=== PATIENT | female | born 1965 | race Caucasian/White ===

== ENCOUNTER 2017-06-28 13:55 | Inpatient (IN) | payer MEDICAID ==
[~2017-06-28] VITALS: Ht 162.6 cm; Wt 108.0 kg
[2017-06-28] MEDS ORDERED: PRAZ1 PO (16:15)
[2017-06-28] MEDS ORDERED: LEVO125 PO (16:15)
[2017-06-28] MEDS ORDERED: VENL-193 PO (16:15)
[2017-06-28] MEDS ORDERED: MODA100 PO (16:15)
[2017-06-28] MEDS ORDERED: HYDR-3110 PO (16:15)
[2017-06-28] MEDS ORDERED: TRAZ-144 PO (16:15)
[2017-06-28] MEDS ORDERED: RANI150T7 PO (16:15)
[2017-06-28] MEDS ORDERED: HALOPERIDOL 5 MG TABLET PO PRN (16:15)
[2017-06-28] MEDS ORDERED: LITH300C3 PO (16:15)
[2017-06-28] MEDS ORDERED: CALC-1038 PO (16:15)
[2017-06-28] MEDS ORDERED: ZOLPIDEM TARTRATE 10 MG TABLET PO PRN (16:15)
[2017-06-28 16:18] VITALS: BP 142/82
[2017-06-28] MEDS ORDERED: VENL-67 PO (16:33)
[2017-06-28] MEDS ORDERED: PNEUMOCOCCAL VACCINE POLYVALENT 0.5 ML VIAL [PPSV23] IM ONE (17:15)
[2017-06-28] MEDS ORDERED: ACETAMINOPHEN 325 MG TABLET PO PRN (19:15)
[2017-06-28] MEDS ORDERED: NAPROXEN 500 MG TABLET PO PRN (19:15)
[2017-06-28] MEDS: HydrOXYzine PAMOATE 25 MG CAPSULE PO SCH (20:33)
[2017-06-28] MEDS: PRAZOSIN HCL 1 MG CAPSULE PO SCH (20:33)
[2017-06-28] MEDS: LITHIUM CARBONATE 600 MG CAPSULE PO SCH (20:33)
[2017-06-29 01:56] VITALS: BP 114/63
[2017-06-29] MEDS ORDERED: LEVOTHYROXINE SODIUM 125 MCG TABLET PO SCH (06:30)
[2017-06-29 08:30] LABS: BASOPHILS % (AUTO) 0.3 % (0.0-2.0); EOSINOPHILS % (AUTO) 2.3 % (1.0-6.0); HEMATOCRIT 38.4 % (36-46); HEMOGLOBIN 13.2 g/dL (12.0-16.0); LYMPHOCYTES # (AUTO) 2.6 K/uL (1.0-4.8); LYMPHOCYTES % (AUTO) 27.2 % (22.0-44.0); MEAN CORPUSCULAR HEMOGLOBIN 30.4 pg (26.0-34.0); MEAN CORPUSCULAR HGB CONC 34.4 G/dL (31.0-37.0); MEAN CORPUSCULAR VOLUME 88 fL (80-100); MONOCYTES # (AUTO) 0.4 K/uL (0.1-1.0); MONOCYTES % (AUTO) 4.1 % (2.0-9.0); NEUTROPHILS # (AUTO) 6.2 K/uL (1.8-7.7); NEUTROPHILS % (AUTO) 66.1 % (40.0-70.0); PLATELET COUNT (AUTO) 227 K/uL (150-450); RED BLOOD CELL COUNT(AUTO) 4.35 MIL/uL (4.00-5.20); RED CELL DISTRIBUTION WIDTH 12.9 % (11.5-14.5); WHITE BLOOD COUNT (AUTO) 9.4 K/uL (4.5-11.0)
[2017-06-29 08:32] LABS: ALANINE AMINOTRANSFERASE 25 U/L (12-78); ALBUMIN 3.3 g/dL (3.4-5.0); ANION GAP 6 mmol/L (8-16); ASPARTATE AMINOTRANSFERASE 16 U/L (15-37); BILIRUBIN,TOTAL 0.3 mg/dL (0.1-1.0); CALCIUM, TOTAL 8.9 mg/dL (8.8-10.5); CARBON DIOXIDE 27 mmol/L (22-29); CHLORIDE 106 mmol/L (98-107); CREATININE 0.73 mg/dL (0.60-1.30); GLOMERULAR FILTR. RATE CALC > 60 mL/min (>60); POTASSIUM 3.7 mmol/L (3.5-5.1); SODIUM SERUM 139 mmol/L (136-145); THYROID STIMULATING HORMONE 1.38 uIU/mL (0.36-3.74); TOTAL PROTEIN, SERUM 6.5 g/dL (6.4-8.2); UREA NITROGEN, BLOOD 11 mg/dL (7-18)
[2017-06-29 08:51] LABS: GLUCOSE, URINE (UA) NEGATIVE (NEGATIVE); KETONES,URINE NEGATIVE (NEGATIVE); LEUKOCYTE ESTERASE ,URINE NEGATIVE (NEGATIVE); OCCULT BLOOD,URINE SMALL (NEGATIVE); PROTEIN,URINE NEGATIVE (NEGATIVE)
[2017-06-29 08:53] LABS: APPEARANCE,URINE HAZY (CLEAR)
[2017-06-29 08:54] LABS: ADD UA MICROSCOPIC YES
[2017-06-29] MEDS: MODAFINIL 100 MG TABLET PO SCH (09:01)
[2017-06-29] MEDS: LITHIUM CARBONATE 300 MG CAPSULE PO SCH (09:01)
[2017-06-29] MEDS: NICOTINE 14 MG/24 HOUR PATCH TD SCH (09:02)
[2017-06-29] MEDS: VENLAFAXINE HCL 75 MG ER CAPSULE PO SCH (09:02)
[2017-06-29 09:03] VITALS: BP 142/77
[2017-06-29] MEDS: RANITIDINE HCL 150 MG TABLET PO SCH ×2 (09:04→16:18)
[2017-06-29 09:06] LABS: RBC,URINE 0-2 /HPF (0-2); SQUAMOUS EPITHELIAL CELL,UR Few /LPF (None Seen); WBC,URINE 0-2 /HPF (0-5)
[2017-06-29] MEDS: LORazepam 2 MG TABLET PO PRN ×2 (09:41→16:49)
[2017-06-29 16:20] VITALS: BP 113/68
[2017-06-29 20:20] VITALS: BP 124/73
[2017-06-29] MEDS: LITHIUM CARBONATE 600 MG CAPSULE PO SCH (20:21)
[2017-06-29] MEDS: HydrOXYzine PAMOATE 25 MG CAPSULE PO SCH (20:21)
[2017-06-29] MEDS: PRAZOSIN HCL 1 MG CAPSULE PO SCH (20:21)
[2017-06-30] MEDS: LEVOTHYROXINE SODIUM 50 MCG TABLET PO SCH (06:04)
[2017-06-30 06:35] VITALS: BP 123/65
[2017-06-30] MEDS: RANITIDINE HCL 150 MG TABLET PO SCH ×2 (08:26→17:34)
[2017-06-30] MEDS: NICOTINE 14 MG/24 HOUR PATCH TD SCH (08:26)
[2017-06-30] MEDS: VENLAFAXINE HCL 75 MG ER CAPSULE PO SCH (08:26)
[2017-06-30] MEDS: MODAFINIL 100 MG TABLET PO SCH (08:26)
[2017-06-30] MEDS: LITHIUM CARBONATE 300 MG CAPSULE PO SCH (08:26)
[2017-06-30 08:57] VITALS: BP 135/83
[2017-06-30] MEDS: LORazepam 2 MG TABLET PO PRN (12:18)
[2017-06-30 17:33] VITALS: BP 126/78
[2017-06-30] MEDS: HydrOXYzine PAMOATE 25 MG CAPSULE PO SCH (21:23)
[2017-06-30] MEDS: LITHIUM CARBONATE 600 MG CAPSULE PO SCH (21:23)
[2017-06-30] MEDS: PRAZOSIN HCL 1 MG CAPSULE PO SCH (21:23)
[2017-07-01] MEDS: LEVOTHYROXINE SODIUM 50 MCG TABLET PO SCH (06:40)
[2017-07-01 06:50] VITALS: BP 110/59
[2017-07-01 08:53] VITALS: BP 117/69
[2017-07-01] MEDS ORDERED: LITHIUM CARBONATE 300 MG CAPSULE PO ONE (09:00)
[2017-07-01] MEDS: VENLAFAXINE HCL 75 MG ER CAPSULE PO SCH (09:12)
[2017-07-01] MEDS: NICOTINE 14 MG/24 HOUR PATCH TD SCH (09:12)
[2017-07-01] MEDS: MODAFINIL 100 MG TABLET PO SCH (09:12)
[2017-07-01] MEDS: RANITIDINE HCL 150 MG TABLET PO SCH ×2 (09:12→16:09)
[2017-07-01] MEDS: ESCITALOPRAM OXALATE 10 MG TABLET PO SCH (09:13)
[2017-07-01] MEDS: LITHIUM CARBONATE 600 MG CAPSULE PO SCH ×2 (09:13→16:09)
[2017-07-01 16:21] VITALS: BP 139/71
[2017-07-01] MEDS: LORazepam 2 MG TABLET PO PRN (16:37)
[2017-07-01] MEDS ORDERED: LITHIUM CARBONATE 600 MG CAPSULE PO SCH (17:00)
[2017-07-01 20:20] VITALS: BP 135/80
[2017-07-01] MEDS: PRAZOSIN HCL 1 MG CAPSULE PO SCH (20:24)
[2017-07-01] MEDS: HydrOXYzine PAMOATE 25 MG CAPSULE PO SCH (20:24)
[2017-07-02 06:27] VITALS: BP 111/65
[2017-07-02] MEDS: LEVOTHYROXINE SODIUM 50 MCG TABLET PO SCH (06:46)
[2017-07-02 08:36] VITALS: BP 115/66
[2017-07-02] MEDS: ESCITALOPRAM OXALATE 10 MG TABLET PO SCH (09:43)
[2017-07-02] MEDS: VENLAFAXINE HCL 75 MG ER CAPSULE PO SCH (09:43)
[2017-07-02] MEDS: RANITIDINE HCL 150 MG TABLET PO SCH ×2 (09:43→16:52)
[2017-07-02] MEDS: MODAFINIL 100 MG TABLET PO SCH (09:43)
[2017-07-02] MEDS: NICOTINE 14 MG/24 HOUR PATCH TD SCH (09:43)
[2017-07-02] MEDS: LITHIUM CARBONATE 600 MG CAPSULE PO SCH ×2 (09:47→16:52)
[2017-07-02 16:13] VITALS: BP 112/73
[2017-07-02] MEDS: LORazepam 2 MG TABLET PO PRN (16:52)
[2017-07-02] MEDS: HydrOXYzine PAMOATE 25 MG CAPSULE PO SCH (21:26)
[2017-07-02] MEDS: PRAZOSIN HCL 1 MG CAPSULE PO SCH (21:26)
[2017-07-03 00:31] VITALS: BP 121/72
[2017-07-03] MEDS: LEVOTHYROXINE SODIUM 50 MCG TABLET PO SCH (05:59)
[2017-07-03 08:36] VITALS: BP 132/71
[2017-07-03] MEDS: RANITIDINE HCL 150 MG TABLET PO SCH ×2 (09:19→16:33)
[2017-07-03] MEDS: NICOTINE 14 MG/24 HOUR PATCH TD SCH (09:19)
[2017-07-03] MEDS: MODAFINIL 100 MG TABLET PO SCH (09:19)
[2017-07-03] MEDS: VENLAFAXINE HCL 75 MG ER CAPSULE PO SCH (09:19)
[2017-07-03] MEDS: ESCITALOPRAM OXALATE 10 MG TABLET PO SCH (09:19)
[2017-07-03] MEDS: LITHIUM CARBONATE 600 MG CAPSULE PO SCH ×2 (09:19→16:33)
[2017-07-03 16:18] VITALS: BP 129/84
[2017-07-03] MEDS: PRAZOSIN HCL 1 MG CAPSULE PO SCH (20:52)
[2017-07-03] MEDS: HydrOXYzine PAMOATE 25 MG CAPSULE PO SCH (20:52)
[2017-07-04 00:15] VITALS: BP 122/78
[2017-07-04] MEDS: LEVOTHYROXINE SODIUM 50 MCG TABLET PO SCH (06:10)
[2017-07-04 08:12] VITALS: BP 120/61
[2017-07-04] MEDS: LITHIUM CARBONATE 600 MG CAPSULE PO SCH ×2 (09:13→16:04)
[2017-07-04] MEDS: ESCITALOPRAM OXALATE 10 MG TABLET PO SCH (09:13)
[2017-07-04] MEDS: MODAFINIL 100 MG TABLET PO SCH (09:13)
[2017-07-04] MEDS: RANITIDINE HCL 150 MG TABLET PO SCH ×2 (09:13→16:04)
[2017-07-04] MEDS: VENLAFAXINE HCL 75 MG ER CAPSULE PO SCH (09:13)
[2017-07-04] MEDS: NICOTINE 14 MG/24 HOUR PATCH TD SCH (09:14)
[2017-07-04 16:13] VITALS: BP 119/83
[2017-07-04 20:31] VITALS: BP 121/76
[2017-07-04] MEDS: HydrOXYzine PAMOATE 25 MG CAPSULE PO SCH (20:31)
[2017-07-04] MEDS: PRAZOSIN HCL 1 MG CAPSULE PO SCH (20:31)
[2017-07-05] MEDS: LEVOTHYROXINE SODIUM 50 MCG TABLET PO SCH (06:02)
[2017-07-05 06:45] VITALS: BP 121/66
[2017-07-05 07:33] LABS: GLUCOSE,POINT OF CARE 142 MG/DL (70-110)
[2017-07-05 08:36] VITALS: BP 115/60
[2017-07-05] MEDS: NICOTINE 14 MG/24 HOUR PATCH TD SCH (08:37)
[2017-07-05] MEDS: MODAFINIL 100 MG TABLET PO SCH (08:37)
[2017-07-05] MEDS: VENLAFAXINE HCL 75 MG ER CAPSULE PO SCH (08:37)
[2017-07-05] MEDS: RANITIDINE HCL 150 MG TABLET PO SCH ×2 (08:38→16:22)
[2017-07-05] MEDS: ESCITALOPRAM OXALATE 10 MG TABLET PO SCH (08:38)
[2017-07-05] MEDS: LITHIUM CARBONATE 600 MG CAPSULE PO SCH ×2 (08:38→16:22)
[2017-07-05 16:34] VITALS: BP 124/62
[2017-07-05] MEDS: HydrOXYzine PAMOATE 25 MG CAPSULE PO SCH (20:57)
[2017-07-05] MEDS: PRAZOSIN HCL 1 MG CAPSULE PO SCH (20:57)
[2017-07-06 00:30] VITALS: BP 109/65
[2017-07-06] MEDS: LEVOTHYROXINE SODIUM 50 MCG TABLET PO SCH (06:10)
[2017-07-06 08:27] VITALS: BP 136/76
[2017-07-06] MEDS: RANITIDINE HCL 150 MG TABLET PO SCH ×2 (08:49→16:05)
[2017-07-06] MEDS: ESCITALOPRAM OXALATE 10 MG TABLET PO SCH (08:49)
[2017-07-06] MEDS: LITHIUM CARBONATE 600 MG CAPSULE PO SCH ×2 (08:49→16:04)
[2017-07-06] MEDS: VENLAFAXINE HCL 75 MG ER CAPSULE PO SCH (08:49)
[2017-07-06] MEDS: MODAFINIL 100 MG TABLET PO SCH (08:49)
[2017-07-06] MEDS: NICOTINE 14 MG/24 HOUR PATCH TD SCH (08:50)
[2017-07-06 16:23] VITALS: BP 132/74
[2017-07-06] MEDS: HydrOXYzine PAMOATE 25 MG CAPSULE PO SCH (20:22)
[2017-07-06] MEDS: PRAZOSIN HCL 1 MG CAPSULE PO SCH (20:22)
[2017-07-07 00:59] VITALS: BP 103/61
[2017-07-07] MEDS: LEVOTHYROXINE SODIUM 50 MCG TABLET PO SCH (06:12)
[2017-07-07 08:23] VITALS: BP 124/64
[2017-07-07] MEDS: ESCITALOPRAM OXALATE 10 MG TABLET PO SCH (08:48)
[2017-07-07] MEDS: VENLAFAXINE HCL 75 MG ER CAPSULE PO SCH (08:48)
[2017-07-07] MEDS: LITHIUM CARBONATE 600 MG CAPSULE PO SCH (08:49)
[2017-07-07] MEDS: MODAFINIL 100 MG TABLET PO SCH (08:49)
[2017-07-07] MEDS: RANITIDINE HCL 150 MG TABLET PO SCH (08:49)
[2017-07-07] MEDS: NICOTINE 14 MG/24 HOUR PATCH TD SCH (08:50)
[2017-07-07] MEDS ORDERED: ESCI5TAB PO (12:30)
[2017-07-07] MEDS ORDERED: NICO-703 TD (12:30)
[2017-07-07] MEDS ORDERED: HYDR-4031 PO ×2 (12:30)
[2017-07-07] MEDS ORDERED: LEVO50TA11 PO (12:30)
[2017-07-07] MEDS ORDERED: MODA200T16 PO (13:09)
== END 2017-07-07 15:00 | disposition home or self-care (01) | DRG 753 ==
LOC: B2S 16:10
PROC: 3E0234Z Introduction of Serum, Toxoid and Vaccine into Muscle, Percutaneous Approach (ICD-10-PCS; principal; 2017-06-29)
DX: F31.5 Bipolar disorder, current episode depressed, severe, with psychotic features (principal); R45.851 Suicidal ideations; Z68.41 Body mass index [BMI] 40.0-44.9, adult; E03.9 Hypothyroidism, unspecified; E66.9 Obesity, unspecified; F17.200 Nicotine dependence, unspecified, uncomplicated; F41.9 Anxiety disorder, unspecified; G47.00 Insomnia, unspecified; J45.909 Unspecified asthma, uncomplicated; K21.9 Gastro-esophageal reflux disease without esophagitis; K59.00 Constipation, unspecified; W45.8XXA Other foreign body or object entering through skin, initial encounter; Y93.89 Activity, other specified; Y92.89 Other specified places as the place of occurrence of the external cause; Y99.8 Other external cause status; S61.519A Laceration without foreign body of unspecified wrist, initial encounter; Z88.8 Allergy status to other drugs, medicaments and biological substances; M19.90 Unspecified osteoarthritis, unspecified site; R03.0 Elevated blood-pressure reading, without diagnosis of hypertension; Z71.51 Drug abuse counseling and surveillance of drug abuser; Z23 Encounter for immunization; Z91.5 Personal history of self-harm
CPT/HCPCS: 80307; 82962; 84436; 84439; 84443; 87081; 90471

== ENCOUNTER 2017-07-15 12:21 | Inpatient (IN) | payer MEDICAID, OTHER ==
[~2017-07-15] VITALS: Ht 162.6 cm; Wt 106.5 kg
[~2017-07-15 12:21] MED LIST: ESCI5TAB PO; HYDR-4031 PO; LEVO50TA11 PO; LITH300C3 PO; MODA200T16 PO; NICO-703 TD; PRAZ1 PO; RANI150T7 PO; VENL-67 PO
[2017-07-15] MEDS ORDERED: PROP10TA73 PO (12:29)
[2017-07-15] MEDS ORDERED: FERR-89 PO (12:29)
[2017-07-15] MEDS ORDERED: TRAZ-144 PO (12:29)
[2017-07-15] MEDS ORDERED: ASPI-556 PO (12:29)
[2017-07-15 13:05] LABS: BASOPHILS # (AUTO) 0.03 K/uL (0.00-0.20); BASOPHILS % (AUTO) 0.2 % (0.0-2.0); EOSINOPHILS # (AUTO) 0.09 K/uL (0.00-0.70); EOSINOPHILS % (AUTO) 0.73 % (1.0-6.0); HEMATOCRIT 43.2 % (36-46); HEMOGLOBIN 14.4 g/dL (12.0-16.0); LYMPHOCYTES # (AUTO) 2.7 K/uL (1.0-4.8); LYMPHOCYTES % (AUTO) 23.1 % (22.0-44.0); MEAN CORPUSCULAR HEMOGLOBIN 29.7 pg (26.0-34.0); MEAN CORPUSCULAR HGB CONC 33.2 G/dL (31.0-37.0); MEAN CORPUSCULAR VOLUME 89 fL (80-100); MONOCYTES # (AUTO) 0.3 K/uL (0.1-1.0); MONOCYTES % (AUTO) 2.8 % (2.0-9.0); NEUTROPHILS # (AUTO) 8.6 K/uL (1.8-7.7); NEUTROPHILS % (AUTO) 73.1 % (40.0-70.0); PLATELET COUNT (AUTO) 257 K/uL (150-450); RED BLOOD CELL COUNT(AUTO) 4.84 MIL/uL (4.00-5.20); RED CELL DISTRIBUTION WIDTH 12.8 % (11.5-14.5)
[2017-07-15 13:07] LABS: APPEARANCE,URINE CLEAR (CLEAR); GLUCOSE, URINE (UA) NEGATIVE (NEGATIVE); KETONES,URINE NEGATIVE (NEGATIVE); LEUKOCYTE ESTERASE ,URINE NEGATIVE (NEGATIVE); OCCULT BLOOD,URINE SMALL (NEGATIVE); PH,URINE 7.5 (5.0-8.0); PROTEIN,URINE NEGATIVE (NEGATIVE)
[2017-07-15 13:24] LABS: WHITE BLOOD COUNT (AUTO) 12.7 K/uL (4.5-11.0)
[2017-07-15 13:25] LABS: ADD UA MICROSCOPIC YES; SQUAMOUS EPITHELIAL CELL,UR Few /LPF (None Seen); WBC,URINE None Seen /HPF (0-5)
[2017-07-15 13:27] LABS: RBC MORPHOLOGY COMMENT NORMAL RBC MORPH
[2017-07-15 13:49] LABS: ANION GAP 12 mmol/L (8-16); CARBON DIOXIDE 25 mmol/L (22-29); CHLORIDE 105 mmol/L (98-107); SODIUM SERUM 142 mmol/L (136-145)
[2017-07-15 13:50] LABS: ASPARTATE AMINOTRANSFERASE 21 U/L (15-37); BILIRUBIN,TOTAL 0.3 mg/dL (0.1-1.0); CALCIUM, TOTAL 9.8 mg/dL (8.8-10.5); GLOMERULAR FILTR. RATE CALC > 60 mL/min (>60)
[2017-07-15 13:54] LABS: UREA NITROGEN, BLOOD 8 mg/dL (7-18)
[2017-07-15] MEDS ORDERED: LORazepam 2 MG TABLET PO ONE (14:00)
[2017-07-15 14:02] LABS: ALANINE AMINOTRANSFERASE 30 U/L (12-78); ALBUMIN 4.2 g/dL (3.4-5.0); TOTAL PROTEIN, SERUM 8.2 g/dL (6.4-8.2)
[2017-07-15 14:03] LABS: LITHIUM 0.53 mmol/L (0.60-1.20)
[2017-07-15] MEDS ORDERED: ZOLPIDEM TARTRATE 10 MG TABLET PO PRN (14:15)
[2017-07-15 14:24] LABS: THYROID STIMULATING HORMONE 2.49 uIU/mL (0.36-3.74)
[2017-07-15] MEDS: LITHIUM CARBONATE 600 MG CAPSULE PO SCH (17:49)
[2017-07-15] MEDS ORDERED: NAPROXEN 500 MG TABLET PO PRN (18:00)
[2017-07-15] MEDS ORDERED: ACETAMINOPHEN 325 MG TABLET PO PRN (18:00)
[2017-07-15 19:02] VITALS: BP 128/76
[2017-07-15] MEDS: PRAZOSIN HCL 1 MG CAPSULE PO SCH (20:30)
[2017-07-15] MEDS: HydrOXYzine PAMOATE 25 MG CAPSULE PO SCH (20:31)
[2017-07-16] MEDS: LEVOTHYROXINE SODIUM 125 MCG TABLET PO SCH (06:39)
[2017-07-16] MEDS: FERROUS SULFATE 325 MG EC TABLET PO SCH (06:39)
[2017-07-16 08:12] VITALS: BP 141/75
[2017-07-16] MEDS: ASPIRIN 81 MG EC TABLET PO SCH (09:38)
[2017-07-16] MEDS: LITHIUM CARBONATE 600 MG CAPSULE PO SCH ×2 (09:38→17:37)
[2017-07-16] MEDS: ESCITALOPRAM OXALATE 10 MG TABLET PO SCH (09:39)
[2017-07-16] MEDS: RANITIDINE HCL 150 MG TABLET PO SCH ×2 (09:40→17:37)
[2017-07-16] MEDS: MODAFINIL 100 MG TABLET PO SCH (09:40)
[2017-07-16] MEDS: NICOTINE 14 MG/24 HOUR PATCH TD SCH (09:45)
[2017-07-16] MEDS: LORazepam 2 MG TABLET PO PRN (11:07)
[2017-07-16 17:26] VITALS: BP 134/65
[2017-07-16] MEDS: PRAZOSIN HCL 1 MG CAPSULE PO SCH (20:17)
[2017-07-16] MEDS: HydrOXYzine PAMOATE 25 MG CAPSULE PO SCH (20:17)
[2017-07-17] MEDS: LEVOTHYROXINE SODIUM 125 MCG TABLET PO SCH (06:39)
[2017-07-17] MEDS: FERROUS SULFATE 325 MG EC TABLET PO SCH (07:03)
[2017-07-17 08:12] VITALS: BP 152/86
[2017-07-17] MEDS: ASPIRIN 81 MG EC TABLET PO SCH (09:26)
[2017-07-17] MEDS: LITHIUM CARBONATE 600 MG CAPSULE PO SCH ×2 (09:26→17:25)
[2017-07-17] MEDS: ESCITALOPRAM OXALATE 10 MG TABLET PO SCH (09:26)
[2017-07-17] MEDS: RANITIDINE HCL 150 MG TABLET PO SCH ×2 (09:27→17:25)
[2017-07-17] MEDS: MODAFINIL 100 MG TABLET PO SCH (09:33)
[2017-07-17] MEDS: NICOTINE 14 MG/24 HOUR PATCH TD SCH (09:39)
[2017-07-17] MEDS: LORazepam 2 MG TABLET PO PRN ×2 (10:54→18:40)
[2017-07-17 18:14] VITALS: BP 130/79
[2017-07-17] MEDS: HydrOXYzine PAMOATE 25 MG CAPSULE PO SCH (21:27)
[2017-07-17] MEDS: PRAZOSIN HCL 1 MG CAPSULE PO SCH (21:27)
[2017-07-18] MEDS: FERROUS SULFATE 325 MG EC TABLET PO SCH (07:03)
[2017-07-18] MEDS: LEVOTHYROXINE SODIUM 125 MCG TABLET PO SCH (07:03)
[2017-07-18 08:00] VITALS: BP 116/77
[2017-07-18] MEDS: ASPIRIN 81 MG EC TABLET PO SCH (08:59)
[2017-07-18] MEDS: NICOTINE 14 MG/24 HOUR PATCH TD SCH (08:59)
[2017-07-18] MEDS: RANITIDINE HCL 150 MG TABLET PO SCH ×2 (08:59→16:54)
[2017-07-18] MEDS: ESCITALOPRAM OXALATE 10 MG TABLET PO SCH (08:59)
[2017-07-18] MEDS: LITHIUM CARBONATE 600 MG CAPSULE PO SCH ×2 (08:59→16:54)
[2017-07-18] MEDS: LORazepam 2 MG TABLET PO PRN ×2 (08:59→16:55)
[2017-07-18] MEDS: MODAFINIL 100 MG TABLET PO SCH (09:04)
[2017-07-18] MEDS: HALOPERIDOL 5 MG TABLET PO PRN ×2 (12:31→16:54)
[2017-07-18 17:10] VITALS: BP 132/87
[2017-07-18] MEDS: PRAZOSIN HCL 1 MG CAPSULE PO SCH (21:22)
[2017-07-18] MEDS: HydrOXYzine PAMOATE 25 MG CAPSULE PO SCH (21:22)
[2017-07-19] MEDS: LEVOTHYROXINE SODIUM 125 MCG TABLET PO SCH (06:55)
[2017-07-19] MEDS: FERROUS SULFATE 325 MG EC TABLET PO SCH (06:55)
[2017-07-19 08:34] VITALS: BP 143/84
[2017-07-19] MEDS: LITHIUM CARBONATE 600 MG CAPSULE PO SCH ×2 (08:42→17:08)
[2017-07-19] MEDS: ESCITALOPRAM OXALATE 10 MG TABLET PO SCH (08:42)
[2017-07-19] MEDS: VENLAFAXINE HCL 75 MG ER CAPSULE PO SCH (08:42)
[2017-07-19] MEDS: ASPIRIN 81 MG EC TABLET PO SCH (08:42)
[2017-07-19] MEDS: RANITIDINE HCL 150 MG TABLET PO SCH ×2 (08:42→17:08)
[2017-07-19] MEDS: NICOTINE 14 MG/24 HOUR PATCH TD SCH (08:43)
[2017-07-19] MEDS: MODAFINIL 100 MG TABLET PO SCH (09:00)
[2017-07-19 16:15] VITALS: BP 128/74
[2017-07-19] MEDS: PRAZOSIN HCL 1 MG CAPSULE PO SCH (21:23)
[2017-07-19] MEDS: HydrOXYzine PAMOATE 25 MG CAPSULE PO SCH (21:23)
[2017-07-20] MEDS: LEVOTHYROXINE SODIUM 125 MCG TABLET PO SCH (06:53)
[2017-07-20] MEDS: FERROUS SULFATE 325 MG EC TABLET PO SCH (06:53)
[2017-07-20] MEDS: PRAZOSIN HCL 1 MG CAPSULE PO SCH ×2 (09:23→21:00)
[2017-07-20] MEDS: LITHIUM CARBONATE 600 MG CAPSULE PO SCH ×2 (09:24→16:03)
[2017-07-20] MEDS: ESCITALOPRAM OXALATE 10 MG TABLET PO SCH (09:24)
[2017-07-20] MEDS: MODAFINIL 100 MG TABLET PO SCH (09:24)
[2017-07-20] MEDS: ASPIRIN 81 MG EC TABLET PO SCH (09:24)
[2017-07-20] MEDS: VENLAFAXINE HCL 75 MG ER CAPSULE PO SCH (09:24)
[2017-07-20] MEDS: NICOTINE 14 MG/24 HOUR PATCH TD SCH (09:26)
[2017-07-20] MEDS: LORazepam 2 MG TABLET PO PRN (09:27)
[2017-07-20] MEDS: RANITIDINE HCL 150 MG TABLET PO SCH ×2 (09:27→16:03)
[2017-07-20 09:29] VITALS: BP 106/65
[2017-07-20 16:33] VITALS: BP 142/81
[2017-07-20] MEDS: HydrOXYzine PAMOATE 25 MG CAPSULE PO SCH (21:01)
[2017-07-21] MEDS: LEVOTHYROXINE SODIUM 125 MCG TABLET PO SCH (06:32)
[2017-07-21] MEDS: FERROUS SULFATE 325 MG EC TABLET PO SCH (06:32)
[2017-07-21] MEDS: ESCITALOPRAM OXALATE 10 MG TABLET PO SCH (10:14)
[2017-07-21] MEDS: VENLAFAXINE HCL 75 MG ER CAPSULE PO SCH (10:14)
[2017-07-21] MEDS: RANITIDINE HCL 150 MG TABLET PO SCH ×2 (10:14→16:21)
[2017-07-21] MEDS: ASPIRIN 81 MG EC TABLET PO SCH (10:14)
[2017-07-21] MEDS: MODAFINIL 100 MG TABLET PO SCH (10:14)
[2017-07-21] MEDS: LITHIUM CARBONATE 600 MG CAPSULE PO SCH ×2 (10:14→16:21)
[2017-07-21 10:24] VITALS: BP 130/74
[2017-07-21] MEDS: NICOTINE 14 MG/24 HOUR PATCH TD SCH (11:58)
[2017-07-21 16:56] VITALS: BP 134/68
[2017-07-21] MEDS: PRAZOSIN HCL 1 MG CAPSULE PO SCH (20:37)
[2017-07-21] MEDS: HydrOXYzine PAMOATE 25 MG CAPSULE PO SCH (20:37)
[2017-07-22] MEDS: LEVOTHYROXINE SODIUM 125 MCG TABLET PO SCH (06:44)
[2017-07-22] MEDS: FERROUS SULFATE 325 MG EC TABLET PO SCH (06:54)
[2017-07-22 08:24] VITALS: BP 134/71
[2017-07-22] MEDS: VENLAFAXINE HCL 75 MG ER CAPSULE PO SCH (09:04)
[2017-07-22] MEDS: MODAFINIL 100 MG TABLET PO SCH (09:04)
[2017-07-22] MEDS: LITHIUM CARBONATE 600 MG CAPSULE PO SCH ×2 (09:04→16:39)
[2017-07-22] MEDS: RANITIDINE HCL 150 MG TABLET PO SCH ×2 (09:04→16:39)
[2017-07-22] MEDS: ESCITALOPRAM OXALATE 10 MG TABLET PO SCH (09:04)
[2017-07-22] MEDS: ASPIRIN 81 MG EC TABLET PO SCH (09:04)
[2017-07-22] MEDS: NICOTINE 14 MG/24 HOUR PATCH TD SCH (09:10)
[2017-07-22 16:45] VITALS: BP 125/65
[2017-07-22] MEDS: PRAZOSIN HCL 1 MG CAPSULE PO SCH (20:41)
[2017-07-22] MEDS: HydrOXYzine PAMOATE 25 MG CAPSULE PO SCH (20:41)
[2017-07-22 20:46] VITALS: BP 128/87
[2017-07-23] MEDS: LEVOTHYROXINE SODIUM 125 MCG TABLET PO SCH (06:39)
[2017-07-23 08:00] VITALS: BP 123/66
[2017-07-23] MEDS: FERROUS SULFATE 325 MG EC TABLET PO SCH (08:06)
[2017-07-23] MEDS: ASPIRIN 81 MG EC TABLET PO SCH (09:02)
[2017-07-23] MEDS: VENLAFAXINE HCL 75 MG ER CAPSULE PO SCH (09:02)
[2017-07-23] MEDS: RANITIDINE HCL 150 MG TABLET PO SCH ×2 (09:03→16:32)
[2017-07-23] MEDS: LITHIUM CARBONATE 600 MG CAPSULE PO SCH ×2 (09:03→16:33)
[2017-07-23] MEDS: ESCITALOPRAM OXALATE 10 MG TABLET PO SCH (09:03)
[2017-07-23] MEDS: NICOTINE 14 MG/24 HOUR PATCH TD SCH (09:03)
[2017-07-23] MEDS: MODAFINIL 100 MG TABLET PO SCH (09:03)
[2017-07-23 16:48] VITALS: BP 115/82
[2017-07-23] MEDS: HydrOXYzine PAMOATE 25 MG CAPSULE PO SCH (22:00)
[2017-07-23] MEDS: PRAZOSIN HCL 1 MG CAPSULE PO SCH (22:00)
[2017-07-24] MEDS: LEVOTHYROXINE SODIUM 125 MCG TABLET PO SCH (06:48)
[2017-07-24] MEDS: FERROUS SULFATE 325 MG EC TABLET PO SCH (07:02)
[2017-07-24 08:00] VITALS: BP 125/79
[2017-07-24] MEDS: ASPIRIN 81 MG EC TABLET PO SCH (09:25)
[2017-07-24] MEDS: LITHIUM CARBONATE 600 MG CAPSULE PO SCH ×2 (09:25→16:10)
[2017-07-24] MEDS: MODAFINIL 100 MG TABLET PO SCH (09:25)
[2017-07-24] MEDS: RANITIDINE HCL 150 MG TABLET PO SCH ×2 (09:26→16:10)
[2017-07-24] MEDS: VENLAFAXINE HCL 75 MG ER CAPSULE PO SCH (09:26)
[2017-07-24] MEDS: ESCITALOPRAM OXALATE 10 MG TABLET PO SCH (09:26)
[2017-07-24] MEDS: NICOTINE 14 MG/24 HOUR PATCH TD SCH (09:28)
[2017-07-24 16:51] VITALS: BP 136/71
[2017-07-24] MEDS: PRAZOSIN HCL 1 MG CAPSULE PO SCH (21:12)
[2017-07-24] MEDS: HydrOXYzine PAMOATE 25 MG CAPSULE PO SCH (21:12)
[2017-07-25] MEDS: LEVOTHYROXINE SODIUM 125 MCG TABLET PO SCH (06:30)
[2017-07-25] MEDS: FERROUS SULFATE 325 MG EC TABLET PO SCH (06:30)
[2017-07-25] MEDS: RANITIDINE HCL 150 MG TABLET PO SCH ×2 (09:45→16:44)
[2017-07-25] MEDS: NICOTINE 14 MG/24 HOUR PATCH TD SCH (09:48)
[2017-07-25] MEDS: VENLAFAXINE HCL 75 MG ER CAPSULE PO SCH (09:49)
[2017-07-25] MEDS: MODAFINIL 100 MG TABLET PO SCH (09:49)
[2017-07-25] MEDS: ASPIRIN 81 MG EC TABLET PO SCH (09:49)
[2017-07-25] MEDS: ESCITALOPRAM OXALATE 10 MG TABLET PO SCH (09:49)
[2017-07-25] MEDS: LITHIUM CARBONATE 600 MG CAPSULE PO SCH ×2 (09:51→16:44)
[2017-07-25 10:17] VITALS: BP 116/72
[2017-07-25 20:00] VITALS: BP 125/93
[2017-07-25] MEDS: PRAZOSIN HCL 1 MG CAPSULE PO SCH (20:12)
[2017-07-25] MEDS: HydrOXYzine PAMOATE 25 MG CAPSULE PO SCH (20:12)
[2017-07-26] MEDS: LEVOTHYROXINE SODIUM 125 MCG TABLET PO SCH (06:40)
[2017-07-26] MEDS: FERROUS SULFATE 325 MG EC TABLET PO SCH (06:56)
[2017-07-26] MEDS: RANITIDINE HCL 150 MG TABLET PO SCH ×2 (09:27→16:46)
[2017-07-26] MEDS: NICOTINE 14 MG/24 HOUR PATCH TD SCH (09:27)
[2017-07-26] MEDS: ESCITALOPRAM OXALATE 10 MG TABLET PO SCH (09:28)
[2017-07-26] MEDS: ASPIRIN 81 MG EC TABLET PO SCH (09:28)
[2017-07-26] MEDS: MODAFINIL 100 MG TABLET PO SCH (09:28)
[2017-07-26] MEDS: LITHIUM CARBONATE 600 MG CAPSULE PO SCH ×2 (09:29→16:46)
[2017-07-26] MEDS: VENLAFAXINE HCL 75 MG ER CAPSULE PO SCH (09:29)
[2017-07-26 09:57] VITALS: BP 126/61
[2017-07-26 16:15] VITALS: BP 125/68
[2017-07-26] MEDS: PRAZOSIN HCL 1 MG CAPSULE PO SCH (21:25)
[2017-07-26] MEDS: HydrOXYzine PAMOATE 25 MG CAPSULE PO SCH (21:25)
[2017-07-27] MEDS: FERROUS SULFATE 325 MG EC TABLET PO SCH (06:49)
[2017-07-27] MEDS: LEVOTHYROXINE SODIUM 125 MCG TABLET PO SCH (06:49)
[2017-07-27 08:37] VITALS: BP 145/79
[2017-07-27] MEDS: VENLAFAXINE HCL 75 MG ER CAPSULE PO SCH (09:27)
[2017-07-27] MEDS: LITHIUM CARBONATE 600 MG CAPSULE PO SCH (09:27)
[2017-07-27] MEDS: ASPIRIN 81 MG EC TABLET PO SCH (09:27)
[2017-07-27] MEDS: ESCITALOPRAM OXALATE 10 MG TABLET PO SCH (09:28)
[2017-07-27] MEDS: MODAFINIL 100 MG TABLET PO SCH (09:28)
[2017-07-27] MEDS: RANITIDINE HCL 150 MG TABLET PO SCH (09:28)
[2017-07-27] MEDS: NICOTINE 14 MG/24 HOUR PATCH TD SCH (09:29)
== END 2017-07-27 15:11 | disposition home or self-care (01) | DRG 753 ==
LOC: EMS 12:23 → 3EI 16:14
DX: F31.4 Bipolar disorder, current episode depressed, severe, without psychotic features (principal); R45.851 Suicidal ideations; Z68.41 Body mass index [BMI] 40.0-44.9, adult; I10 Essential (primary) hypertension; F17.210 Nicotine dependence, cigarettes, uncomplicated; F41.9 Anxiety disorder, unspecified; E03.9 Hypothyroidism, unspecified; E66.9 Obesity, unspecified; J44.9 Chronic obstructive pulmonary disease, unspecified; M54.5 Low back pain; G47.00 Insomnia, unspecified; F23 Brief psychotic disorder; Z88.6 Allergy status to analgesic agent; Z88.8 Allergy status to other drugs, medicaments and biological substances; Z79.899 Other long term (current) drug therapy; Z79.82 Long term (current) use of aspirin
CPT/HCPCS: 84443; 87081; 99285; 99406; G0480

== ENCOUNTER 2017-08-04 18:17 | Inpatient (IN) | payer MEDICAID, OTHER ==
[~2017-08-04] VITALS: Ht 162.6 cm; Wt 104.8 kg
[~2017-08-04 18:17] MED LIST changes: +ASPI-556 PO; +FERR-89 PO; -NICO-703 TD
[2017-08-04 19:21] LABS: BASOPHILS % (AUTO) 0.3 % (0.0-2.0); EOSINOPHILS % (AUTO) 1.4 % (1.0-6.0); HEMATOCRIT 38.1 % (36-46); LYMPHOCYTES # (AUTO) 3.3 K/uL (1.0-4.8); LYMPHOCYTES % (AUTO) 26.2 % (22.0-44.0); MEAN CORPUSCULAR HEMOGLOBIN 30.5 pg (26.0-34.0); MEAN CORPUSCULAR HGB CONC 34.1 G/dL (31.0-37.0); MEAN CORPUSCULAR VOLUME 89 fL (80-100); MONOCYTES # (AUTO) 0.7 K/uL (0.1-1.0); MONOCYTES % (AUTO) 5.6 % (2.0-9.0); NEUTROPHILS # (AUTO) 8.4 K/uL (1.8-7.7); NEUTROPHILS % (AUTO) 66.5 % (40.0-70.0); PLATELET COUNT (AUTO) 262 K/uL (150-450); RED BLOOD CELL COUNT(AUTO) 4.26 MIL/uL (4.00-5.20); RED CELL DISTRIBUTION WIDTH 13.6 % (11.5-14.5)
[2017-08-04 19:34] LABS: ANION GAP 12 mmol/L (8-16); CALCIUM, TOTAL 9.4 mg/dL (8.8-10.5); CARBON DIOXIDE 27 mmol/L (22-29); CHLORIDE 104 mmol/L (98-107); CREATININE 0.83 mg/dL (0.60-1.30); GLOMERULAR FILTR. RATE CALC > 60 mL/min (>60); GLUCOSE,RANDOM 93 mg/dL (70-110); POTASSIUM 3.5 mmol/L (3.5-5.1); SODIUM SERUM 143 mmol/L (136-145); UREA NITROGEN, BLOOD 8 mg/dL (7-18)
[2017-08-04 19:40] LABS: ALANINE AMINOTRANSFERASE 28 U/L (12-78); ALBUMIN 3.6 g/dL (3.4-5.0); ALKALINE PHOSPHATASE 88 U/L (46-116); ASPARTATE AMINOTRANSFERASE 18 U/L (15-37); BILIRUBIN,TOTAL 0.2 mg/dL (0.1-1.0); TOTAL PROTEIN, SERUM 7.2 g/dL (6.4-8.2)
[2017-08-04] MEDS ORDERED: ZOLPIDEM TARTRATE 10 MG TABLET PO PRN (20:15)
[2017-08-04] MEDS ORDERED: HALOPERIDOL 5 MG TABLET PO PRN (20:15)
[2017-08-04] MEDS: PRAZOSIN HCL 1 MG CAPSULE PO SCH (21:00)
[2017-08-05] MEDS ORDERED: INFLUENZA VIRUS VACCINE QVS 2017-18 (3YR+)/PF 60 MCG/0.5 ML SYRINGE IM ONE (00:45)
[2017-08-05 01:38] VITALS: BP 117/75
[2017-08-05 08:27] VITALS: BP 111/53
[2017-08-05] MEDS: LITHIUM CARBONATE 600 MG CAPSULE PO SCH ×2 (08:55→16:02)
[2017-08-05] MEDS: VENLAFAXINE HCL 75 MG ER CAPSULE PO SCH (08:55)
[2017-08-05] MEDS: ESCITALOPRAM OXALATE 10 MG TABLET PO SCH (08:56)
[2017-08-05] MEDS: LORazepam 2 MG TABLET PO PRN (09:01)
[2017-08-05 09:25] LABS: CHOL/HDL RATIO 4.8 (3.9-5.7)
[2017-08-05 16:31] VITALS: BP 124/63
[2017-08-05] MEDS ORDERED: LOPERAMIDE HCL 2 MG CAPSULE PO PRN (17:15)
[2017-08-05] MEDS ORDERED: ALBUTEROL SULFATE HFA 90 MCG/PUFF 8 GM INHALER IH PRN (17:15)
[2017-08-05] MEDS ORDERED: PETROLATUM,WHITE 71 GM JELLY TP PRN (17:15)
[2017-08-05] MEDS ORDERED: ONDANSETRON HCL 4 MG TABLET PO PRN (17:15)
[2017-08-05] MEDS ORDERED: BENZOCAINE/MENTHOL LOZENGE MM PRN (17:15)
[2017-08-05] MEDS ORDERED: ACETAMINOPHEN 325 MG TABLET PO PRN (17:15)
[2017-08-05] MEDS ORDERED: MAGNESIUM HYDROXIDE SUSPENSION 30 ML UDCUP PO PRN (17:15)
[2017-08-05] MEDS ORDERED: CloNIDine HCL 0.1 MG TABLET PO PRN (17:15)
[2017-08-05] MEDS ORDERED: MAG HYDROX/AL HYDROX/SIMETH ES 30 ML SUSPENSION UDCUP PO PRN (17:15)
[2017-08-05] MEDS ORDERED: BACITRACIN 28.4 GM OINTMENT TP PRN (17:15)
[2017-08-05] MEDS: HydrOXYzine PAMOATE 25 MG CAPSULE PO SCH (20:01)
[2017-08-05] MEDS: PRAZOSIN HCL 1 MG CAPSULE PO SCH (20:01)
[2017-08-06 00:23] VITALS: BP 105/62
[2017-08-06] MEDS: LEVOTHYROXINE SODIUM 125 MCG TABLET PO SCH (06:26)
[2017-08-06 08:42] VITALS: BP 120/88
[2017-08-06] MEDS: LITHIUM CARBONATE 600 MG CAPSULE PO SCH ×2 (09:10→16:09)
[2017-08-06] MEDS: OMEGA-3/DHA/EPA/FISH OIL 1,000 MG CAPSULE PO SCH (09:10)
[2017-08-06] MEDS: VENLAFAXINE HCL 75 MG ER CAPSULE PO SCH (09:10)
[2017-08-06] MEDS: ESCITALOPRAM OXALATE 10 MG TABLET PO SCH (09:10)
[2017-08-06] MEDS: OMEPRAZOLE 20 MG CAPSULE PO SCH (09:11)
[2017-08-06] MEDS: DOCUSATE SODIUM 100 MG CAPSULE PO SCH (09:11)
[2017-08-06] MEDS: IBUPROFEN 600 MG TABLET PO PRN (09:11)
[2017-08-06 09:35] LABS: CHOL/HDL RATIO 4.7 (3.9-5.7); THYROID STIMULATING HORMONE 0.73 uIU/mL (0.36-3.74)
[2017-08-06] MEDS: LORazepam 2 MG TABLET PO PRN (12:30)
[2017-08-06 16:25] VITALS: BP 110/75
[2017-08-06] MEDS: HydrOXYzine PAMOATE 25 MG CAPSULE PO SCH (20:10)
[2017-08-06] MEDS: PRAZOSIN HCL 1 MG CAPSULE PO SCH (20:10)
[2017-08-07 00:35] VITALS: BP 114/78
[2017-08-07] MEDS: LEVOTHYROXINE SODIUM 125 MCG TABLET PO SCH (06:26)
[2017-08-07 08:01] VITALS: BP 115/71
[2017-08-07] MEDS ORDERED: OMEGA-3/DHA/EPA/FISH OIL 1,000 MG CAPSULE PO SCH (09:00)
[2017-08-07] MEDS: ESCITALOPRAM OXALATE 10 MG TABLET PO SCH (09:18)
[2017-08-07] MEDS: DOCUSATE SODIUM 100 MG CAPSULE PO SCH (09:18)
[2017-08-07] MEDS: LITHIUM CARBONATE 600 MG CAPSULE PO SCH ×2 (09:18→16:13)
[2017-08-07] MEDS: CHOLECALCIFEROL (VIT D3) 1,000 UNITS TABLET PO SCH (09:18)
[2017-08-07] MEDS: OMEPRAZOLE 20 MG CAPSULE PO SCH (09:19)
[2017-08-07] MEDS: OMEGA-3/DHA/EPA/FISH OIL 1,000 MG CAPSULE PO SCH (09:19)
[2017-08-07] MEDS: VENLAFAXINE HCL 75 MG ER CAPSULE PO SCH (09:19)
[2017-08-07] MEDS ORDERED: NICOTINE 21 MG/24 HOUR PATCH TD ONE (12:45)
[2017-08-07 16:23] VITALS: BP 122/90
[2017-08-07] MEDS: HydrOXYzine PAMOATE 25 MG CAPSULE PO SCH (20:16)
[2017-08-07] MEDS: PRAZOSIN HCL 1 MG CAPSULE PO SCH (20:16)
[2017-08-07] MEDS: OLANZapine 10 MG RAPDIS TABLET PO SCH (20:16)
[2017-08-08 00:15] VITALS: BP 110/61
[2017-08-08] MEDS: LEVOTHYROXINE SODIUM 125 MCG TABLET PO SCH (06:34)
[2017-08-08 08:02] VITALS: BP 132/83
[2017-08-08 08:06] LABS: HEMATOCRIT 40.4 % (36-46); HEMOGLOBIN 13.4 g/dL (12.0-16.0); MEAN CORPUSCULAR HEMOGLOBIN 30.2 pg (26.0-34.0); MEAN CORPUSCULAR HGB CONC 33.3 G/dL (31.0-37.0); MEAN CORPUSCULAR VOLUME 91 fL (80-100); PLATELET COUNT (AUTO) 232 K/uL (150-450); RED BLOOD CELL COUNT(AUTO) 4.46 MIL/uL (4.00-5.20); RED CELL DISTRIBUTION WIDTH 13.6 % (11.5-14.5)
[2017-08-08 08:17] LABS: ANION GAP 8 mmol/L (8-16); CARBON DIOXIDE 27 mmol/L (22-29); CHLORIDE 108 mmol/L (98-107); GLOMERULAR FILTR. RATE CALC > 60 mL/min (>60); GLUCOSE,RANDOM 114 mg/dL (70-110); PHOSPHORUS 4.3 mg/dL (2.5-4.9); POTASSIUM 3.8 mmol/L (3.5-5.1); SODIUM SERUM 143 mmol/L (136-145); UREA NITROGEN, BLOOD 12 mg/dL (7-18)
[2017-08-08 08:22] LABS: LITHIUM 0.71 mmol/L (0.60-1.20)
[2017-08-08] MEDS: OMEGA-3/DHA/EPA/FISH OIL 1,000 MG CAPSULE PO SCH (09:16)
[2017-08-08] MEDS: VENLAFAXINE HCL 75 MG ER CAPSULE PO SCH (09:16)
[2017-08-08] MEDS: DOCUSATE SODIUM 100 MG CAPSULE PO SCH (09:16)
[2017-08-08] MEDS: LITHIUM CARBONATE 600 MG CAPSULE PO SCH ×2 (09:17→16:32)
[2017-08-08] MEDS: OMEPRAZOLE 20 MG CAPSULE PO SCH (09:17)
[2017-08-08] MEDS: ESCITALOPRAM OXALATE 10 MG TABLET PO SCH (09:17)
[2017-08-08] MEDS: CHOLECALCIFEROL (VIT D3) 1,000 UNITS TABLET PO SCH (09:17)
[2017-08-08] MEDS: NICOTINE 21 MG/24 HOUR PATCH TD SCH (09:18)
[2017-08-08 09:48] LABS: BAND NEUTROPHILS % (MANUAL) 1 % (1-5); EOSINOPHILS % (MANUAL) 2 % (1-6); LYMPHOCYTES % (MANUAL) 18 % (22-44); MONOCYTES % (MANUAL) 6 % (2-9); SEGMENTED NEUTROPHILS % 73 % (40-70)
[2017-08-08 16:36] VITALS: BP 130/67
[2017-08-08] MEDS: PRAZOSIN HCL 1 MG CAPSULE PO SCH (20:34)
[2017-08-08] MEDS: OLANZapine 10 MG RAPDIS TABLET PO SCH (20:34)
[2017-08-08] MEDS: HydrOXYzine PAMOATE 25 MG CAPSULE PO SCH (20:34)
[2017-08-09 00:15] VITALS: BP 108/56
[2017-08-09] MEDS: LEVOTHYROXINE SODIUM 125 MCG TABLET PO SCH (06:38)
[2017-08-09 08:09] VITALS: BP 116/84
[2017-08-09] MEDS: ESCITALOPRAM OXALATE 10 MG TABLET PO SCH (09:00)
[2017-08-09] MEDS: NICOTINE 21 MG/24 HOUR PATCH TD SCH (09:00)
[2017-08-09] MEDS: LITHIUM CARBONATE 600 MG CAPSULE PO SCH ×2 (09:00→16:28)
[2017-08-09] MEDS: CHOLECALCIFEROL (VIT D3) 1,000 UNITS TABLET PO SCH (09:00)
[2017-08-09] MEDS: OMEPRAZOLE 20 MG CAPSULE PO SCH (09:00)
[2017-08-09] MEDS: OMEGA-3/DHA/EPA/FISH OIL 1,000 MG CAPSULE PO SCH (09:00)
[2017-08-09] MEDS: VENLAFAXINE HCL 75 MG ER CAPSULE PO SCH (09:00)
[2017-08-09] MEDS: DOCUSATE SODIUM 100 MG CAPSULE PO SCH (09:00)
[2017-08-09 16:09] VITALS: BP 108/62
[2017-08-09] MEDS: HydrOXYzine PAMOATE 25 MG CAPSULE PO SCH (20:00)
[2017-08-09] MEDS: PRAZOSIN HCL 1 MG CAPSULE PO SCH (20:00)
[2017-08-09] MEDS: OLANZapine 10 MG RAPDIS TABLET PO SCH (20:00)
[2017-08-10 00:32] VITALS: BP 114/66
[2017-08-10] MEDS: LEVOTHYROXINE SODIUM 125 MCG TABLET PO SCH (06:12)
[2017-08-10 08:22] VITALS: BP 119/65
[2017-08-10] MEDS: LITHIUM CARBONATE 600 MG CAPSULE PO SCH ×2 (08:29→16:36)
[2017-08-10] MEDS: OMEGA-3/DHA/EPA/FISH OIL 1,000 MG CAPSULE PO SCH (08:30)
[2017-08-10] MEDS: OMEPRAZOLE 20 MG CAPSULE PO SCH (08:30)
[2017-08-10] MEDS: ESCITALOPRAM OXALATE 10 MG TABLET PO SCH (08:30)
[2017-08-10] MEDS: DOCUSATE SODIUM 100 MG CAPSULE PO SCH (08:30)
[2017-08-10] MEDS: CHOLECALCIFEROL (VIT D3) 1,000 UNITS TABLET PO SCH (08:30)
[2017-08-10] MEDS: VENLAFAXINE HCL 75 MG ER CAPSULE PO SCH (08:34)
[2017-08-10] MEDS: NICOTINE 21 MG/24 HOUR PATCH TD SCH (08:35)
[2017-08-10 16:00] VITALS: BP 140/72
[2017-08-10] MEDS: PRAZOSIN HCL 1 MG CAPSULE PO SCH (20:24)
[2017-08-10] MEDS: OLANZapine 10 MG RAPDIS TABLET PO SCH (20:24)
[2017-08-10] MEDS: HydrOXYzine PAMOATE 25 MG CAPSULE PO SCH (20:24)
[2017-08-11 00:47] VITALS: BP 117/69
[2017-08-11] MEDS: LEVOTHYROXINE SODIUM 125 MCG TABLET PO SCH (06:41)
[2017-08-11 08:23] VITALS: BP 118/61
[2017-08-11] MEDS: ESCITALOPRAM OXALATE 10 MG TABLET PO SCH (08:23)
[2017-08-11] MEDS: CHOLECALCIFEROL (VIT D3) 1,000 UNITS TABLET PO SCH (08:23)
[2017-08-11] MEDS: OMEGA-3/DHA/EPA/FISH OIL 1,000 MG CAPSULE PO SCH (08:24)
[2017-08-11] MEDS: DOCUSATE SODIUM 100 MG CAPSULE PO SCH (08:24)
[2017-08-11] MEDS: VENLAFAXINE HCL 75 MG ER CAPSULE PO SCH (08:24)
[2017-08-11] MEDS: LITHIUM CARBONATE 600 MG CAPSULE PO SCH ×2 (08:24→16:04)
[2017-08-11] MEDS: NICOTINE 21 MG/24 HOUR PATCH TD SCH (08:24)
[2017-08-11] MEDS: OMEPRAZOLE 20 MG CAPSULE PO SCH (08:24)
[2017-08-11 16:00] VITALS: BP 126/79
[2017-08-11] MEDS: HydrOXYzine PAMOATE 25 MG CAPSULE PO SCH (20:06)
[2017-08-11] MEDS: PRAZOSIN HCL 1 MG CAPSULE PO SCH (20:07)
[2017-08-11] MEDS: OLANZapine 10 MG RAPDIS TABLET PO SCH (20:07)
[2017-08-11] MEDS: IBUPROFEN 600 MG TABLET PO PRN (21:38)
[2017-08-12] VITALS: BP 121/66
[2017-08-12] MEDS: LEVOTHYROXINE SODIUM 125 MCG TABLET PO SCH (06:40)
[2017-08-12] MEDS: LITHIUM CARBONATE 600 MG CAPSULE PO SCH (08:17)
[2017-08-12] MEDS: NICOTINE 21 MG/24 HOUR PATCH TD SCH (08:17)
[2017-08-12] MEDS: CHOLECALCIFEROL (VIT D3) 1,000 UNITS TABLET PO SCH (08:18)
[2017-08-12] MEDS: OMEPRAZOLE 20 MG CAPSULE PO SCH (08:18)
[2017-08-12] MEDS: VENLAFAXINE HCL 75 MG ER CAPSULE PO SCH (08:18)
[2017-08-12] MEDS: OMEGA-3/DHA/EPA/FISH OIL 1,000 MG CAPSULE PO SCH (08:18)
[2017-08-12] MEDS: DOCUSATE SODIUM 100 MG CAPSULE PO SCH (08:18)
[2017-08-12] MEDS: ESCITALOPRAM OXALATE 10 MG TABLET PO SCH (08:18)
[2017-08-12 08:29] VITALS: BP 104/72
[2017-08-12] MEDS ORDERED: OLAN10TA6 PO (11:36)
[2017-08-12] MEDS ORDERED: OMEG-135 PO (11:36)
[2017-08-12] MEDS ORDERED: OMEP20 PO (11:36)
== END 2017-08-12 14:50 | disposition home or self-care (01) | DRG 753 ==
LOC: EMS 18:18 → B2S 22:00
DX: F31.4 Bipolar disorder, current episode depressed, severe, without psychotic features (principal); R45.851 Suicidal ideations; Z91.14 Patient's other noncompliance with medication regimen; I10 Essential (primary) hypertension; E03.9 Hypothyroidism, unspecified; E66.9 Obesity, unspecified; G47.00 Insomnia, unspecified; G89.29 Other chronic pain; J44.9 Chronic obstructive pulmonary disease, unspecified; K21.9 Gastro-esophageal reflux disease without esophagitis; F17.200 Nicotine dependence, unspecified, uncomplicated; Z79.899 Other long term (current) drug therapy; F41.9 Anxiety disorder, unspecified; M54.9 Dorsalgia, unspecified; Z88.8 Allergy status to other drugs, medicaments and biological substances; D72.829 Elevated white blood cell count, unspecified; E55.9 Vitamin D deficiency, unspecified; E78.00 Pure hypercholesterolemia, unspecified; E78.1 Pure hyperglyceridemia; M54.5 Low back pain; Z71.6 Tobacco abuse counseling
CPT/HCPCS: 82306; 83735; 84100; 84443; 85007; 87081; 99285; G0480

== ENCOUNTER 2017-11-23 11:15 | Inpatient (IN) | payer MEDICAID, OTHER ==
[~2017-11-23] VITALS: Ht 162.6 cm; Wt 109.9 kg
[~2017-11-23 11:15] MED LIST changes: -ASPI-556 PO; +ASPI81 PO; +CALC1TAB93 PO; +ESCI10TA PO; -ESCI5TAB PO; -HYDR-4031 PO; +LEVO125T11 PO; -LEVO50TA11 PO; -LITH300C3 PO; +LITH600 PO; -MODA200T16 PO; +OLAN10TA6 PO; +OMEP20 PO; -RANI150T7 PO; -VENL-67 PO; +VENL25TA47 PO
[2017-11-23 11:28] LABS: GLUCOSE,POINT OF CARE 166 MG/DL (70-110)
[2017-11-23 12:06] LABS: BASOPHILS % (AUTO) 0.6 % (0.0-2.0); HEMATOCRIT 43.5 % (36-46); HEMOGLOBIN 14.8 g/dL (12.0-16.0); LYMPHOCYTES # (AUTO) 1.6 K/uL (1.0-4.8); LYMPHOCYTES % (AUTO) 16.7 % (22.0-44.0); MEAN CORPUSCULAR HEMOGLOBIN 29.9 pg (26.0-34.0); MEAN CORPUSCULAR VOLUME 88 fL (80-100); MONOCYTES # (AUTO) 0.4 K/uL (0.1-1.0); MONOCYTES % (AUTO) 3.8 % (2.0-9.0); NEUTROPHILS # (AUTO) 7.4 K/uL (1.8-7.7); NEUTROPHILS % (AUTO) 77.9 % (40.0-70.0); PLATELET COUNT (AUTO) 271 K/uL (150-450); RED BLOOD CELL COUNT(AUTO) 4.95 MIL/uL (4.00-5.20); RED CELL DISTRIBUTION WIDTH 13.2 % (11.5-14.5)
[2017-11-23 12:14] LABS: ANION GAP 7 mmol/L (8-16); CALCIUM, TOTAL 9.3 mg/dL (8.8-10.5); CARBON DIOXIDE 29 mmol/L (22-29); CHLORIDE 105 mmol/L (98-107); CREATININE 0.81 mg/dL (0.60-1.30); GLOMERULAR FILTR. RATE CALC > 60 mL/min (>60); GLUCOSE,RANDOM 183 mg/dL (70-110); POTASSIUM 3.5 mmol/L (3.5-5.1); SODIUM SERUM 141 mmol/L (136-145); UREA NITROGEN, BLOOD 10 mg/dL (7-18)
[2017-11-23 12:19] LABS: ALANINE AMINOTRANSFERASE 31 U/L (12-78); ALBUMIN 3.7 g/dL (3.4-5.0); ALKALINE PHOSPHATASE 99 U/L (46-116); ASPARTATE AMINOTRANSFERASE 20 U/L (15-37); BILIRUBIN,TOTAL 0.2 mg/dL (0.1-1.0); TOTAL PROTEIN, SERUM 7.7 g/dL (6.4-8.2)
[2017-11-23 12:21] LABS: ACETAMINOPHEN < 2 mcg/mL (10-30)
[2017-11-23 12:25] LABS: SALICYLATE 3.5 mg/dL (2.8-20.0)
[2017-11-23] MEDS ORDERED: ZOLPIDEM TARTRATE 10 MG TABLET PO PRN (17:15)
[2017-11-23] MEDS ORDERED: HALOPERIDOL 5 MG TABLET PO PRN (17:15)
[2017-11-23] MEDS ORDERED: LORazepam 2 MG TABLET PO PRN (17:15)
[2017-11-23 18:45] LABS: AMPHET/METH SCREEN,URINE NEGATIVE (NEGATIVE); BARBITURATE SCREEN, URINE NEGATIVE (NEGATIVE); BENZODIAZEPINES SCREEN,URINE NEGATIVE (NEGATIVE); CANNABINOID SCREEN,URINE NEGATIVE (NEGATIVE); COCAINE SCREEN,URINE NEGATIVE (NEGATIVE); METHADONE SCREEN, URINE NEGATIVE (NEGATIVE); OPIATE SCREEN,URINE NEGATIVE (NEGATIVE)
[2017-11-23 18:46] LABS: PHENCYCLIDINE SCREEN,URINE NEGATIVE (NEGATIVE)
[2017-11-23] MEDS: OLANZapine 10 MG RAPDIS TABLET PO SCH (20:10)
[2017-11-23] MEDS: LITHIUM CARBONATE 300 MG CAPSULE PO SCH (20:10)
[2017-11-23 20:15] VITALS: BP 112/71
[2017-11-23 20:38] LABS: GLUCOMETER DEV NAME(LOC) BV2N3; GLUCOSE,POINT OF CARE 160 MG/DL (70-110)
[2017-11-23] MEDS: PRAZOSIN HCL 1 MG CAPSULE PO SCH (21:19)
[2017-11-23] MEDS ORDERED: INFLUENZA VIRUS VACCINE QVS 2017-18 (3YR+)/PF 60 MCG/0.5 ML SYRINGE IM ONE (21:30)
[2017-11-24 02:04] VITALS: BP 100/63
[2017-11-24] MEDS ORDERED: PNEUMOCOCCAL VACCINE POLYVALENT 0.5 ML VIAL [PPSV23] IM ONE (02:30)
[2017-11-24] MEDS: FERROUS SULFATE 325 MG EC TABLET PO SCH (06:35)
[2017-11-24] MEDS: LEVOTHYROXINE SODIUM 125 MCG TABLET PO SCH (06:35)
[2017-11-24 08:04] VITALS: BP 113/78
[2017-11-24] MEDS: NICOTINE 21 MG/24 HOUR PATCH TD SCH (08:50)
[2017-11-24] MEDS: ASPIRIN 81 MG CHEWABLE TABLET PO SCH (08:50)
[2017-11-24] MEDS: ESCITALOPRAM OXALATE 10 MG TABLET PO SCH (08:50)
[2017-11-24] MEDS: VENLAFAXINE HCL 150 MG ER CAPSULE PO SCH (08:50)
[2017-11-24] MEDS: OMEPRAZOLE 20 MG CAPSULE PO SCH (08:50)
[2017-11-24] MEDS: LITHIUM CARBONATE 300 MG CAPSULE PO SCH ×2 (08:50→20:03)
[2017-11-24] MEDS: CALCIUM OYSTER SHELL 250 MG-VIT D3 125 UNITS TABLET PO SCH (08:50)
[2017-11-24 08:55] LABS: BASOPHILS % (AUTO) 0.5 % (0.0-2.0); HEMATOCRIT 42.1 % (36-46); HEMOGLOBIN 14.2 g/dL (12.0-16.0); LYMPHOCYTES # (AUTO) 1.9 K/uL (1.0-4.8); LYMPHOCYTES % (AUTO) 20.8 % (22.0-44.0); MEAN CORPUSCULAR HEMOGLOBIN 29.7 pg (26.0-34.0); MEAN CORPUSCULAR HGB CONC 33.8 G/dL (31.0-37.0); MEAN CORPUSCULAR VOLUME 88 fL (80-100); MONOCYTES # (AUTO) 0.4 K/uL (0.1-1.0); MONOCYTES % (AUTO) 4.5 % (2.0-9.0); NEUTROPHILS # (AUTO) 6.7 K/uL (1.8-7.7); NEUTROPHILS % (AUTO) 72.2 % (40.0-70.0); PLATELET COUNT (AUTO) 240 K/uL (150-450); RED BLOOD CELL COUNT(AUTO) 4.79 MIL/uL (4.00-5.20)
[2017-11-24 09:11] LABS: HEMOGLOBIN A1C 6.2 % (4.5-6.2)
[2017-11-24 09:19] LABS: CHOL/HDL RATIO 4.2 (3.9-5.7); FREE T4 (FREE THYROXINE) 0.8 ng/dL (0.76-1.46); THYROID STIMULATING HORMONE 2.35 uIU/mL (0.36-3.74)
[2017-11-24 16:02] VITALS: BP 111/73
[2017-11-24] MEDS: OLANZapine 10 MG RAPDIS TABLET PO SCH (20:03)
[2017-11-24] MEDS: PRAZOSIN HCL 1 MG CAPSULE PO SCH (20:03)
[2017-11-25 04:06] VITALS: BP 103/61
[2017-11-25] MEDS: FERROUS SULFATE 325 MG EC TABLET PO SCH (06:32)
[2017-11-25] MEDS: LEVOTHYROXINE SODIUM 125 MCG TABLET PO SCH (06:32)
[2017-11-25 08:30] VITALS: BP_SYST 118; BP_SYST 132; BP_DIAS 69; BP_DIAS 79
[2017-11-25] MEDS: ESCITALOPRAM OXALATE 10 MG TABLET PO SCH (08:31)
[2017-11-25] MEDS: ASPIRIN 81 MG CHEWABLE TABLET PO SCH (08:31)
[2017-11-25] MEDS: LITHIUM CARBONATE 300 MG CAPSULE PO SCH ×2 (08:31→20:14)
[2017-11-25] MEDS: VENLAFAXINE HCL 150 MG ER CAPSULE PO SCH (08:31)
[2017-11-25] MEDS: OMEPRAZOLE 20 MG CAPSULE PO SCH (08:32)
[2017-11-25] MEDS: CALCIUM OYSTER SHELL 250 MG-VIT D3 125 UNITS TABLET PO SCH (08:32)
[2017-11-25] MEDS: NICOTINE 21 MG/24 HOUR PATCH TD SCH (08:39)
[2017-11-25 08:45] VITALS: BP 133/97
[2017-11-25 16:01] VITALS: BP 122/74
[2017-11-25] MEDS: PRAZOSIN HCL 1 MG CAPSULE PO SCH (20:15)
[2017-11-25] MEDS: OLANZapine 10 MG RAPDIS TABLET PO SCH (20:15)
[2017-11-26] MEDS: FERROUS SULFATE 325 MG EC TABLET PO SCH (06:14)
[2017-11-26] MEDS: LEVOTHYROXINE SODIUM 125 MCG TABLET PO SCH (06:14)
[2017-11-26] MEDS: LITHIUM CARBONATE 300 MG CAPSULE PO SCH ×2 (08:12→20:22)
[2017-11-26] MEDS: OMEPRAZOLE 20 MG CAPSULE PO SCH (08:12)
[2017-11-26] MEDS: ESCITALOPRAM OXALATE 10 MG TABLET PO SCH (08:12)
[2017-11-26] MEDS: NICOTINE 21 MG/24 HOUR PATCH TD SCH (08:12)
[2017-11-26] MEDS: VENLAFAXINE HCL 150 MG ER CAPSULE PO SCH (08:12)
[2017-11-26] MEDS: ASPIRIN 81 MG CHEWABLE TABLET PO SCH (08:12)
[2017-11-26] MEDS: CALCIUM OYSTER SHELL 250 MG-VIT D3 125 UNITS TABLET PO SCH (08:12)
[2017-11-26 08:25] VITALS: BP 117/80
[2017-11-26 16:00] VITALS: BP 121/77
[2017-11-26 20:15] VITALS: BP 112/80
[2017-11-26] MEDS: OLANZapine 10 MG RAPDIS TABLET PO SCH (20:21)
[2017-11-26] MEDS: PRAZOSIN HCL 1 MG CAPSULE PO SCH (20:22)
[2017-11-27] MEDS: FERROUS SULFATE 325 MG EC TABLET PO SCH (06:15)
[2017-11-27] MEDS: LEVOTHYROXINE SODIUM 125 MCG TABLET PO SCH (06:15)
[2017-11-27 06:21] VITALS: BP 114/62
[2017-11-27 08:32] VITALS: BP 118/71
[2017-11-27] MEDS: OMEPRAZOLE 20 MG CAPSULE PO SCH (09:37)
[2017-11-27] MEDS: ESCITALOPRAM OXALATE 10 MG TABLET PO SCH (09:37)
[2017-11-27] MEDS: ASPIRIN 81 MG CHEWABLE TABLET PO SCH (09:37)
[2017-11-27] MEDS: LITHIUM CARBONATE 300 MG CAPSULE PO SCH ×2 (09:37→20:09)
[2017-11-27] MEDS: VENLAFAXINE HCL 150 MG ER CAPSULE PO SCH (09:37)
[2017-11-27] MEDS: NICOTINE 21 MG/24 HOUR PATCH TD SCH (09:37)
[2017-11-27] MEDS: CALCIUM OYSTER SHELL 250 MG-VIT D3 125 UNITS TABLET PO SCH (09:37)
[2017-11-27 16:30] VITALS: BP 115/69
[2017-11-27 20:09] VITALS: BP 110/78
[2017-11-27] MEDS: OLANZapine 10 MG RAPDIS TABLET PO SCH (20:09)
[2017-11-27] MEDS: PRAZOSIN HCL 1 MG CAPSULE PO SCH (20:09)
[2017-11-28 06:20] VITALS: BP 108/68
[2017-11-28] MEDS: LEVOTHYROXINE SODIUM 125 MCG TABLET PO SCH (06:38)
[2017-11-28] MEDS: FERROUS SULFATE 325 MG EC TABLET PO SCH (06:38)
[2017-11-28] MEDS: ASPIRIN 81 MG CHEWABLE TABLET PO SCH (08:36)
[2017-11-28] MEDS: OMEPRAZOLE 20 MG CAPSULE PO SCH (08:36)
[2017-11-28] MEDS: VENLAFAXINE HCL 150 MG ER CAPSULE PO SCH (08:36)
[2017-11-28] MEDS: CALCIUM OYSTER SHELL 250 MG-VIT D3 125 UNITS TABLET PO SCH (08:36)
[2017-11-28] MEDS: LITHIUM CARBONATE 300 MG CAPSULE PO SCH ×2 (08:36→20:57)
[2017-11-28] MEDS: ESCITALOPRAM OXALATE 10 MG TABLET PO SCH (08:36)
[2017-11-28] MEDS: NICOTINE 21 MG/24 HOUR PATCH TD SCH (08:37)
[2017-11-28 12:53] VITALS: BP 116/64
[2017-11-28 16:10] VITALS: BP 110/76
[2017-11-28] MEDS: OLANZapine 10 MG RAPDIS TABLET PO SCH (20:57)
[2017-11-28] MEDS: PRAZOSIN HCL 1 MG CAPSULE PO SCH (20:57)
[2017-11-29 04:37] VITALS: BP 126/80
[2017-11-29] MEDS: FERROUS SULFATE 325 MG EC TABLET PO SCH (06:36)
[2017-11-29] MEDS: LEVOTHYROXINE SODIUM 125 MCG TABLET PO SCH (06:36)
[2017-11-29 08:14] VITALS: BP 122/77
[2017-11-29] MEDS: ASPIRIN 81 MG CHEWABLE TABLET PO SCH (08:19)
[2017-11-29] MEDS: OMEPRAZOLE 20 MG CAPSULE PO SCH (08:19)
[2017-11-29] MEDS: LITHIUM CARBONATE 300 MG CAPSULE PO SCH ×2 (08:19→20:09)
[2017-11-29] MEDS: VENLAFAXINE HCL 150 MG ER CAPSULE PO SCH (08:19)
[2017-11-29] MEDS: CALCIUM OYSTER SHELL 250 MG-VIT D3 125 UNITS TABLET PO SCH (08:19)
[2017-11-29] MEDS: NICOTINE 21 MG/24 HOUR PATCH TD SCH (08:20)
[2017-11-29] MEDS: ESCITALOPRAM OXALATE 10 MG TABLET PO SCH (08:20)
[2017-11-29 16:05] VITALS: BP 116/71
[2017-11-29] MEDS: OLANZapine 10 MG RAPDIS TABLET PO SCH (20:09)
[2017-11-29] MEDS: PRAZOSIN HCL 1 MG CAPSULE PO SCH (20:09)
[2017-11-30 05:49] VITALS: BP 10/86
[2017-11-30] MEDS: LEVOTHYROXINE SODIUM 125 MCG TABLET PO SCH (06:32)
[2017-11-30] MEDS: FERROUS SULFATE 325 MG EC TABLET PO SCH (06:44)
[2017-11-30 08:24] VITALS: BP 122/79
[2017-11-30] MEDS: CALCIUM OYSTER SHELL 250 MG-VIT D3 125 UNITS TABLET PO SCH (09:32)
[2017-11-30] MEDS: VENLAFAXINE HCL 150 MG ER CAPSULE PO SCH (09:32)
[2017-11-30] MEDS: ASPIRIN 81 MG CHEWABLE TABLET PO SCH (09:33)
[2017-11-30] MEDS: ESCITALOPRAM OXALATE 10 MG TABLET PO SCH (09:33)
[2017-11-30] MEDS: LITHIUM CARBONATE 300 MG CAPSULE PO SCH ×2 (09:33→20:55)
[2017-11-30] MEDS: OMEPRAZOLE 20 MG CAPSULE PO SCH (09:33)
[2017-11-30] MEDS: NICOTINE 21 MG/24 HOUR PATCH TD SCH (09:38)
[2017-11-30 16:35] VITALS: BP 109/72
[2017-11-30] MEDS: PRAZOSIN HCL 1 MG CAPSULE PO SCH (20:55)
[2017-11-30] MEDS: OLANZapine 10 MG RAPDIS TABLET PO SCH (20:55)
[2017-12-01 06:19] VITALS: BP 120/74
[2017-12-01] MEDS: FERROUS SULFATE 325 MG EC TABLET PO SCH (06:47)
[2017-12-01] MEDS: LEVOTHYROXINE SODIUM 125 MCG TABLET PO SCH (06:47)
[2017-12-01 08:16] VITALS: BP 114/75
[2017-12-01] MEDS: LITHIUM CARBONATE 300 MG CAPSULE PO SCH ×2 (09:17→20:17)
[2017-12-01] MEDS: CALCIUM OYSTER SHELL 250 MG-VIT D3 125 UNITS TABLET PO SCH (09:17)
[2017-12-01] MEDS: VENLAFAXINE HCL 75 MG ER CAPSULE PO SCH (09:17)
[2017-12-01] MEDS: ASPIRIN 81 MG CHEWABLE TABLET PO SCH (09:18)
[2017-12-01] MEDS: OMEPRAZOLE 20 MG CAPSULE PO SCH (09:18)
[2017-12-01] MEDS: NICOTINE 21 MG/24 HOUR PATCH TD SCH (09:23)
[2017-12-01 16:24] VITALS: BP 120/72
[2017-12-01] MEDS: OLANZapine 10 MG RAPDIS TABLET PO SCH (20:17)
[2017-12-01] MEDS: PRAZOSIN HCL 1 MG CAPSULE PO SCH (20:17)
[2017-12-02 06:23] VITALS: BP 103/60
[2017-12-02] MEDS: FERROUS SULFATE 325 MG EC TABLET PO SCH (06:48)
[2017-12-02] MEDS: LEVOTHYROXINE SODIUM 125 MCG TABLET PO SCH (06:48)
[2017-12-02 08:03] VITALS: BP 123/68
[2017-12-02] MEDS: OMEPRAZOLE 20 MG CAPSULE PO SCH (08:11)
[2017-12-02] MEDS: VENLAFAXINE HCL 75 MG ER CAPSULE PO SCH (08:11)
[2017-12-02] MEDS: NICOTINE 21 MG/24 HOUR PATCH TD SCH (08:11)
[2017-12-02] MEDS: ASPIRIN 81 MG CHEWABLE TABLET PO SCH (08:12)
[2017-12-02] MEDS: CALCIUM OYSTER SHELL 250 MG-VIT D3 125 UNITS TABLET PO SCH (08:12)
[2017-12-02] MEDS: LITHIUM CARBONATE 300 MG CAPSULE PO SCH (08:12)
[2017-12-02] MEDS ORDERED: VENL75CA55 PO (11:14)
[2017-12-02] MEDS ORDERED: LITH300C3 PO (11:14)
[2017-12-02] MEDS ORDERED: OLAN10TA22 PO (11:14)
[2017-12-02] MEDS ORDERED: PRAZ1 PO (11:14)
[2017-12-02] MEDS ORDERED: VENL-67 PO (12:26)
[2017-12-02] MEDS ORDERED: FERR-89 PO (12:27)
== END 2017-12-02 15:55 | disposition home or self-care (01) | DRG 753 ==
LOC: EMS 11:17 → B2S 18:28
PROVIDERS: ADMIT Psychiatry & Neurology Child & Adolescent Psychiatry; ATTEND Psychiatry & Neurology Child & Adolescent Psychiatry
DX: F31.4 Bipolar disorder, current episode depressed, severe, without psychotic features (principal); R45.851 Suicidal ideations; Z68.41 Body mass index [BMI] 40.0-44.9, adult; I10 Essential (primary) hypertension; K21.9 Gastro-esophageal reflux disease without esophagitis; E03.9 Hypothyroidism, unspecified; J44.9 Chronic obstructive pulmonary disease, unspecified; D64.9 Anemia, unspecified; M19.90 Unspecified osteoarthritis, unspecified site; F41.9 Anxiety disorder, unspecified; R63.0 Anorexia; M54.9 Dorsalgia, unspecified; Z88.8 Allergy status to other drugs, medicaments and biological substances; Z79.82 Long term (current) use of aspirin; Z79.899 Other long term (current) drug therapy; Z28.21 Immunization not carried out because of patient refusal
CPT/HCPCS: 82962; 83036; 84439; 84443; 87081; 90471; 99285; G0480; G0481

== ENCOUNTER 2017-12-11 09:32 | Inpatient (IN) | payer MEDICAID, OTHER ==
[~2017-12-11] VITALS: Ht 162.6 cm; Wt 109.1 kg
[~2017-12-11 09:32] MED LIST changes: -ESCI10TA PO; +LITH300C3 PO; +OLAN10TA22 PO; +VENL-67 PO; -VENL25TA47 PO; +VENL75CA55 PO
[2017-12-11 10:26] LABS: AMPHET/METH SCREEN,URINE NEGATIVE (NEGATIVE); BARBITURATE SCREEN, URINE NEGATIVE (NEGATIVE); BENZODIAZEPINES SCREEN,URINE NEGATIVE (NEGATIVE); CANNABINOID SCREEN,URINE NEGATIVE (NEGATIVE); COCAINE SCREEN,URINE NEGATIVE (NEGATIVE); METHADONE SCREEN, URINE NEGATIVE (NEGATIVE); OPIATE SCREEN,URINE NEGATIVE (NEGATIVE)
[2017-12-11 10:28] LABS: PHENCYCLIDINE SCREEN,URINE NEGATIVE (NEGATIVE)
[2017-12-11 10:30] LABS: ANION GAP 7 mmol/L (8-16); CALCIUM, TOTAL 9.3 mg/dL (8.8-10.5); CARBON DIOXIDE 30 mmol/L (22-29); CHLORIDE 105 mmol/L (98-107); CREATININE 0.89 mg/dL (0.60-1.30); GLOMERULAR FILTR. RATE CALC > 60 mL/min (>60); GLUCOSE,RANDOM 125 mg/dL (70-110); POTASSIUM 3.9 mmol/L (3.5-5.1); SODIUM SERUM 142 mmol/L (136-145); UREA NITROGEN, BLOOD 11 mg/dL (7-18)
[2017-12-11 10:33] LABS: BASOPHILS % (AUTO) 0.3 % (0.0-2.0); EOSINOPHILS % (AUTO) 1.1 % (1.0-6.0); HEMATOCRIT 43.3 % (36-46); HEMOGLOBIN 14.7 g/dL (12.0-16.0); LYMPHOCYTES # (AUTO) 1.9 K/uL (1.0-4.8); LYMPHOCYTES % (AUTO) 18.9 % (22.0-44.0); MEAN CORPUSCULAR VOLUME 88 fL (80-100); MONOCYTES # (AUTO) 0.5 K/uL (0.1-1.0); MONOCYTES % (AUTO) 4.6 % (2.0-9.0); NEUTROPHILS # (AUTO) 7.4 K/uL (1.8-7.7); NEUTROPHILS % (AUTO) 75.1 % (40.0-70.0); PLATELET COUNT (AUTO) 265 K/uL (150-450); RED BLOOD CELL COUNT(AUTO) 4.89 MIL/uL (4.00-5.20); RED CELL DISTRIBUTION WIDTH 13.4 % (11.5-14.5)
[2017-12-11 10:36] LABS: ALANINE AMINOTRANSFERASE 38 U/L (12-78); ALBUMIN 3.8 g/dL (3.4-5.0); ALKALINE PHOSPHATASE 108 U/L (46-116); ASPARTATE AMINOTRANSFERASE 27 U/L (15-37); BILIRUBIN,TOTAL 0.3 mg/dL (0.1-1.0); TOTAL PROTEIN, SERUM 7.9 g/dL (6.4-8.2)
[2017-12-11 10:47] LABS: LITHIUM 0.31 mmol/L (0.60-1.20)
[2017-12-11] MEDS ORDERED: ZOLPIDEM TARTRATE 10 MG TABLET PO PRN (11:00)
[2017-12-11] MEDS ORDERED: HALOPERIDOL 5 MG TABLET PO PRN (11:00)
[2017-12-11 11:20] LABS: CHOL/HDL RATIO 4.2 (3.9-5.7); CHOLESTEROL 168 mg/dL (131-200); FREE T4 (FREE THYROXINE) 1.02 ng/dL (0.76-1.46); HDL CHOLESTEROL 40 mg/dL (40-60); LDL CHOL (CALC.) 95 mg/dL (0-130); TRIGLYCERIDES 166 mg/dL (15-150)
[2017-12-11 13:38] VITALS: BP 114/81
[2017-12-11 16:29] VITALS: BP 129/84
[2017-12-11] MEDS: LITHIUM CARBONATE 300 MG CAPSULE PO SCH (20:54)
[2017-12-11] MEDS: PRAZOSIN HCL 1 MG CAPSULE PO SCH (20:54)
[2017-12-11] MEDS: OLANZapine 10 MG TABLET PO SCH (20:57)
[2017-12-12 01:00] VITALS: BP 121/78
[2017-12-12] MEDS ORDERED: PNEUMOCOCCAL VACCINE POLYVALENT 0.5 ML VIAL [PPSV23] IM ONE (04:30)
[2017-12-12 08:59] VITALS: BP 126/66
[2017-12-12] MEDS ORDERED: VENLAFAXINE HCL 75 MG ER CAPSULE PO SCH (09:00)
[2017-12-12] MEDS: LITHIUM CARBONATE 300 MG CAPSULE PO SCH (09:00)
[2017-12-12] MEDS: NICOTINE 21 MG/24 HOUR PATCH TD SCH (09:00)
[2017-12-12] MEDS: OLANZapine 5 MG TABLET PO SCH (11:04)
[2017-12-12] MEDS: LORazepam 2 MG TABLET PO PRN (11:04)
[2017-12-12 16:22] VITALS: BP 112/75
[2017-12-12] MEDS: MIRTAZAPINE 15 MG TABLET PO SCH (20:40)
[2017-12-12] MEDS: OLANZapine 10 MG TABLET PO SCH (20:40)
[2017-12-12] MEDS: PRAZOSIN HCL 1 MG CAPSULE PO SCH (20:40)
[2017-12-13 06:19] VITALS: BP 120/75
[2017-12-13] MEDS: NICOTINE 21 MG/24 HOUR PATCH TD SCH (08:22)
[2017-12-13] MEDS: OLANZapine 5 MG TABLET PO SCH (08:22)
[2017-12-13] MEDS: VENLAFAXINE HCL 75 MG ER CAPSULE PO SCH (08:22)
[2017-12-13 08:46] VITALS: BP 123/82
[2017-12-13] MEDS: LORazepam 2 MG TABLET PO PRN (10:43)
[2017-12-13 16:43] VITALS: BP 124/79
[2017-12-13 20:28] VITALS: BP 123/73
[2017-12-13] MEDS: OLANZapine 10 MG TABLET PO SCH (20:28)
[2017-12-13] MEDS: PRAZOSIN HCL 1 MG CAPSULE PO SCH (20:28)
[2017-12-13] MEDS: MIRTAZAPINE 15 MG TABLET PO SCH (20:28)
[2017-12-14 06:26] VITALS: BP 115/66
[2017-12-14 08:20] VITALS: BP 122/75
[2017-12-14] MEDS: VENLAFAXINE HCL 75 MG ER CAPSULE PO SCH (08:23)
[2017-12-14] MEDS: OLANZapine 5 MG TABLET PO SCH (08:25)
[2017-12-14] MEDS: NICOTINE 21 MG/24 HOUR PATCH TD SCH (08:31)
[2017-12-14 16:09] VITALS: BP 116/67
[2017-12-14] MEDS: MIRTAZAPINE 15 MG TABLET PO SCH (20:30)
[2017-12-14] MEDS: PRAZOSIN HCL 1 MG CAPSULE PO SCH (20:30)
[2017-12-14] MEDS: OLANZapine 10 MG TABLET PO SCH (20:31)
[2017-12-15 00:15] VITALS: BP 118/72
[2017-12-15] MEDS: VENLAFAXINE HCL 75 MG ER CAPSULE PO SCH (08:11)
[2017-12-15] MEDS: NICOTINE 21 MG/24 HOUR PATCH TD SCH (08:11)
[2017-12-15] MEDS: OLANZapine 5 MG TABLET PO SCH (08:11)
[2017-12-15 08:32] VITALS: BP 107/72
[2017-12-15 16:34] VITALS: BP 119/65
[2017-12-15] MEDS: OLANZapine 10 MG TABLET PO SCH (20:28)
[2017-12-15] MEDS: MIRTAZAPINE 15 MG TABLET PO SCH (20:28)
[2017-12-15] MEDS: PRAZOSIN HCL 1 MG CAPSULE PO SCH (20:28)
[2017-12-16 07:31] VITALS: BP 110/77
[2017-12-16] MEDS: VENLAFAXINE HCL 75 MG ER CAPSULE PO SCH (09:11)
[2017-12-16] MEDS: OLANZapine 5 MG TABLET PO SCH (09:11)
[2017-12-16] MEDS: NICOTINE 21 MG/24 HOUR PATCH TD SCH (09:11)
[2017-12-16 10:24] VITALS: BP 121/61
[2017-12-16] MEDS: LORazepam 2 MG TABLET PO PRN (13:23)
[2017-12-16 16:08] VITALS: BP 112/66
[2017-12-16] MEDS: PRAZOSIN HCL 1 MG CAPSULE PO SCH (20:29)
[2017-12-16] MEDS: MIRTAZAPINE 15 MG TABLET PO SCH (20:29)
[2017-12-16] MEDS: OLANZapine 10 MG TABLET PO SCH (20:29)
[2017-12-16 20:35] VITALS: BP 125/75
[2017-12-17 07:01] VITALS: BP 116/83
[2017-12-17 08:11] VITALS: BP 124/85
[2017-12-17] MEDS: OLANZapine 5 MG TABLET PO SCH (08:25)
[2017-12-17] MEDS: VENLAFAXINE HCL 75 MG ER CAPSULE PO SCH (08:25)
[2017-12-17] MEDS: NICOTINE 21 MG/24 HOUR PATCH TD SCH (08:26)
[2017-12-17] MEDS: PARoxetine HCL 20 MG TABLET PO SCH (10:37)
[2017-12-17 16:26] VITALS: BP 114/67
[2017-12-17] MEDS: OLANZapine 10 MG TABLET PO SCH (20:23)
[2017-12-17] MEDS: MIRTAZAPINE 15 MG TABLET PO SCH (20:23)
[2017-12-17] MEDS: PRAZOSIN HCL 1 MG CAPSULE PO SCH (20:23)
[2017-12-18 01:30] VITALS: BP 121/73
[2017-12-18 08:20] VITALS: BP 125/71
[2017-12-18] MEDS: OLANZapine 5 MG TABLET PO SCH (08:40)
[2017-12-18] MEDS: VENLAFAXINE HCL 75 MG ER CAPSULE PO SCH (08:41)
[2017-12-18] MEDS: PARoxetine HCL 20 MG TABLET PO SCH (08:41)
[2017-12-18] MEDS: NICOTINE 21 MG/24 HOUR PATCH TD SCH (08:41)
[2017-12-18 16:17] VITALS: BP 121/68
[2017-12-18] MEDS: OLANZapine 10 MG TABLET PO SCH (20:21)
[2017-12-18] MEDS: PRAZOSIN HCL 1 MG CAPSULE PO SCH (20:21)
[2017-12-18] MEDS: MIRTAZAPINE 15 MG TABLET PO SCH (20:21)
[2017-12-19 06:06] VITALS: BP 101/59
[2017-12-19 08:32] VITALS: BP 136/76
[2017-12-19] MEDS: PARoxetine HCL 20 MG TABLET PO SCH (08:36)
[2017-12-19] MEDS: VENLAFAXINE HCL 75 MG ER CAPSULE PO SCH (08:36)
[2017-12-19] MEDS: NICOTINE 21 MG/24 HOUR PATCH TD SCH (08:36)
[2017-12-19] MEDS: OLANZapine 5 MG TABLET PO SCH (08:36)
[2017-12-19 16:11] VITALS: BP 121/70
[2017-12-19] MEDS: MIRTAZAPINE 15 MG TABLET PO SCH (20:07)
[2017-12-19] MEDS: PRAZOSIN HCL 1 MG CAPSULE PO SCH (20:07)
[2017-12-19] MEDS: OLANZapine 10 MG TABLET PO SCH (20:07)
[2017-12-20 01:35] VITALS: BP 125/61
[2017-12-20] MEDS: PARoxetine HCL 20 MG TABLET PO SCH (08:14)
[2017-12-20] MEDS: VENLAFAXINE HCL 75 MG ER CAPSULE PO SCH (08:14)
[2017-12-20] MEDS: NICOTINE 21 MG/24 HOUR PATCH TD SCH (08:14)
[2017-12-20] MEDS: OLANZapine 5 MG TABLET PO SCH (08:14)
[2017-12-20 08:35] VITALS: BP 122/68
[2017-12-20 16:21] VITALS: BP 106/70
[2017-12-20] MEDS: MIRTAZAPINE 15 MG TABLET PO SCH (20:10)
[2017-12-20] MEDS: OLANZapine 10 MG TABLET PO SCH (20:10)
[2017-12-20] MEDS: PRAZOSIN HCL 1 MG CAPSULE PO SCH (20:10)
[2017-12-21 06:47] VITALS: BP 115/69
[2017-12-21] MEDS: OLANZapine 5 MG TABLET PO SCH (08:27)
[2017-12-21] MEDS: PARoxetine HCL 20 MG TABLET PO SCH (08:27)
[2017-12-21] MEDS: VENLAFAXINE HCL 75 MG ER CAPSULE PO SCH (08:27)
[2017-12-21 08:38] VITALS: BP 122/72
[2017-12-21] MEDS: NICOTINE 21 MG/24 HOUR PATCH TD SCH (09:03)
[2017-12-21 16:40] VITALS: BP 107/84
[2017-12-21] MEDS ORDERED: ACETAMINOPHEN 325 MG TABLET PO PRN (17:15)
[2017-12-21] MEDS ORDERED: IBUPROFEN 600 MG TABLET PO PRN (17:15)
[2017-12-21] MEDS: MIRTAZAPINE 15 MG TABLET PO SCH (20:08)
[2017-12-21] MEDS: PRAZOSIN HCL 1 MG CAPSULE PO SCH (20:08)
[2017-12-21] MEDS: OLANZapine 10 MG TABLET PO SCH (20:08)
[2017-12-21 20:10] VITALS: BP 125/63
[2017-12-22 00:44] VITALS: BP 103/71
[2017-12-22] MEDS: NICOTINE 21 MG/24 HOUR PATCH TD SCH (08:30)
[2017-12-22] MEDS: PARoxetine HCL 20 MG TABLET PO SCH (08:30)
[2017-12-22] MEDS: OLANZapine 5 MG TABLET PO SCH (08:30)
[2017-12-22] MEDS: VENLAFAXINE HCL 75 MG ER CAPSULE PO SCH (08:30)
[2017-12-22 08:44] VITALS: BP 137/89
[2017-12-22] MEDS ORDERED: OLAN10TA3 PO (13:17)
[2017-12-22] MEDS ORDERED: VENL-68 PO (13:17)
[2017-12-22] MEDS ORDERED: PARO20TA24 PO (13:17)
[2017-12-22] MEDS ORDERED: OLAN5TAB2 PO (13:17)
[2017-12-22] MEDS ORDERED: PRAZ1 PO (13:17)
[2017-12-22] MEDS ORDERED: MIRT15 PO (13:17)
== END 2017-12-22 16:35 | disposition home or self-care (01) | DRG 753 ==
LOC: EMS 09:35 → B2S 11:59
PROVIDERS: ATTEND Psychiatry & Neurology Child & Adolescent Psychiatry
DX: F31.5 Bipolar disorder, current episode depressed, severe, with psychotic features (principal); R45.851 Suicidal ideations; I10 Essential (primary) hypertension; D64.9 Anemia, unspecified; K21.9 Gastro-esophageal reflux disease without esophagitis; E03.9 Hypothyroidism, unspecified; F41.9 Anxiety disorder, unspecified; M19.90 Unspecified osteoarthritis, unspecified site; Z79.899 Other long term (current) drug therapy; Z28.21 Immunization not carried out because of patient refusal
CPT/HCPCS: 84439; 84443; 87081; 90471; 99285; G0480

== ENCOUNTER 2018-01-01 11:11 | Inpatient (IN) | payer MEDICAID, OTHER ==
[~2018-01-01] VITALS: Ht 162.6 cm; Wt 109.9 kg
[~2018-01-01 11:11] MED LIST changes: -ASPI81 PO; -CALC1TAB93 PO; -FERR-89 PO; -LEVO125T11 PO; -LITH300C3 PO; -LITH600 PO; +MIRT15 PO; -OLAN10TA22 PO; +OLAN10TA3 PO; -OLAN10TA6 PO; +OLAN5TAB2 PO; -OMEP20 PO; +PARO20TA24 PO; -VENL-67 PO; +VENL-68 PO; -VENL75CA55 PO
[2018-01-01 12:23] LABS: BASOPHILS % (AUTO) 0.3 % (0.0-2.0); EOSINOPHILS % (AUTO) 0.7 % (1.0-6.0); HEMATOCRIT 41.9 % (36-46); HEMOGLOBIN 14.3 g/dL (12.0-16.0); LYMPHOCYTES # (AUTO) 1.9 K/uL (1.0-4.8); LYMPHOCYTES % (AUTO) 21.2 % (22.0-44.0); MEAN CORPUSCULAR HEMOGLOBIN 30.2 pg (26.0-34.0); MEAN CORPUSCULAR HGB CONC 34.1 G/dL (31.0-37.0); MEAN CORPUSCULAR VOLUME 88 fL (80-100); MONOCYTES # (AUTO) 0.4 K/uL (0.1-1.0); MONOCYTES % (AUTO) 4.4 % (2.0-9.0); NEUTROPHILS # (AUTO) 6.5 K/uL (1.8-7.7); NEUTROPHILS % (AUTO) 73.4 % (40.0-70.0); PLATELET COUNT (AUTO) 244 K/uL (150-450); RED BLOOD CELL COUNT(AUTO) 4.74 MIL/uL (4.00-5.20); RED CELL DISTRIBUTION WIDTH 13.8 % (11.5-14.5)
[2018-01-01] MEDS ORDERED: IBUPROFEN 800 MG TABLET PO ONE (12:30)
[2018-01-01] MEDS ORDERED: LORazepam 2 MG TABLET PO ONE (12:30)
[2018-01-01 12:41] LABS: ANION GAP 7 mmol/L (8-16); CALCIUM, TOTAL 8.7 mg/dL (8.8-10.5); CARBON DIOXIDE 30 mmol/L (22-29); CHLORIDE 105 mmol/L (98-107); CREATININE 0.78 mg/dL (0.60-1.30); GLOMERULAR FILTR. RATE CALC > 60 mL/min (>60); GLUCOSE,RANDOM 115 mg/dL (70-110); POTASSIUM 3.7 mmol/L (3.5-5.1); SODIUM SERUM 142 mmol/L (136-145); UREA NITROGEN, BLOOD 10 mg/dL (7-18)
[2018-01-01 12:45] LABS: ALANINE AMINOTRANSFERASE 32 U/L (12-78); ALBUMIN 3.7 g/dL (3.4-5.0); ALKALINE PHOSPHATASE 108 U/L (46-116); ASPARTATE AMINOTRANSFERASE 23 U/L (15-37); BILIRUBIN,TOTAL 0.3 mg/dL (0.1-1.0); TOTAL PROTEIN, SERUM 7.6 g/dL (6.4-8.2)
[2018-01-01 13:10] LABS: APPEARANCE,URINE CLEAR (CLEAR); BILIRUBIN,URINE NEGATIVE (NEGATIVE); GLUCOSE, URINE (UA) NEGATIVE (NEGATIVE); KETONES,URINE NEGATIVE (NEGATIVE); LEUKOCYTE ESTERASE ,URINE NEGATIVE (NEGATIVE); NITRATE,URINE NEGATIVE (NEGATIVE); OCCULT BLOOD,URINE MODERATE (NEGATIVE); PH,URINE 7.5 (5.0-8.0); PROTEIN,URINE NEGATIVE (NEGATIVE); UROBILINOGEN,URINE 0.2 mg/dL (<=1.0)
[2018-01-01 13:14] LABS: AMPHET/METH SCREEN,URINE NEGATIVE (NEGATIVE); BARBITURATE SCREEN, URINE NEGATIVE (NEGATIVE); BENZODIAZEPINES SCREEN,URINE NEGATIVE (NEGATIVE); CANNABINOID SCREEN,URINE NEGATIVE (NEGATIVE); COCAINE SCREEN,URINE NEGATIVE (NEGATIVE); METHADONE SCREEN, URINE NEGATIVE (NEGATIVE); OPIATE SCREEN,URINE NEGATIVE (NEGATIVE)
[2018-01-01 13:16] LABS: PHENCYCLIDINE SCREEN,URINE NEGATIVE (NEGATIVE)
[2018-01-01 13:20] LABS: BACTERIA,URINE Rare /HPF (None Seen); SQUAMOUS EPITHELIAL CELL,UR Rare /LPF (None Seen); WBC,URINE None Seen /HPF (0-5)
[2018-01-01] MEDS ORDERED: ZOLPIDEM TARTRATE 10 MG TABLET PO PRN (13:45)
[2018-01-01] MEDS ORDERED: PNEUMOCOCCAL VACCINE POLYVALENT 0.5 ML VIAL [PPSV23] IM ONE (23:45)
[2018-01-02 00:10] VITALS: BP 115/67
[2018-01-02 08:12] LABS: CHOL/HDL RATIO 4.5 (3.9-5.7); FREE T4 (FREE THYROXINE) 0.78 ng/dL (0.76-1.46); THYROID STIMULATING HORMONE 2.26 uIU/mL (0.36-3.74)
[2018-01-02 08:43] LABS: HEMOGLOBIN A1C 6.2 % (4.5-6.2)
[2018-01-02 09:19] VITALS: BP 117/57
[2018-01-02] MEDS: VENLAFAXINE HCL 150 MG ER CAPSULE PO SCH (12:00)
[2018-01-02] MEDS: PARoxetine HCL 20 MG TABLET PO SCH (12:00)
[2018-01-02] MEDS: OLANZapine 5 MG TABLET PO SCH (12:00)
[2018-01-02 16:59] VITALS: BP 117/61
[2018-01-02] MEDS: MIRTAZAPINE 15 MG TABLET PO SCH (20:52)
[2018-01-02] MEDS: OLANZapine 10 MG TABLET PO SCH (20:52)
[2018-01-02] MEDS: PRAZOSIN HCL 1 MG CAPSULE PO SCH (20:52)
[2018-01-03 01:28] VITALS: BP 116/92
[2018-01-03 08:17] VITALS: BP 125/60
[2018-01-03] MEDS: VENLAFAXINE HCL 150 MG ER CAPSULE PO SCH (10:03)
[2018-01-03] MEDS: PARoxetine HCL 20 MG TABLET PO SCH (10:05)
[2018-01-03] MEDS: OLANZapine 5 MG TABLET PO SCH (10:05)
[2018-01-03 16:00] VITALS: BP 104/67
[2018-01-03] MEDS: PRAZOSIN HCL 1 MG CAPSULE PO SCH (20:41)
[2018-01-03] MEDS: OLANZapine 10 MG TABLET PO SCH (20:41)
[2018-01-03] MEDS: MIRTAZAPINE 15 MG TABLET PO SCH (20:41)
[2018-01-04 00:50] VITALS: BP 109/64
[2018-01-04 08:20] VITALS: BP 118/71
[2018-01-04] MEDS: VENLAFAXINE HCL 150 MG ER CAPSULE PO SCH (09:53)
[2018-01-04] MEDS: LORazepam 2 MG TABLET PO PRN (09:53)
[2018-01-04] MEDS: PARoxetine HCL 20 MG TABLET PO SCH (09:53)
[2018-01-04] MEDS: OLANZapine 5 MG TABLET PO SCH (09:53)
[2018-01-04] MEDS: HALOPERIDOL 5 MG TABLET PO PRN (09:53)
[2018-01-04 16:21] VITALS: BP 116/73
[2018-01-04] MEDS: OLANZapine 10 MG TABLET PO SCH (20:28)
[2018-01-04] MEDS: MIRTAZAPINE 15 MG TABLET PO SCH (20:28)
[2018-01-04] MEDS: PRAZOSIN HCL 1 MG CAPSULE PO SCH (20:41)
[2018-01-05 05:19] VITALS: BP 119/68
[2018-01-05 08:10] VITALS: BP 121/87
[2018-01-05] MEDS: PARoxetine HCL 20 MG TABLET PO SCH (10:10)
[2018-01-05] MEDS: OLANZapine 5 MG TABLET PO SCH (10:11)
[2018-01-05] MEDS: VENLAFAXINE HCL 75 MG ER CAPSULE PO SCH (10:12)
[2018-01-05] MEDS: NICOTINE 21 MG/24 HOUR PATCH TD SCH (14:02)
[2018-01-05 16:10] VITALS: BP 118/69
[2018-01-05] MEDS: PRAZOSIN HCL 1 MG CAPSULE PO SCH (21:47)
[2018-01-05] MEDS: MIRTAZAPINE 15 MG TABLET PO SCH (21:47)
[2018-01-05] MEDS: OLANZapine 10 MG TABLET PO SCH (21:47)
[2018-01-06 06:12] VITALS: BP 118/70
[2018-01-06 08:09] VITALS: BP 111/66
[2018-01-06] MEDS: PARoxetine HCL 20 MG TABLET PO SCH (08:58)
[2018-01-06] MEDS: OLANZapine 5 MG TABLET PO SCH (08:58)
[2018-01-06] MEDS: VENLAFAXINE HCL 75 MG ER CAPSULE PO SCH (08:58)
[2018-01-06] MEDS: NICOTINE 21 MG/24 HOUR PATCH TD SCH (08:59)
[2018-01-06 16:12] VITALS: BP 115/61
[2018-01-06] MEDS: MIRTAZAPINE 15 MG TABLET PO SCH (20:24)
[2018-01-06] MEDS: OLANZapine 10 MG TABLET PO SCH (20:24)
[2018-01-06] MEDS: PRAZOSIN HCL 1 MG CAPSULE PO SCH (20:31)
[2018-01-07 00:11] VITALS: BP_SYST 112
[2018-01-07 08:18] VITALS: BP 116/63
[2018-01-07] MEDS: VENLAFAXINE HCL 75 MG ER CAPSULE PO SCH (08:19)
[2018-01-07] MEDS: PARoxetine HCL 20 MG TABLET PO SCH (08:20)
[2018-01-07] MEDS: OLANZapine 5 MG TABLET PO SCH (08:20)
[2018-01-07] MEDS: NICOTINE 21 MG/24 HOUR PATCH TD SCH (08:20)
[2018-01-07 16:35] VITALS: BP 115/59
[2018-01-07] MEDS: OLANZapine 10 MG TABLET PO SCH (20:20)
[2018-01-07] MEDS: MIRTAZAPINE 15 MG TABLET PO SCH (20:21)
[2018-01-07] MEDS: PRAZOSIN HCL 1 MG CAPSULE PO SCH (20:21)
[2018-01-08 01:16] VITALS: BP 106/60
[2018-01-08 08:14] VITALS: BP 107/67
[2018-01-08] MEDS: OLANZapine 5 MG TABLET PO SCH (08:59)
[2018-01-08] MEDS: VENLAFAXINE HCL 75 MG ER CAPSULE PO SCH (08:59)
[2018-01-08] MEDS: HALOPERIDOL 5 MG TABLET PO PRN (08:59)
[2018-01-08] MEDS: PARoxetine HCL 20 MG TABLET PO SCH (08:59)
[2018-01-08] MEDS: LORazepam 2 MG TABLET PO PRN (09:00)
[2018-01-08] MEDS: NICOTINE 21 MG/24 HOUR PATCH TD SCH (09:00)
[2018-01-08 16:14] VITALS: BP 114/69
[2018-01-08] MEDS: MIRTAZAPINE 15 MG TABLET PO SCH (19:52)
[2018-01-08] MEDS: OLANZapine 10 MG TABLET PO SCH (19:52)
[2018-01-08] MEDS: PRAZOSIN HCL 1 MG CAPSULE PO SCH (20:25)
[2018-01-09 06:29] VITALS: BP 126/69
[2018-01-09 08:00] VITALS: BP 117/62
[2018-01-09] MEDS: VENLAFAXINE HCL 75 MG ER CAPSULE PO SCH (08:32)
[2018-01-09] MEDS: PARoxetine HCL 20 MG TABLET PO SCH (08:33)
[2018-01-09] MEDS: OLANZapine 5 MG TABLET PO SCH (08:33)
[2018-01-09] MEDS: NICOTINE 21 MG/24 HOUR PATCH TD SCH (08:33)
[2018-01-09 16:30] VITALS: BP 115/67
[2018-01-09] MEDS: OLANZapine 10 MG TABLET PO SCH (20:18)
[2018-01-09] MEDS: PRAZOSIN HCL 1 MG CAPSULE PO SCH (20:18)
[2018-01-09] MEDS: MIRTAZAPINE 15 MG TABLET PO SCH (20:18)
[2018-01-10 06:18] VITALS: BP 118/72
[2018-01-10 08:13] VITALS: BP 113/70
[2018-01-10] MEDS: NICOTINE 21 MG/24 HOUR PATCH TD SCH (08:23)
[2018-01-10] MEDS: VENLAFAXINE HCL 75 MG ER CAPSULE PO SCH (08:23)
[2018-01-10] MEDS: OLANZapine 5 MG TABLET PO SCH (08:23)
[2018-01-10] MEDS: PARoxetine HCL 20 MG TABLET PO SCH (08:23)
[2018-01-10 16:15] VITALS: BP 123/72
[2018-01-10 20:14] VITALS: BP 118/68
[2018-01-10] MEDS: PRAZOSIN HCL 1 MG CAPSULE PO SCH (20:14)
[2018-01-10] MEDS: MIRTAZAPINE 15 MG TABLET PO SCH (20:14)
[2018-01-10] MEDS: OLANZapine 10 MG TABLET PO SCH (20:14)
[2018-01-11 05:45] VITALS: BP 123/65
[2018-01-11] MEDS: VENLAFAXINE HCL 75 MG ER CAPSULE PO SCH (08:22)
[2018-01-11] MEDS: OLANZapine 5 MG TABLET PO SCH (08:22)
[2018-01-11] MEDS: PARoxetine HCL 20 MG TABLET PO SCH (08:22)
[2018-01-11] MEDS: NICOTINE 21 MG/24 HOUR PATCH TD SCH (08:23)
[2018-01-11 08:30] VITALS: BP 120/78
[2018-01-11 16:14] VITALS: BP 119/68
[2018-01-11] MEDS: MIRTAZAPINE 15 MG TABLET PO SCH (20:29)
[2018-01-11] MEDS: OLANZapine 10 MG TABLET PO SCH (20:29)
[2018-01-11] MEDS: PRAZOSIN HCL 1 MG CAPSULE PO SCH (20:29)
[2018-01-12 05:54] VITALS: BP 121/68
[2018-01-12] MEDS: OLANZapine 5 MG TABLET PO SCH (08:27)
[2018-01-12] MEDS: VENLAFAXINE HCL 75 MG ER CAPSULE PO SCH (08:27)
[2018-01-12] MEDS: PARoxetine HCL 20 MG TABLET PO SCH (08:27)
[2018-01-12] MEDS: NICOTINE 21 MG/24 HOUR PATCH TD SCH (08:28)
[2018-01-12 08:34] VITALS: BP 123/79
[2018-01-12] MEDS ORDERED: NICO-704 TD (09:46)
[2018-01-12] MEDS ORDERED: OLAN10TA20 PO (10:36)
[2018-01-12] MEDS ORDERED: VENL75CA55 PO (10:36)
[2018-01-12] MEDS ORDERED: PRAZ1 PO (10:36)
[2018-01-12] MEDS ORDERED: MIRT15 PO (10:36)
[2018-01-12] MEDS ORDERED: PARO-37 PO (10:36)
[2018-01-12] MEDS ORDERED: OLAN5TAB27 PO (10:36)
== END 2018-01-12 13:43 | disposition home or self-care (01) | DRG 753 ==
LOC: EMS 11:14 → B2S 19:30
PROVIDERS: ADMIT Psychiatry & Neurology Psychiatry; ATTEND Psychiatry & Neurology Child & Adolescent Psychiatry
DX: F31.64 Bipolar disorder, current episode mixed, severe, with psychotic features (principal); R45.851 Suicidal ideations; I10 Essential (primary) hypertension; M54.9 Dorsalgia, unspecified; G89.29 Other chronic pain; K21.9 Gastro-esophageal reflux disease without esophagitis; F41.9 Anxiety disorder, unspecified; Z63.9 Problem related to primary support group, unspecified; Z59.0 Homelessness; Z88.8 Allergy status to other drugs, medicaments and biological substances; Z79.899 Other long term (current) drug therapy; Z91.5 Personal history of self-harm; Z82.49 Family history of ischemic heart disease and other diseases of the circulatory system; Z28.21 Immunization not carried out because of patient refusal
CPT/HCPCS: 83036; 84439; 84443; 87081; 99285; G0480

== ENCOUNTER 2018-03-05 09:04 | Inpatient (IN) | payer MEDICAID, OTHER ==
[~2018-03-05] VITALS: Ht 162.6 cm; Wt 107.2 kg
[~2018-03-05 09:04] MED LIST changes: +ARIP10TA8 PO; +BUSP10TA23 PO; +LEVO50TA11 PO; -MIRT15 PO; -OLAN10TA3 PO; -OLAN5TAB2 PO; -PARO20TA24 PO; -PRAZ1 PO; -VENL-68 PO; +VENL75CA55 PO
[2018-03-05 10:02] LABS: BASOPHILS % (AUTO) 0.5 % (0.0-2.0); EOSINOPHILS % (AUTO) 0.6 % (1.0-6.0); HEMATOCRIT 43.1 % (36-46); HEMOGLOBIN 14.9 g/dL (12.0-16.0); LYMPHOCYTES # (AUTO) 2.3 K/uL (1.0-4.8); LYMPHOCYTES % (AUTO) 27.2 % (22.0-44.0); MEAN CORPUSCULAR HEMOGLOBIN 30.2 pg (26.0-34.0); MEAN CORPUSCULAR HGB CONC 34.6 G/dL (31.0-37.0); MEAN CORPUSCULAR VOLUME 88 fL (80-100); MONOCYTES # (AUTO) 0.3 K/uL (0.1-1.0); MONOCYTES % (AUTO) 3.2 % (2.0-9.0); NEUTROPHILS # (AUTO) 5.7 K/uL (1.8-7.7); NEUTROPHILS % (AUTO) 68.5 % (40.0-70.0); PLATELET COUNT (AUTO) 262 K/uL (150-450); RED BLOOD CELL COUNT(AUTO) 4.93 MIL/uL (4.00-5.20); RED CELL DISTRIBUTION WIDTH 13.5 % (11.5-14.5)
[2018-03-05] MEDS ORDERED: BUSP10TA23 PO (10:04)
[2018-03-05] MEDS ORDERED: FERR-89 PO (10:04)
[2018-03-05] MEDS ORDERED: ASPI81 PO (10:04)
[2018-03-05] MEDS ORDERED: RANI150T7 PO (10:04)
[2018-03-05] MEDS ORDERED: LEVO112T4 PO (10:04)
[2018-03-05] MEDS ORDERED: ARIP5TAB8 PO (10:04)
[2018-03-05 10:11] LABS: ANION GAP 9 mmol/L (8-16); CALCIUM, TOTAL 9.5 mg/dL (8.8-10.5); CARBON DIOXIDE 28 mmol/L (22-29); CHLORIDE 103 mmol/L (98-107); CREATININE 0.62 mg/dL (0.60-1.30); GLOMERULAR FILTR. RATE CALC > 60 mL/min (>60); GLUCOSE,RANDOM 106 mg/dL (70-110); POTASSIUM 3.8 mmol/L (3.5-5.1); SODIUM SERUM 140 mmol/L (136-145); UREA NITROGEN, BLOOD 12 mg/dL (7-18)
[2018-03-05 10:17] LABS: ALANINE AMINOTRANSFERASE 34 U/L (12-78); ALBUMIN 3.7 g/dL (3.4-5.0); ALKALINE PHOSPHATASE 86 U/L (46-116); ASPARTATE AMINOTRANSFERASE 23 U/L (15-37); BILIRUBIN,TOTAL 0.5 mg/dL (0.1-1.0); TOTAL PROTEIN, SERUM 7.7 g/dL (6.4-8.2)
[2018-03-05 10:21] LABS: AMPHET/METH SCREEN,URINE NEGATIVE (NEGATIVE); BARBITURATE SCREEN, URINE NEGATIVE (NEGATIVE); BENZODIAZEPINES SCREEN,URINE NEGATIVE (NEGATIVE); CANNABINOID SCREEN,URINE NEGATIVE (NEGATIVE); COCAINE SCREEN,URINE NEGATIVE (NEGATIVE); METHADONE SCREEN, URINE NEGATIVE (NEGATIVE); OPIATE SCREEN,URINE NEGATIVE (NEGATIVE)
[2018-03-05 10:23] LABS: APPEARANCE,URINE CLOUDY (CLEAR); BILIRUBIN,URINE NEGATIVE (NEGATIVE); GLUCOSE, URINE (UA) NEGATIVE (NEGATIVE); KETONES,URINE NEGATIVE (NEGATIVE); LEUKOCYTE ESTERASE ,URINE NEGATIVE (NEGATIVE); NITRATE,URINE NEGATIVE (NEGATIVE); OCCULT BLOOD,URINE MODERATE (NEGATIVE); PROTEIN,URINE NEGATIVE (NEGATIVE); UROBILINOGEN,URINE 0.2 mg/dL (<=1.0)
[2018-03-05 10:24] LABS: PHENCYCLIDINE SCREEN,URINE NEGATIVE (NEGATIVE)
[2018-03-05 10:27] LABS: BACTERIA,URINE Few /HPF (None Seen); SQUAMOUS EPITHELIAL CELL,UR Few /LPF (None Seen); WBC,URINE 0-2 /HPF (0-5)
[2018-03-05 10:28] LABS: AMORPHOUS SEDIMENT,UR Moderate /LPF (None Seen)
[2018-03-05] MEDS ORDERED: HALOPERIDOL 5 MG TABLET PO PRN (11:30)
[2018-03-05] MEDS ORDERED: LORazepam 2 MG TABLET PO PRN (11:30)
[2018-03-05] MEDS ORDERED: ZOLPIDEM TARTRATE 10 MG TABLET PO PRN (11:30)
[2018-03-05] MEDS: BusPIRone HCL 10 MG TABLET PO SCH (16:00)
[2018-03-05] MEDS ORDERED: ACETAMINOPHEN 500 MG TABLET PO ONE (16:15)
[2018-03-05] MEDS ORDERED: LOPERAMIDE HCL 2 MG CAPSULE PO PRN (21:30)
[2018-03-05] MEDS ORDERED: ALBUTEROL SULFATE HFA 90 MCG/PUFF 8 GM INHALER IH PRN (21:30)
[2018-03-05] MEDS ORDERED: CloNIDine HCL 0.1 MG TABLET PO PRN (21:30)
[2018-03-05] MEDS ORDERED: IBUPROFEN 400 MG TABLET PO PRN (21:30)
[2018-03-05] MEDS ORDERED: MAG HYDROX/AL HYDROX/SIMETH ES 30 ML SUSPENSION UDCUP PO PRN (21:30)
[2018-03-05] MEDS ORDERED: ACETAMINOPHEN 325 MG TABLET PO PRN (21:30)
[2018-03-05] MEDS ORDERED: ONDANSETRON HCL 4 MG TABLET PO PRN (21:30)
[2018-03-05] MEDS ORDERED: MAGNESIUM HYDROXIDE SUSPENSION 30 ML UDCUP PO PRN (21:30)
[2018-03-05] MEDS ORDERED: DOCUSATE SODIUM 100 MG CAPSULE PO PRN (21:30)
[2018-03-05] MEDS ORDERED: PETROLATUM,WHITE 71 GM JELLY TP PRN (21:30)
[2018-03-06] MEDS ORDERED: PNEUMOCOCCAL VACCINE POLYVALENT 0.5 ML VIAL [PPSV23] IM ONE (03:15)
[2018-03-06 08:46] VITALS: BP 144/77
[2018-03-06] MEDS: NICOTINE 14 MG/24 HOUR PATCH TD SCH (09:00)
[2018-03-06 09:38] LABS: HEMOGLOBIN A1C 5.9 % (4.5-6.2)
[2018-03-06] MEDS: ARIPiprazole 10 MG TABLET PO SCH (09:49)
[2018-03-06] MEDS: VENLAFAXINE HCL 75 MG ER CAPSULE PO SCH (09:50)
[2018-03-06] MEDS: BusPIRone HCL 10 MG TABLET PO SCH ×3 (09:50→17:32)
[2018-03-06 10:03] LABS: CHOL/HDL RATIO 4.5 (3.9-5.7); FREE T4 (FREE THYROXINE) 0.95 ng/dL (0.76-1.46); THYROID STIMULATING HORMONE 0.82 uIU/mL (0.36-3.74)
[2018-03-06] MEDS: FLUoxetine HCL 20 MG CAPSULE PO SCH (10:12)
[2018-03-06 12:00] VITALS: BP 122/78
[2018-03-06 16:13] VITALS: BP 139/80
[2018-03-06] MEDS: FERROUS SULFATE 325 MG EC TABLET PO SCH (17:32)
[2018-03-06] MEDS: RANITIDINE HCL 150 MG TABLET PO SCH (17:32)
[2018-03-07] MEDS: LEVOTHYROXINE SODIUM 112 MCG TABLET PO SCH (06:15)
[2018-03-07] MEDS: FERROUS SULFATE 325 MG EC TABLET PO SCH ×3 (06:16→16:44)
[2018-03-07 06:39] VITALS: BP 138/84
[2018-03-07 08:34] VITALS: BP 124/86
[2018-03-07] MEDS: FLUoxetine HCL 20 MG CAPSULE PO SCH (09:06)
[2018-03-07] MEDS: VENLAFAXINE HCL 75 MG ER CAPSULE PO SCH (09:06)
[2018-03-07] MEDS: ARIPiprazole 10 MG TABLET PO SCH (09:06)
[2018-03-07] MEDS: RANITIDINE HCL 150 MG TABLET PO SCH ×2 (09:06→16:44)
[2018-03-07] MEDS: ASPIRIN 81 MG CHEWABLE TABLET PO SCH (09:07)
[2018-03-07] MEDS: BusPIRone HCL 10 MG TABLET PO SCH ×3 (09:07→16:44)
[2018-03-07] MEDS: NICOTINE 14 MG/24 HOUR PATCH TD SCH (09:25)
[2018-03-07 14:41] VITALS: BP 136/60
[2018-03-07 16:38] VITALS: BP 124/67
[2018-03-08 00:30] VITALS: BP 130/68
[2018-03-08] MEDS: LEVOTHYROXINE SODIUM 112 MCG TABLET PO SCH (06:42)
[2018-03-08] MEDS: FERROUS SULFATE 325 MG EC TABLET PO SCH ×3 (06:42→16:53)
[2018-03-08 08:37] VITALS: BP 124/71
[2018-03-08] MEDS: NICOTINE 14 MG/24 HOUR PATCH TD SCH (09:39)
[2018-03-08] MEDS: RANITIDINE HCL 150 MG TABLET PO SCH ×2 (09:41→16:53)
[2018-03-08] MEDS: FLUoxetine HCL 20 MG CAPSULE PO SCH (09:41)
[2018-03-08] MEDS: ASPIRIN 81 MG CHEWABLE TABLET PO SCH (09:41)
[2018-03-08] MEDS: BusPIRone HCL 10 MG TABLET PO SCH ×3 (09:41→16:53)
[2018-03-08] MEDS: ARIPiprazole 10 MG TABLET PO SCH (09:41)
[2018-03-08] MEDS: VENLAFAXINE HCL 75 MG ER CAPSULE PO SCH (09:41)
[2018-03-08 13:00] VITALS: BP 120/62
[2018-03-08 16:28] VITALS: BP 108/74
[2018-03-09] MEDS: LEVOTHYROXINE SODIUM 112 MCG TABLET PO SCH (06:23)
[2018-03-09] MEDS: FERROUS SULFATE 325 MG EC TABLET PO SCH ×3 (06:55→16:34)
[2018-03-09 07:19] VITALS: BP 130/89
[2018-03-09 08:16] VITALS: BP 122/72
[2018-03-09] MEDS: RANITIDINE HCL 150 MG TABLET PO SCH ×2 (08:53→16:34)
[2018-03-09] MEDS: ASPIRIN 81 MG CHEWABLE TABLET PO SCH (08:53)
[2018-03-09] MEDS: ARIPiprazole 10 MG TABLET PO SCH (08:53)
[2018-03-09] MEDS: FLUoxetine HCL 20 MG CAPSULE PO SCH (08:53)
[2018-03-09] MEDS: BusPIRone HCL 10 MG TABLET PO SCH ×3 (08:53→16:34)
[2018-03-09] MEDS: VENLAFAXINE HCL 75 MG ER CAPSULE PO SCH (08:54)
[2018-03-09] MEDS: NICOTINE 14 MG/24 HOUR PATCH TD SCH (08:56)
[2018-03-09 15:23] VITALS: BP 125/76
[2018-03-09 16:15] VITALS: BP 133/99
[2018-03-10 00:23] VITALS: BP 132/76
[2018-03-10] MEDS: LEVOTHYROXINE SODIUM 112 MCG TABLET PO SCH (06:33)
[2018-03-10] MEDS: FERROUS SULFATE 325 MG EC TABLET PO SCH ×3 (06:38→16:17)
[2018-03-10 06:40] VITALS: BP 120/79
[2018-03-10 08:26] VITALS: BP 114/76
[2018-03-10] MEDS: ASPIRIN 81 MG CHEWABLE TABLET PO SCH (08:48)
[2018-03-10] MEDS: VENLAFAXINE HCL 75 MG ER CAPSULE PO SCH (08:48)
[2018-03-10] MEDS: RANITIDINE HCL 150 MG TABLET PO SCH ×2 (08:48→16:17)
[2018-03-10] MEDS: ARIPiprazole 10 MG TABLET PO SCH (08:48)
[2018-03-10] MEDS: FLUoxetine HCL 20 MG CAPSULE PO SCH (08:48)
[2018-03-10] MEDS: BusPIRone HCL 10 MG TABLET PO SCH ×3 (08:48→16:17)
[2018-03-10] MEDS: NICOTINE 14 MG/24 HOUR PATCH TD SCH (08:52)
[2018-03-10 12:05] VITALS: BP 115/64
[2018-03-10 16:13] VITALS: BP 134/72
[2018-03-10 16:14] VITALS: BP 109/73
[2018-03-11 06:26] VITALS: BP 107/72
[2018-03-11] MEDS: LEVOTHYROXINE SODIUM 112 MCG TABLET PO SCH (06:28)
[2018-03-11] MEDS: FERROUS SULFATE 325 MG EC TABLET PO SCH ×3 (06:29→17:21)
[2018-03-11] MEDS: VENLAFAXINE HCL 75 MG ER CAPSULE PO SCH (08:53)
[2018-03-11] MEDS: NICOTINE 14 MG/24 HOUR PATCH TD SCH (08:53)
[2018-03-11] MEDS: RANITIDINE HCL 150 MG TABLET PO SCH ×2 (08:53→17:21)
[2018-03-11] MEDS: FLUoxetine HCL 20 MG CAPSULE PO SCH (08:53)
[2018-03-11] MEDS: ASPIRIN 81 MG CHEWABLE TABLET PO SCH (08:53)
[2018-03-11] MEDS: BusPIRone HCL 10 MG TABLET PO SCH ×3 (08:53→17:20)
[2018-03-11] MEDS: ARIPiprazole 10 MG TABLET PO SCH (08:53)
[2018-03-11 08:54] VITALS: BP 134/65
[2018-03-11 16:16] VITALS: BP 130/68
[2018-03-12 01:15] VITALS: BP 119/63
[2018-03-12] MEDS: LEVOTHYROXINE SODIUM 112 MCG TABLET PO SCH (06:06)
[2018-03-12] MEDS: FERROUS SULFATE 325 MG EC TABLET PO SCH ×3 (06:33→17:02)
[2018-03-12 09:17] VITALS: BP 113/72
[2018-03-12] MEDS: VENLAFAXINE HCL 75 MG ER CAPSULE PO SCH (09:22)
[2018-03-12] MEDS: NICOTINE 14 MG/24 HOUR PATCH TD SCH (09:23)
[2018-03-12] MEDS: ARIPiprazole 10 MG TABLET PO SCH (09:23)
[2018-03-12] MEDS: RANITIDINE HCL 150 MG TABLET PO SCH ×2 (09:23→16:10)
[2018-03-12] MEDS: BusPIRone HCL 10 MG TABLET PO SCH ×3 (09:23→16:10)
[2018-03-12] MEDS: ASPIRIN 81 MG CHEWABLE TABLET PO SCH (09:24)
[2018-03-12] MEDS: FLUoxetine HCL 20 MG CAPSULE PO SCH (09:25)
[2018-03-12 16:13] VITALS: BP 106/73
[2018-03-13 06:20] VITALS: BP 110/74
[2018-03-13] MEDS: LEVOTHYROXINE SODIUM 112 MCG TABLET PO SCH (06:36)
[2018-03-13] MEDS: FERROUS SULFATE 325 MG EC TABLET PO SCH ×3 (06:36→16:04)
[2018-03-13 08:23] VITALS: BP 121/64
[2018-03-13] MEDS: RANITIDINE HCL 150 MG TABLET PO SCH ×2 (09:31→16:04)
[2018-03-13] MEDS: ARIPiprazole 10 MG TABLET PO SCH (09:31)
[2018-03-13] MEDS: FLUoxetine HCL 20 MG CAPSULE PO SCH (09:31)
[2018-03-13] MEDS: ASPIRIN 81 MG CHEWABLE TABLET PO SCH (09:32)
[2018-03-13] MEDS: VENLAFAXINE HCL 75 MG ER CAPSULE PO SCH (09:32)
[2018-03-13] MEDS: BusPIRone HCL 10 MG TABLET PO SCH ×3 (09:32→16:26)
[2018-03-13] MEDS: NICOTINE 14 MG/24 HOUR PATCH TD SCH (09:37)
[2018-03-13 17:56] VITALS: BP 111/72
[2018-03-14 02:15] VITALS: BP 121/66
[2018-03-14] MEDS: FERROUS SULFATE 325 MG EC TABLET PO SCH ×3 (06:41→17:00)
[2018-03-14] MEDS: LEVOTHYROXINE SODIUM 112 MCG TABLET PO SCH (06:41)
[2018-03-14 08:39] VITALS: BP 122/74
[2018-03-14] MEDS: FLUoxetine HCL 20 MG CAPSULE PO SCH (09:43)
[2018-03-14] MEDS: ASPIRIN 81 MG CHEWABLE TABLET PO SCH (09:43)
[2018-03-14] MEDS: BusPIRone HCL 10 MG TABLET PO SCH ×3 (09:43→16:35)
[2018-03-14] MEDS: RANITIDINE HCL 150 MG TABLET PO SCH ×2 (09:43→16:34)
[2018-03-14] MEDS: ARIPiprazole 10 MG TABLET PO SCH (09:43)
[2018-03-14] MEDS: VENLAFAXINE HCL 75 MG ER CAPSULE PO SCH (09:43)
[2018-03-14] MEDS: NICOTINE 14 MG/24 HOUR PATCH TD SCH (09:44)
[2018-03-14 16:06] VITALS: BP 116/86
[2018-03-15 05:54] VITALS: BP 116/84
[2018-03-15] MEDS: LEVOTHYROXINE SODIUM 112 MCG TABLET PO SCH (06:38)
[2018-03-15] MEDS: FERROUS SULFATE 325 MG EC TABLET PO SCH ×3 (06:38→16:57)
[2018-03-15 08:15] VITALS: BP 115/69
[2018-03-15] MEDS: ARIPiprazole 10 MG TABLET PO SCH (09:45)
[2018-03-15] MEDS: RANITIDINE HCL 150 MG TABLET PO SCH ×2 (09:45→16:22)
[2018-03-15] MEDS: FLUoxetine HCL 20 MG CAPSULE PO SCH (09:45)
[2018-03-15] MEDS: NICOTINE 14 MG/24 HOUR PATCH TD SCH (09:45)
[2018-03-15] MEDS: BusPIRone HCL 10 MG TABLET PO SCH ×3 (09:45→16:22)
[2018-03-15] MEDS: ASPIRIN 81 MG CHEWABLE TABLET PO SCH (09:46)
[2018-03-15] MEDS: VENLAFAXINE HCL 75 MG ER CAPSULE PO SCH (09:46)
[2018-03-15 20:31] VITALS: BP 119/74
[2018-03-16] MEDS: FERROUS SULFATE 325 MG EC TABLET PO SCH ×2 (06:06→11:19)
[2018-03-16] MEDS: LEVOTHYROXINE SODIUM 112 MCG TABLET PO SCH (06:06)
[2018-03-16 06:28] VITALS: BP 121/68
[2018-03-16] MEDS: ARIPiprazole 10 MG TABLET PO SCH (08:55)
[2018-03-16] MEDS: ASPIRIN 81 MG CHEWABLE TABLET PO SCH (08:55)
[2018-03-16] MEDS: VENLAFAXINE HCL 75 MG ER CAPSULE PO SCH (08:55)
[2018-03-16] MEDS: NICOTINE 14 MG/24 HOUR PATCH TD SCH (08:56)
[2018-03-16] MEDS: RANITIDINE HCL 150 MG TABLET PO SCH (08:56)
[2018-03-16] MEDS: BusPIRone HCL 10 MG TABLET PO SCH ×2 (08:56→12:43)
[2018-03-16] MEDS: FLUoxetine HCL 20 MG CAPSULE PO SCH (08:56)
[2018-03-16 09:20] VITALS: BP 113/65
[2018-03-16] MEDS ORDERED: ARIP10TA8 PO (12:27)
[2018-03-16] MEDS ORDERED: BUSP10TA23 PO (12:27)
[2018-03-16] MEDS ORDERED: FLUO-191 PO (12:27)
== END 2018-03-16 15:19 | disposition home or self-care (01) | DRG 753 ==
LOC: EMS 09:05 → B3A 18:28 → B2S 03-11 20:40
PROVIDERS: ADMIT Psychiatry & Neurology Psychiatry; ATTEND Psychiatry & Neurology Psychiatry
DX: F31.4 Bipolar disorder, current episode depressed, severe, without psychotic features (principal); R45.851 Suicidal ideations; I10 Essential (primary) hypertension; E03.9 Hypothyroidism, unspecified; D64.9 Anemia, unspecified; F17.200 Nicotine dependence, unspecified, uncomplicated; F43.10 Post-traumatic stress disorder, unspecified; J45.909 Unspecified asthma, uncomplicated; K21.9 Gastro-esophageal reflux disease without esophagitis; M19.90 Unspecified osteoarthritis, unspecified site; Z79.899 Other long term (current) drug therapy; Z91.5 Personal history of self-harm; Z88.8 Allergy status to other drugs, medicaments and biological substances; Z28.21 Immunization not carried out because of patient refusal
CPT/HCPCS: 83036; 84439; 84443; 99285; G0480

== ENCOUNTER 2018-05-05 13:31 | Inpatient (IN) | payer MEDICAID ==
[~2018-05-05] VITALS: Ht 162.6 cm; Wt 108.0 kg
[~2018-05-05 13:31] MED LIST changes: +ASPI81 PO; +FERR-89 PO; +FLUO-191 PO; +LEVO112T4 PO; -LEVO50TA11 PO; +RANI150T7 PO
[2018-05-05] MEDS ORDERED: HALOPERIDOL 5 MG TABLET PO PRN (14:00)
[2018-05-05] MEDS ORDERED: ZOLPIDEM TARTRATE 10 MG TABLET PO PRN (14:00)
[2018-05-05 14:19] VITALS: BP 108/65
[2018-05-05] MEDS ORDERED: PNEUMOCOCCAL VACCINE POLYVALENT 0.5 ML VIAL [PPSV23] IM ONE (15:00)
[2018-05-05] MEDS: LORazepam 2 MG TABLET PO PRN (15:48)
[2018-05-05] MEDS ORDERED: CloNIDine HCL 0.1 MG TABLET PO PRN (16:30)
[2018-05-05] MEDS ORDERED: DOCUSATE SODIUM 100 MG CAPSULE PO PRN (16:30)
[2018-05-05] MEDS ORDERED: MAGNESIUM HYDROXIDE SUSPENSION 30 ML UDCUP PO PRN (16:30)
[2018-05-05] MEDS ORDERED: PETROLATUM,WHITE 71 GM JELLY TP PRN (16:30)
[2018-05-05] MEDS ORDERED: MAG HYDROX/AL HYDROX/SIMETH ES 30 ML SUSPENSION UDCUP PO PRN (16:30)
[2018-05-05] MEDS ORDERED: LOPERAMIDE HCL 2 MG CAPSULE PO PRN (16:30)
[2018-05-05] MEDS ORDERED: ACETAMINOPHEN 325 MG TABLET PO PRN (16:30)
[2018-05-05] MEDS ORDERED: NICOTINE 21 MG/24 HOUR PATCH TD ONE (16:30)
[2018-05-05 17:46] VITALS: BP 135/87
[2018-05-06 06:54] VITALS: BP 112/80
[2018-05-06 08:19] VITALS: BP 115/72
[2018-05-06 08:38] LABS: BASOPHILS % (AUTO) 0.4 % (0.0-2.0); EOSINOPHILS % (AUTO) 1.3 % (1.0-6.0); HEMATOCRIT 44.9 % (36-46); HEMOGLOBIN 14.9 g/dL (12.0-16.0); LYMPHOCYTES # (AUTO) 2.1 K/uL (1.0-4.8); LYMPHOCYTES % (AUTO) 21.2 % (22.0-44.0); MEAN CORPUSCULAR HEMOGLOBIN 29.9 pg (26.0-34.0); MEAN CORPUSCULAR HGB CONC 33.1 G/dL (31.0-37.0); MEAN CORPUSCULAR VOLUME 90 fL (80-100); MONOCYTES # (AUTO) 0.3 K/uL (0.1-1.0); MONOCYTES % (AUTO) 3.3 % (2.0-9.0); NEUTROPHILS # (AUTO) 7.3 K/uL (1.8-7.7); NEUTROPHILS % (AUTO) 73.8 % (40.0-70.0); PLATELET COUNT (AUTO) 263 K/uL (150-450); RED BLOOD CELL COUNT(AUTO) 4.98 MIL/uL (4.00-5.20); RED CELL DISTRIBUTION WIDTH 13.4 % (11.5-14.5)
[2018-05-06 09:10] LABS: ALANINE AMINOTRANSFERASE 23 U/L (12-78); ALBUMIN 3.4 g/dL (3.4-5.0); ALKALINE PHOSPHATASE 95 U/L (46-116); ANION GAP 5 mmol/L (8-16); ASPARTATE AMINOTRANSFERASE 16 U/L (15-37); BILIRUBIN,TOTAL 0.4 mg/dL (0.1-1.0); CALCIUM, TOTAL 9.2 mg/dL (8.8-10.5); CARBON DIOXIDE 32 mmol/L (22-29); CHLORIDE 105 mmol/L (98-107); CHOL/HDL RATIO 4.7 (3.9-5.7); CHOLESTEROL 205 mg/dL (131-200); CREATININE 0.84 mg/dL (0.60-1.30); FREE T4 (FREE THYROXINE) 0.61 ng/dL (0.76-1.46); GLOMERULAR FILTR. RATE CALC > 60 mL/min (>60); GLUCOSE,RANDOM 96 mg/dL (70-110); HCG,QUANTITATIVE 1 mIU/mL (0-6); HDL CHOLESTEROL 44 mg/dL (40-60); LDL CHOL (CALC.) 133 mg/dL (0-130); POTASSIUM 4.2 mmol/L (3.5-5.1); SODIUM SERUM 142 mmol/L (136-145); THYROID STIMULATING HORMONE 4.25 uIU/mL (0.36-3.74); TOTAL PROTEIN, SERUM 7.4 g/dL (6.4-8.2); TRIGLYCERIDES 142 mg/dL (15-150); UREA NITROGEN, BLOOD 11 mg/dL (7-18)
[2018-05-06] MEDS: LORazepam 2 MG TABLET PO PRN (11:50)
[2018-05-06] MEDS: BusPIRone HCL 10 MG TABLET PO SCH ×2 (12:31→16:16)
[2018-05-06 16:02] VITALS: BP 123/73
[2018-05-07 06:37] VITALS: BP 121/68
[2018-05-07] MEDS: FERROUS SULFATE 325 MG EC TABLET PO SCH ×3 (06:50→17:20)
[2018-05-07] MEDS: LEVOTHYROXINE SODIUM 112 MCG TABLET PO SCH (06:50)
[2018-05-07 07:51] LABS: APPEARANCE,URINE CLOUDY (CLEAR); BILIRUBIN,URINE NEGATIVE (NEGATIVE); GLUCOSE, URINE (UA) NEGATIVE (NEGATIVE); KETONES,URINE NEGATIVE (NEGATIVE); LEUKOCYTE ESTERASE ,URINE SMALL (NEGATIVE); NITRATE,URINE POSITIVE (NEGATIVE); OCCULT BLOOD,URINE MODERATE (NEGATIVE); PROTEIN,URINE NEGATIVE (NEGATIVE); UROBILINOGEN,URINE 0.2 mg/dL (<=1.0)
[2018-05-07 07:54] LABS: BACTERIA,URINE Many /HPF (None Seen)
[2018-05-07 07:55] LABS: AMPHET/METH SCREEN,URINE NEGATIVE (NEGATIVE); BARBITURATE SCREEN, URINE NEGATIVE (NEGATIVE); BENZODIAZEPINES SCREEN,URINE NEGATIVE (NEGATIVE); CANNABINOID SCREEN,URINE NEGATIVE (NEGATIVE); COCAINE SCREEN,URINE NEGATIVE (NEGATIVE); METHADONE SCREEN, URINE NEGATIVE (NEGATIVE); OPIATE SCREEN,URINE NEGATIVE (NEGATIVE); SQUAMOUS EPITHELIAL CELL,UR Moderate /LPF (None Seen)
[2018-05-07 07:56] LABS: PHENCYCLIDINE SCREEN,URINE NEGATIVE (NEGATIVE)
[2018-05-07 08:50] VITALS: BP 104/68
[2018-05-07] MEDS: VENLAFAXINE HCL 75 MG ER CAPSULE PO SCH (09:33)
[2018-05-07] MEDS: BusPIRone HCL 10 MG TABLET PO SCH ×3 (09:34→17:20)
[2018-05-07] MEDS: ARIPiprazole 15 MG TABLET PO SCH (09:34)
[2018-05-07] MEDS: ASPIRIN 81 MG CHEWABLE TABLET PO SCH (09:34)
[2018-05-07] MEDS: RANITIDINE HCL 150 MG TABLET PO SCH ×2 (09:35→17:20)
[2018-05-07] MEDS: NICOTINE 21 MG/24 HOUR PATCH TD SCH (11:38)
[2018-05-07 16:31] VITALS: BP 112/69
[2018-05-07] MEDS ORDERED: CIPROFLOXACIN HCL 250 MG TABLET PO SCH (17:00)
[2018-05-07] MEDS ORDERED: CIPROFLOXACIN HCL 500 MG TABLET PO SCH (21:30)
[2018-05-08 05:32] VITALS: BP 120/81
[2018-05-08] MEDS: LEVOTHYROXINE SODIUM 112 MCG TABLET PO SCH (06:48)
[2018-05-08] MEDS: FERROUS SULFATE 325 MG EC TABLET PO SCH ×3 (06:48→18:34)
[2018-05-08] MEDS: ASPIRIN 81 MG CHEWABLE TABLET PO SCH (08:23)
[2018-05-08] MEDS: RANITIDINE HCL 150 MG TABLET PO SCH ×2 (08:23→16:10)
[2018-05-08] MEDS: ARIPiprazole 15 MG TABLET PO SCH (08:23)
[2018-05-08] MEDS: VENLAFAXINE HCL 75 MG ER CAPSULE PO SCH (08:23)
[2018-05-08] MEDS: CIPROFLOXACIN HCL 250 MG TABLET PO SCH ×2 (08:23→16:10)
[2018-05-08] MEDS: NICOTINE 21 MG/24 HOUR PATCH TD SCH (08:23)
[2018-05-08] MEDS: BusPIRone HCL 10 MG TABLET PO SCH ×3 (08:24→16:10)
[2018-05-08 09:16] VITALS: BP 122/60
[2018-05-08 16:08] VITALS: BP 109/73
[2018-05-09 01:07] VITALS: BP 119/63
[2018-05-09] MEDS: FERROUS SULFATE 325 MG EC TABLET PO SCH ×3 (07:02→17:41)
[2018-05-09] MEDS: LEVOTHYROXINE SODIUM 112 MCG TABLET PO SCH (07:02)
[2018-05-09 08:53] VITALS: BP 112/64
[2018-05-09] MEDS: ARIPiprazole 15 MG TABLET PO SCH (10:00)
[2018-05-09] MEDS: ASPIRIN 81 MG CHEWABLE TABLET PO SCH (10:00)
[2018-05-09] MEDS: VENLAFAXINE HCL 75 MG ER CAPSULE PO SCH (10:00)
[2018-05-09] MEDS: NICOTINE 21 MG/24 HOUR PATCH TD SCH (10:00)
[2018-05-09] MEDS: BusPIRone HCL 10 MG TABLET PO SCH ×3 (10:01→16:40)
[2018-05-09] MEDS: RANITIDINE HCL 150 MG TABLET PO SCH ×2 (10:01→16:39)
[2018-05-09] MEDS: CIPROFLOXACIN HCL 250 MG TABLET PO SCH ×2 (10:02→16:40)
[2018-05-09 16:13] VITALS: BP 109/71
[2018-05-10 01:48] VITALS: BP 112/65
[2018-05-10] MEDS: FERROUS SULFATE 325 MG EC TABLET PO SCH ×3 (06:53→17:40)
[2018-05-10] MEDS: LEVOTHYROXINE SODIUM 112 MCG TABLET PO SCH (06:53)
[2018-05-10 08:52] VITALS: BP 120/71
[2018-05-10] MEDS: BusPIRone HCL 10 MG TABLET PO SCH ×3 (09:33→16:11)
[2018-05-10] MEDS: RANITIDINE HCL 150 MG TABLET PO SCH ×2 (09:33→16:11)
[2018-05-10] MEDS: ARIPiprazole 15 MG TABLET PO SCH (09:33)
[2018-05-10] MEDS: VENLAFAXINE HCL 75 MG ER CAPSULE PO SCH (09:33)
[2018-05-10] MEDS: CIPROFLOXACIN HCL 250 MG TABLET PO SCH ×2 (09:34→16:11)
[2018-05-10] MEDS: ASPIRIN 81 MG CHEWABLE TABLET PO SCH (09:34)
[2018-05-10] MEDS: NICOTINE 21 MG/24 HOUR PATCH TD SCH (09:36)
[2018-05-10 16:51] VITALS: BP 109/70
[2018-05-11] MEDS ORDERED: VENL-67 PO (01:32)
[2018-05-11] MEDS ORDERED: CIP250 PO (01:32)
[2018-05-11] MEDS ORDERED: RANI150T7 PO (01:32)
[2018-05-11] MEDS ORDERED: FERR-89 PO (01:32)
[2018-05-11] MEDS ORDERED: ASPI81 PO (01:32)
[2018-05-11] MEDS ORDERED: LEVO125T95 PO (01:32)
[2018-05-11] MEDS ORDERED: BUSP10TA23 PO (01:32)
[2018-05-11] MEDS ORDERED: ARIP15TA2 PO (01:32)
[2018-05-11 05:09] VITALS: BP 106/65
[2018-05-11] MEDS: LEVOTHYROXINE SODIUM 112 MCG TABLET PO SCH (06:52)
[2018-05-11] MEDS: FERROUS SULFATE 325 MG EC TABLET PO SCH (06:52)
== END 2018-05-11 07:29 | disposition home or self-care (01) | DRG 753 ==
LOC: B2S 14:04
PROVIDERS: ADMIT Psychiatry & Neurology Psychiatry; ATTEND Psychiatry & Neurology Psychiatry
DX: F31.4 Bipolar disorder, current episode depressed, severe, without psychotic features (principal); R45.851 Suicidal ideations; D64.9 Anemia, unspecified; E03.9 Hypothyroidism, unspecified; K21.9 Gastro-esophageal reflux disease without esophagitis; G47.30 Sleep apnea, unspecified; M19.90 Unspecified osteoarthritis, unspecified site; F41.9 Anxiety disorder, unspecified; J44.9 Chronic obstructive pulmonary disease, unspecified; R45.87 Impulsiveness; E78.5 Hyperlipidemia, unspecified; F17.200 Nicotine dependence, unspecified, uncomplicated; Z71.6 Tobacco abuse counseling; Z91.5 Personal history of self-harm; Z88.8 Allergy status to other drugs, medicaments and biological substances
CPT/HCPCS: 80307; 83036; 84436; 84439; 84443; 87086

== ENCOUNTER 2018-05-17 15:16 | Inpatient (IN) | payer MEDICAID, OTHER ==
[~2018-05-17] VITALS: Ht 162.6 cm; Wt 107.1 kg
[~2018-05-17 15:16] MED LIST changes: -ARIP10TA8 PO; +ARIP15TA2 PO; +CIP250 PO; -FLUO-191 PO; -LEVO112T4 PO; +LEVO125T95 PO; +VENL-67 PO; -VENL75CA55 PO
[2018-05-17 15:44] LABS: GLUCOSE,POINT OF CARE 109 MG/DL (70-110)
[2018-05-17 15:58] LABS: BASOPHILS % (AUTO) 0.7 % (0.0-2.0); EOSINOPHILS % (AUTO) 1.5 % (1.0-6.0); HEMATOCRIT 45.9 % (36-46); HEMOGLOBIN 15.5 g/dL (12.0-16.0); LYMPHOCYTES # (AUTO) 3.5 K/uL (1.0-4.8); LYMPHOCYTES % (AUTO) 30.4 % (22.0-44.0); MEAN CORPUSCULAR HGB CONC 33.9 G/dL (31.0-37.0); MEAN CORPUSCULAR VOLUME 89 fL (80-100); MONOCYTES # (AUTO) 0.5 K/uL (0.1-1.0); MONOCYTES % (AUTO) 4.6 % (2.0-9.0); NEUTROPHILS # (AUTO) 7.3 K/uL (1.8-7.7); NEUTROPHILS % (AUTO) 62.8 % (40.0-70.0); PLATELET COUNT (AUTO) 272 K/uL (150-450); RED BLOOD CELL COUNT(AUTO) 5.18 MIL/uL (4.00-5.20); RED CELL DISTRIBUTION WIDTH 13.1 % (11.5-14.5)
[2018-05-17 16:02] LABS: APPEARANCE,URINE CLOUDY (CLEAR); BILIRUBIN,URINE NEGATIVE (NEGATIVE); GLUCOSE, URINE (UA) NEGATIVE (NEGATIVE); KETONES,URINE NEGATIVE (NEGATIVE); LEUKOCYTE ESTERASE ,URINE NEGATIVE (NEGATIVE); NITRATE,URINE NEGATIVE (NEGATIVE); OCCULT BLOOD,URINE MODERATE (NEGATIVE); PROTEIN,URINE NEGATIVE (NEGATIVE); UROBILINOGEN,URINE 0.2 mg/dL (<=1.0)
[2018-05-17 16:04] LABS: ANION GAP 10 mmol/L (8-16); CALCIUM, TOTAL 9.4 mg/dL (8.8-10.5); CARBON DIOXIDE 27 mmol/L (22-29); CHLORIDE 104 mmol/L (98-107); CREATININE 0.85 mg/dL (0.60-1.30); GLOMERULAR FILTR. RATE CALC > 60 mL/min (>60); GLUCOSE,RANDOM 108 mg/dL (70-110); POTASSIUM 3.8 mmol/L (3.5-5.1); SODIUM SERUM 141 mmol/L (136-145); UREA NITROGEN, BLOOD 12 mg/dL (7-18)
[2018-05-17 16:07] LABS: AMPHET/METH SCREEN,URINE NEGATIVE (NEGATIVE); BARBITURATE SCREEN, URINE NEGATIVE (NEGATIVE); BENZODIAZEPINES SCREEN,URINE NEGATIVE (NEGATIVE); CANNABINOID SCREEN,URINE NEGATIVE (NEGATIVE); COCAINE SCREEN,URINE NEGATIVE (NEGATIVE); METHADONE SCREEN, URINE NEGATIVE (NEGATIVE); OPIATE SCREEN,URINE NEGATIVE (NEGATIVE); PHENCYCLIDINE SCREEN,URINE NEGATIVE (NEGATIVE)
[2018-05-17] MEDS ORDERED: OLANZapine 5 MG RAPDIS TABLET PO PRN (16:15)
[2018-05-17] MEDS ORDERED: ZOLPIDEM TARTRATE 10 MG TABLET PO PRN (16:15)
[2018-05-17 16:18] LABS: ALANINE AMINOTRANSFERASE 28 U/L (12-78); ALBUMIN 3.6 g/dL (3.4-5.0); ALKALINE PHOSPHATASE 115 U/L (46-116); ASPARTATE AMINOTRANSFERASE 22 U/L (15-37); BILIRUBIN,TOTAL 0.2 mg/dL (0.1-1.0); THYROID STIMULATING HORMONE 1.74 uIU/mL (0.36-3.74); TOTAL PROTEIN, SERUM 7.6 g/dL (6.4-8.2)
[2018-05-17 16:24] LABS: AMORPHOUS SEDIMENT,UR Few /LPF (None Seen); BACTERIA,URINE Few /HPF (None Seen); SQUAMOUS EPITHELIAL CELL,UR Moderate /LPF (None Seen); WBC,URINE 0-2 /HPF (0-5)
[2018-05-17] MEDS ORDERED: IBUPROFEN 400 MG TABLET PO PRN ×2 (16:30→19:30)
[2018-05-17] MEDS ORDERED: ACETAMINOPHEN 325 MG TABLET PO PRN ×2 (16:30→19:30)
[2018-05-17] MEDS ORDERED: MAGNESIUM HYDROXIDE SUSPENSION 30 ML UDCUP PO PRN (19:30)
[2018-05-17] MEDS ORDERED: NICOTINE 14 MG/24 HOUR PATCH TD PRN (19:30)
[2018-05-17] MEDS ORDERED: LOPERAMIDE HCL 2 MG CAPSULE PO PRN (19:30)
[2018-05-17] MEDS ORDERED: PETROLATUM,WHITE 71 GM JELLY TP PRN (19:30)
[2018-05-17] MEDS ORDERED: MAG HYDROX/AL HYDROX/SIMETH ES 30 ML SUSPENSION UDCUP PO PRN (19:30)
[2018-05-17] MEDS ORDERED: ALBUTEROL SULFATE HFA 90 MCG/PUFF 8 GM INHALER IH PRN (19:30)
[2018-05-17] MEDS ORDERED: CloNIDine HCL 0.1 MG TABLET PO PRN (19:30)
[2018-05-17] MEDS ORDERED: ASPIRIN 81 MG CHEWABLE TABLET PO ONE (19:30)
[2018-05-17] MEDS ORDERED: DOCUSATE SODIUM 100 MG CAPSULE PO PRN (19:30)
[2018-05-17] MEDS ORDERED: ONDANSETRON HCL 4 MG TABLET PO PRN (19:30)
[2018-05-17] MEDS ORDERED: GuaiFENesin/D-METHORPHAN [SUGAR-FREE] 200-20MG/10 ML SYRUP UDCUP PO PRN (19:30)
[2018-05-17 20:04] VITALS: BP 134/74
[2018-05-17] MEDS ORDERED: PNEUMOCOCCAL VACCINE POLYVALENT 0.5 ML VIAL [PPSV23] IM ONE (20:15)
[2018-05-18 06:24] LABS: BASOPHILS % (AUTO) 0.5 % (0.0-2.0); EOSINOPHILS % (AUTO) 1.9 % (1.0-6.0); HEMATOCRIT 42.2 % (36-46); HEMOGLOBIN 14.7 g/dL (12.0-16.0); LYMPHOCYTES # (AUTO) 2.9 K/uL (1.0-4.8); LYMPHOCYTES % (AUTO) 30.5 % (22.0-44.0); MEAN CORPUSCULAR HEMOGLOBIN 30.4 pg (26.0-34.0); MEAN CORPUSCULAR HGB CONC 34.8 G/dL (31.0-37.0); MEAN CORPUSCULAR VOLUME 87 fL (80-100); MONOCYTES # (AUTO) 0.5 K/uL (0.1-1.0); MONOCYTES % (AUTO) 4.9 % (2.0-9.0); NEUTROPHILS # (AUTO) 5.9 K/uL (1.8-7.7); NEUTROPHILS % (AUTO) 62.2 % (40.0-70.0); PLATELET COUNT (AUTO) 252 K/uL (150-450); RED BLOOD CELL COUNT(AUTO) 4.83 MIL/uL (4.00-5.20); RED CELL DISTRIBUTION WIDTH 13.2 % (11.5-14.5)
[2018-05-18 06:59] LABS: HEMOGLOBIN A1C 5.8 % (4.5-6.2)
[2018-05-18] MEDS: FERROUS SULFATE 325 MG EC TABLET PO SCH ×3 (07:06→17:03)
[2018-05-18] MEDS: LEVOTHYROXINE SODIUM 112 MCG TABLET PO SCH (07:06)
[2018-05-18 07:32] LABS: ALANINE AMINOTRANSFERASE 27 U/L (12-78); ALBUMIN 3.3 g/dL (3.4-5.0); ALKALINE PHOSPHATASE 97 U/L (46-116); ANION GAP 7 mmol/L (8-16); ASPARTATE AMINOTRANSFERASE 17 U/L (15-37); BILIRUBIN,TOTAL 0.4 mg/dL (0.1-1.0); CALCIUM, TOTAL 8.9 mg/dL (8.8-10.5); CARBON DIOXIDE 28 mmol/L (22-29); CHLORIDE 105 mmol/L (98-107); CHOL/HDL RATIO 4.1 (3.9-5.7); CHOLESTEROL 174 mg/dL (131-200); GLOMERULAR FILTR. RATE CALC > 60 mL/min (>60); GLUCOSE,RANDOM 97 mg/dL (70-110); HDL CHOLESTEROL 42 mg/dL (40-60); LDL CHOL (CALC.) 105 mg/dL (0-130); POTASSIUM 3.9 mmol/L (3.5-5.1); SODIUM SERUM 140 mmol/L (136-145); THYROID STIMULATING HORMONE 1.92 uIU/mL (0.36-3.74); TRIGLYCERIDES 137 mg/dL (15-150); UREA NITROGEN, BLOOD 13 mg/dL (7-18)
[2018-05-18 08:45] VITALS: BP 137/70
[2018-05-18] MEDS: RANITIDINE HCL 150 MG TABLET PO SCH ×2 (09:13→17:03)
[2018-05-18] MEDS: LORazepam 2 MG TABLET PO PRN ×3 (09:13→20:37)
[2018-05-18] MEDS: ASPIRIN 81 MG EC TABLET PO SCH (09:13)
[2018-05-18] MEDS: NICOTINE 21 MG/24 HOUR PATCH TD SCH (09:15)
[2018-05-18] MEDS: BusPIRone HCL 10 MG TABLET PO SCH (17:00)
[2018-05-18 22:59] VITALS: BP 137/85
[2018-05-19] MEDS: FERROUS SULFATE 325 MG EC TABLET PO SCH ×3 (06:48→17:14)
[2018-05-19] MEDS: LEVOTHYROXINE SODIUM 112 MCG TABLET PO SCH (06:48)
[2018-05-19] MEDS ORDERED: LEVOTHYROXINE SODIUM 112 MCG TABLET PO SCH (07:00)
[2018-05-19] MEDS ORDERED: FERROUS SULFATE 325 MG EC TABLET PO SCH (07:30)
[2018-05-19] MEDS ORDERED: RANITIDINE HCL 150 MG TABLET PO SCH (09:00)
[2018-05-19] MEDS ORDERED: ASPIRIN 81 MG CHEWABLE TABLET PO SCH (09:00)
[2018-05-19 09:56] VITALS: BP 125/83
[2018-05-19] MEDS: NICOTINE 21 MG/24 HOUR PATCH TD SCH (11:13)
[2018-05-19] MEDS: ASPIRIN 81 MG EC TABLET PO SCH (11:13)
[2018-05-19] MEDS: VENLAFAXINE HCL 75 MG ER CAPSULE PO SCH (11:13)
[2018-05-19] MEDS: ARIPiprazole 15 MG TABLET PO SCH (11:14)
[2018-05-19] MEDS: BusPIRone HCL 10 MG TABLET PO SCH ×3 (11:14→17:14)
[2018-05-19] MEDS: RANITIDINE HCL 150 MG TABLET PO SCH ×2 (11:14→17:14)
[2018-05-19] MEDS: LORazepam 2 MG TABLET PO PRN (11:16)
[2018-05-19 16:52] VITALS: BP 127/75
[2018-05-20] MEDS: LEVOTHYROXINE SODIUM 112 MCG TABLET PO SCH (07:02)
[2018-05-20] MEDS: FERROUS SULFATE 325 MG EC TABLET PO SCH ×3 (07:02→17:00)
[2018-05-20 08:40] VITALS: BP 125/78
[2018-05-20] MEDS: ASPIRIN 81 MG EC TABLET PO SCH (10:20)
[2018-05-20] MEDS: RANITIDINE HCL 150 MG TABLET PO SCH ×2 (10:21→17:01)
[2018-05-20] MEDS: ARIPiprazole 15 MG TABLET PO SCH (10:21)
[2018-05-20] MEDS: VENLAFAXINE HCL 75 MG ER CAPSULE PO SCH (10:21)
[2018-05-20] MEDS: BusPIRone HCL 10 MG TABLET PO SCH ×3 (10:21→17:01)
[2018-05-20] MEDS: NICOTINE 21 MG/24 HOUR PATCH TD SCH (10:26)
[2018-05-20] MEDS: LORazepam 2 MG TABLET PO PRN ×2 (10:49→22:24)
[2018-05-20 19:15] VITALS: BP 101/58
[2018-05-21] MEDS: LEVOTHYROXINE SODIUM 112 MCG TABLET PO SCH (06:59)
[2018-05-21] MEDS: FERROUS SULFATE 325 MG EC TABLET PO SCH ×3 (06:59→16:58)
[2018-05-21] MEDS: LORazepam 2 MG TABLET PO PRN ×2 (09:22→16:58)
[2018-05-21] MEDS: VENLAFAXINE HCL 75 MG ER CAPSULE PO SCH (09:23)
[2018-05-21] MEDS: RANITIDINE HCL 150 MG TABLET PO SCH ×2 (09:23→16:59)
[2018-05-21] MEDS: ASPIRIN 81 MG EC TABLET PO SCH (09:23)
[2018-05-21] MEDS: BusPIRone HCL 10 MG TABLET PO SCH ×3 (09:23→16:59)
[2018-05-21] MEDS: ARIPiprazole 15 MG TABLET PO SCH (09:23)
[2018-05-21] MEDS: NICOTINE 21 MG/24 HOUR PATCH TD SCH (09:26)
[2018-05-21 10:12] VITALS: BP 139/89
[2018-05-21 22:01] VITALS: BP 114/73
[2018-05-22] MEDS: FERROUS SULFATE 325 MG EC TABLET PO SCH ×3 (06:50→17:03)
[2018-05-22] MEDS: LEVOTHYROXINE SODIUM 112 MCG TABLET PO SCH (06:50)
[2018-05-22 08:46] VITALS: BP 114/57
[2018-05-22] MEDS: ARIPiprazole 15 MG TABLET PO SCH (09:47)
[2018-05-22] MEDS: BusPIRone HCL 10 MG TABLET PO SCH ×3 (09:47→17:02)
[2018-05-22] MEDS: ASPIRIN 81 MG EC TABLET PO SCH (09:48)
[2018-05-22] MEDS: VENLAFAXINE HCL 75 MG ER CAPSULE PO SCH (09:48)
[2018-05-22] MEDS: RANITIDINE HCL 150 MG TABLET PO SCH ×2 (09:48→17:02)
[2018-05-22] MEDS: NICOTINE 21 MG/24 HOUR PATCH TD SCH (09:49)
[2018-05-22] MEDS: LORazepam 2 MG TABLET PO PRN (09:51)
[2018-05-22 17:12] VITALS: BP 118/59
[2018-05-23] MEDS: LEVOTHYROXINE SODIUM 112 MCG TABLET PO SCH (06:55)
[2018-05-23] MEDS: FERROUS SULFATE 325 MG EC TABLET PO SCH ×3 (06:55→16:33)
[2018-05-23 08:11] VITALS: BP 130/61
[2018-05-23] MEDS: ARIPiprazole 15 MG TABLET PO SCH (09:34)
[2018-05-23] MEDS: BusPIRone HCL 10 MG TABLET PO SCH ×3 (09:34→16:33)
[2018-05-23] MEDS: RANITIDINE HCL 150 MG TABLET PO SCH ×2 (09:35→16:33)
[2018-05-23] MEDS: VENLAFAXINE HCL 75 MG ER CAPSULE PO SCH (09:35)
[2018-05-23] MEDS: ASPIRIN 81 MG EC TABLET PO SCH (09:35)
[2018-05-23] MEDS: NICOTINE 21 MG/24 HOUR PATCH TD SCH (10:20)
[2018-05-23] MEDS ORDERED: LEVO112T4 PO (13:25)
[2018-05-23 16:30] VITALS: BP 131/74
[2018-05-24] MEDS: LEVOTHYROXINE SODIUM 112 MCG TABLET PO SCH (06:31)
[2018-05-24] MEDS: FERROUS SULFATE 325 MG EC TABLET PO SCH ×3 (06:31→16:45)
[2018-05-24 08:22] VITALS: BP 138/67
[2018-05-24] MEDS: BusPIRone HCL 10 MG TABLET PO SCH ×3 (10:14→16:45)
[2018-05-24] MEDS: ARIPiprazole 15 MG TABLET PO SCH (10:14)
[2018-05-24] MEDS: ASPIRIN 81 MG EC TABLET PO SCH (10:17)
[2018-05-24] MEDS: VENLAFAXINE HCL 75 MG ER CAPSULE PO SCH (10:17)
[2018-05-24] MEDS: LamoTRIgine 25 MG TABLET PO SCH (10:19)
[2018-05-24] MEDS: LORazepam 2 MG TABLET PO PRN (10:19)
[2018-05-24] MEDS: RANITIDINE HCL 150 MG TABLET PO SCH ×2 (10:19→16:45)
[2018-05-24] MEDS: NICOTINE 21 MG/24 HOUR PATCH TD SCH (10:22)
[2018-05-24 16:45] VITALS: BP 107/71
[2018-05-25] MEDS: LEVOTHYROXINE SODIUM 112 MCG TABLET PO SCH (06:51)
[2018-05-25] MEDS: FERROUS SULFATE 325 MG EC TABLET PO SCH ×3 (06:52→16:45)
[2018-05-25 08:22] VITALS: BP 129/78
[2018-05-25] MEDS: RANITIDINE HCL 150 MG TABLET PO SCH ×2 (09:33→16:45)
[2018-05-25] MEDS: ARIPiprazole 15 MG TABLET PO SCH (09:33)
[2018-05-25] MEDS: BusPIRone HCL 10 MG TABLET PO SCH ×3 (09:33→16:45)
[2018-05-25] MEDS: VENLAFAXINE HCL 75 MG ER CAPSULE PO SCH (09:36)
[2018-05-25] MEDS: LamoTRIgine 25 MG TABLET PO SCH (09:36)
[2018-05-25] MEDS: ASPIRIN 81 MG EC TABLET PO SCH (09:36)
[2018-05-25] MEDS: NICOTINE 21 MG/24 HOUR PATCH TD SCH (13:17)
[2018-05-25 19:22] VITALS: BP 131/83
[2018-05-26] MEDS: LEVOTHYROXINE SODIUM 112 MCG TABLET PO SCH (06:52)
[2018-05-26] MEDS: FERROUS SULFATE 325 MG EC TABLET PO SCH ×3 (06:52→16:42)
[2018-05-26 08:11] VITALS: BP 152/84
[2018-05-26] MEDS ORDERED: VENLAFAXINE HCL 150 MG ER CAPSULE PO SCH (09:00)
[2018-05-26] MEDS ORDERED: PARoxetine HCL 20 MG TABLET PO SCH (09:00)
[2018-05-26] MEDS: ASPIRIN 81 MG EC TABLET PO SCH (09:05)
[2018-05-26] MEDS: ARIPiprazole 15 MG TABLET PO SCH (09:05)
[2018-05-26] MEDS: LamoTRIgine 25 MG TABLET PO SCH (09:05)
[2018-05-26] MEDS: RANITIDINE HCL 150 MG TABLET PO SCH ×2 (09:05→16:42)
[2018-05-26] MEDS: BusPIRone HCL 10 MG TABLET PO SCH ×3 (09:06→16:42)
[2018-05-26] MEDS: NICOTINE 21 MG/24 HOUR PATCH TD SCH (09:07)
[2018-05-26 17:02] VITALS: BP 103/69
[2018-05-27] MEDS: LEVOTHYROXINE SODIUM 112 MCG TABLET PO SCH (06:46)
[2018-05-27] MEDS: FERROUS SULFATE 325 MG EC TABLET PO SCH ×3 (06:46→17:16)
[2018-05-27 08:30] VITALS: BP 130/67
[2018-05-27] MEDS: ARIPiprazole 15 MG TABLET PO SCH (09:47)
[2018-05-27] MEDS: ASPIRIN 81 MG EC TABLET PO SCH (09:48)
[2018-05-27] MEDS: BusPIRone HCL 10 MG TABLET PO SCH ×3 (09:48→16:24)
[2018-05-27] MEDS: VENLAFAXINE HCL 75 MG ER CAPSULE PO SCH (09:50)
[2018-05-27] MEDS: LamoTRIgine 25 MG TABLET PO SCH (09:50)
[2018-05-27] MEDS: PARoxetine HCL 20 MG TABLET PO SCH (09:51)
[2018-05-27] MEDS: RANITIDINE HCL 150 MG TABLET PO SCH ×2 (09:51→16:23)
[2018-05-27] MEDS: NICOTINE 21 MG/24 HOUR PATCH TD SCH (09:54)
[2018-05-27 16:54] VITALS: BP 137/94
[2018-05-28] MEDS: LEVOTHYROXINE SODIUM 112 MCG TABLET PO SCH (06:38)
[2018-05-28] MEDS: FERROUS SULFATE 325 MG EC TABLET PO SCH ×3 (06:40→16:32)
[2018-05-28 08:30] VITALS: BP 146/81
[2018-05-28] MEDS: ARIPiprazole 15 MG TABLET PO SCH (09:12)
[2018-05-28] MEDS: BusPIRone HCL 10 MG TABLET PO SCH ×3 (09:13→16:32)
[2018-05-28] MEDS: VENLAFAXINE HCL 75 MG ER CAPSULE PO SCH (09:13)
[2018-05-28] MEDS: ASPIRIN 81 MG EC TABLET PO SCH (09:13)
[2018-05-28] MEDS: LamoTRIgine 25 MG TABLET PO SCH (09:13)
[2018-05-28] MEDS: RANITIDINE HCL 150 MG TABLET PO SCH ×2 (09:14→16:32)
[2018-05-28] MEDS: PARoxetine HCL 20 MG TABLET PO SCH (09:14)
[2018-05-28] MEDS: NICOTINE 21 MG/24 HOUR PATCH TD SCH (09:16)
[2018-05-28 16:30] VITALS: BP 117/70
[2018-05-29] MEDS: LEVOTHYROXINE SODIUM 112 MCG TABLET PO SCH (07:07)
[2018-05-29] MEDS: FERROUS SULFATE 325 MG EC TABLET PO SCH ×3 (07:07→16:21)
[2018-05-29 08:30] VITALS: BP_SYST 129
[2018-05-29] MEDS: ARIPiprazole 15 MG TABLET PO SCH (08:42)
[2018-05-29] MEDS: LamoTRIgine 25 MG TABLET PO SCH (08:42)
[2018-05-29] MEDS: BusPIRone HCL 10 MG TABLET PO SCH ×3 (08:42→16:21)
[2018-05-29] MEDS: VENLAFAXINE HCL 75 MG ER CAPSULE PO SCH (08:42)
[2018-05-29] MEDS: ASPIRIN 81 MG EC TABLET PO SCH (08:43)
[2018-05-29] MEDS: PARoxetine HCL 20 MG TABLET PO SCH (08:43)
[2018-05-29] MEDS: RANITIDINE HCL 150 MG TABLET PO SCH ×2 (08:43→16:21)
[2018-05-29] MEDS: NICOTINE 21 MG/24 HOUR PATCH TD SCH (08:44)
[2018-05-29 18:00] VITALS: BP 118/67
[2018-05-30] MEDS: LEVOTHYROXINE SODIUM 112 MCG TABLET PO SCH (06:37)
[2018-05-30] MEDS: FERROUS SULFATE 325 MG EC TABLET PO SCH ×3 (06:38→16:30)
[2018-05-30] MEDS: RANITIDINE HCL 150 MG TABLET PO SCH ×2 (09:25→16:30)
[2018-05-30] MEDS: BusPIRone HCL 10 MG TABLET PO SCH ×3 (09:25→16:30)
[2018-05-30] MEDS: ARIPiprazole 15 MG TABLET PO SCH (09:26)
[2018-05-30] MEDS: LamoTRIgine 25 MG TABLET PO SCH (09:27)
[2018-05-30 09:28] VITALS: BP 131/76
[2018-05-30] MEDS: PARoxetine HCL 20 MG TABLET PO SCH (09:28)
[2018-05-30] MEDS: ASPIRIN 81 MG EC TABLET PO SCH (09:28)
[2018-05-30] MEDS: NICOTINE 21 MG/24 HOUR PATCH TD SCH (09:29)
[2018-05-30 17:18] VITALS: BP 144/71
[2018-05-31] MEDS: FERROUS SULFATE 325 MG EC TABLET PO SCH ×3 (06:52→13:06)
[2018-05-31] MEDS: LEVOTHYROXINE SODIUM 112 MCG TABLET PO SCH (06:52)
[2018-05-31] MEDS ORDERED: LAMO25 PO (08:53)
[2018-05-31] MEDS ORDERED: PARO20TA24 PO (08:55)
[2018-05-31] MEDS ORDERED: ASPI-1182 PO (08:56)
[2018-05-31] MEDS: BusPIRone HCL 10 MG TABLET PO SCH ×2 (09:43→13:06)
[2018-05-31] MEDS: ARIPiprazole 15 MG TABLET PO SCH (09:44)
[2018-05-31] MEDS: ASPIRIN 81 MG EC TABLET PO SCH (09:45)
[2018-05-31] MEDS: LamoTRIgine 25 MG TABLET PO SCH (09:45)
[2018-05-31] MEDS: RANITIDINE HCL 150 MG TABLET PO SCH (09:46)
[2018-05-31] MEDS: PARoxetine HCL 20 MG TABLET PO SCH (09:46)
[2018-05-31] MEDS: NICOTINE 21 MG/24 HOUR PATCH TD SCH (09:48)
[2018-05-31 11:04] VITALS: BP 144/76
== END 2018-05-31 14:30 | disposition home or self-care (01) | DRG 753 ==
LOC: EMS 15:17 → 3EI 17:41
PROVIDERS: ADMIT Psychiatry & Neurology Psychiatry; ATTEND Psychiatry & Neurology Psychiatry
DX: F31.4 Bipolar disorder, current episode depressed, severe, without psychotic features (principal); R45.851 Suicidal ideations; Z91.19 Patient's noncompliance with other medical treatment and regimen; E03.9 Hypothyroidism, unspecified; F17.210 Nicotine dependence, cigarettes, uncomplicated; F43.10 Post-traumatic stress disorder, unspecified; I10 Essential (primary) hypertension; J45.909 Unspecified asthma, uncomplicated; F41.9 Anxiety disorder, unspecified; K21.9 Gastro-esophageal reflux disease without esophagitis; R53.83 Other fatigue; Z71.6 Tobacco abuse counseling; D64.9 Anemia, unspecified; M19.90 Unspecified osteoarthritis, unspecified site; R45.87 Impulsiveness; Z91.5 Personal history of self-harm; Z88.6 Allergy status to analgesic agent; Z88.8 Allergy status to other drugs, medicaments and biological substances; Z79.82 Long term (current) use of aspirin; Z79.899 Other long term (current) drug therapy
CPT/HCPCS: 83036; 84443; 87081; 99406; G0480

== ENCOUNTER 2018-07-25 13:04 | Inpatient (IN) | payer MEDICAID, OTHER ==
[~2018-07-25] VITALS: Ht 162.6 cm; Wt 109.3 kg
[~2018-07-25 13:04] MED LIST changes: +ASPI-1182 PO; -ASPI81 PO; -CIP250 PO; +LAMO25 PO; +LEVO112T4 PO; -LEVO125T95 PO; +PARO20TA24 PO; -VENL-67 PO
[2018-07-25] MEDS ORDERED: CYCL10 PO (15:22)
[2018-07-25] MEDS ORDERED: PRED20 PO (15:22)
[2018-07-25 15:44] LABS: BASOPHILS % (AUTO) 0.3 % (0.0-2.0); EOSINOPHILS % (AUTO) 0.1 % (1.0-6.0); HEMATOCRIT 44.5 % (36-46); LYMPHOCYTES # (AUTO) 0.6 K/uL (1.0-4.8); LYMPHOCYTES % (AUTO) 5.8 % (22.0-44.0); MEAN CORPUSCULAR HEMOGLOBIN 30.4 pg (26.0-34.0); MEAN CORPUSCULAR HGB CONC 33.7 G/dL (31.0-37.0); MEAN CORPUSCULAR VOLUME 90 fL (80-100); MONOCYTES % (AUTO) 0.5 % (2.0-9.0); NEUTROPHILS # (AUTO) 9.4 K/uL (1.8-7.7); NEUTROPHILS % (AUTO) 93.3 % (40.0-70.0); PLATELET COUNT (AUTO) 247 K/uL (150-450); RED BLOOD CELL COUNT(AUTO) 4.94 MIL/uL (4.00-5.20); RED CELL DISTRIBUTION WIDTH 13.7 % (11.5-14.5)
[2018-07-25 15:55] LABS: ANION GAP 7 mmol/L (8-16); CALCIUM, TOTAL 8.9 mg/dL (8.8-10.5); CARBON DIOXIDE 29 mmol/L (22-29); CHLORIDE 103 mmol/L (98-107); GLOMERULAR FILTR. RATE CALC > 60 mL/min (>60); GLUCOSE,RANDOM 180 mg/dL (70-110); POTASSIUM 3.9 mmol/L (3.5-5.1); SODIUM SERUM 139 mmol/L (136-145); UREA NITROGEN, BLOOD 15 mg/dL (7-18)
[2018-07-25 16:01] LABS: ALANINE AMINOTRANSFERASE 29 U/L (12-78); ALBUMIN 3.9 g/dL (3.4-5.0); ALKALINE PHOSPHATASE 84 U/L (46-116); ASPARTATE AMINOTRANSFERASE 23 U/L (15-37); BILIRUBIN,TOTAL 0.3 mg/dL (0.1-1.0); TOTAL PROTEIN, SERUM 7.5 g/dL (6.4-8.2)
[2018-07-25 16:05] LABS: PLATELET MORPHOLOGY COMMENT GIANT PLTS PRESENT
[2018-07-25] MEDS ORDERED: HALOPERIDOL 5 MG TABLET PO PRN (16:45)
[2018-07-25] MEDS ORDERED: LORazepam 2 MG TABLET PO PRN (16:45)
[2018-07-25] MEDS ORDERED: ZOLPIDEM TARTRATE 10 MG TABLET PO PRN (16:45)
[2018-07-25 17:00] LABS: AMPHET/METH SCREEN,URINE NEGATIVE (NEGATIVE); BARBITURATE SCREEN, URINE NEGATIVE (NEGATIVE); BENZODIAZEPINES SCREEN,URINE NEGATIVE (NEGATIVE); CANNABINOID SCREEN,URINE NEGATIVE (NEGATIVE); COCAINE SCREEN,URINE NEGATIVE (NEGATIVE); METHADONE SCREEN, URINE NEGATIVE (NEGATIVE); OPIATE SCREEN,URINE NEGATIVE (NEGATIVE)
[2018-07-25 17:01] LABS: PHENCYCLIDINE SCREEN,URINE NEGATIVE (NEGATIVE)
[2018-07-25] MEDS ORDERED: QUEtiapine FUMARATE 100 MG TABLET PO ONE (17:30)
[2018-07-25 20:50] LABS: GLUCOMETER DEV NAME(LOC) BV2X.; GLUCOSE,POINT OF CARE 177 MG/DL (70-110)
[2018-07-25] MEDS ORDERED: PNEUMOCOCCAL VACCINE POLYVALENT 0.5 ML VIAL [PPSV23] IM ONE (21:30)
[2018-07-25] MEDS ORDERED: ONDANSETRON HCL 4 MG TABLET PO PRN (21:45)
[2018-07-25] MEDS ORDERED: MAGNESIUM HYDROXIDE SUSPENSION 30 ML UDCUP PO PRN (21:45)
[2018-07-25] MEDS ORDERED: DOCUSATE SODIUM 100 MG CAPSULE PO PRN (21:45)
[2018-07-25] MEDS ORDERED: LOPERAMIDE HCL 2 MG CAPSULE PO PRN (21:45)
[2018-07-25] MEDS ORDERED: ALBUTEROL SULFATE HFA 90 MCG/PUFF 8 GM INHALER IH PRN (21:45)
[2018-07-25] MEDS ORDERED: NICOTINE 14 MG/24 HOUR PATCH TD PRN (21:45)
[2018-07-25] MEDS ORDERED: IBUPROFEN 400 MG TABLET PO PRN (21:45)
[2018-07-25] MEDS ORDERED: GuaiFENesin/D-METHORPHAN [SUGAR-FREE] 200-20MG/10 ML SYRUP UDCUP PO PRN (21:45)
[2018-07-25] MEDS ORDERED: MAG HYDROX/AL HYDROX/SIMETH ES 30 ML SUSPENSION UDCUP PO PRN (21:45)
[2018-07-25] MEDS ORDERED: CloNIDine HCL 0.1 MG TABLET PO PRN (21:45)
[2018-07-25] MEDS ORDERED: PETROLATUM,WHITE 71 GM JELLY TP PRN (21:45)
[2018-07-26 03:13] VITALS: BP 107/63
[2018-07-26] MEDS: LEVOTHYROXINE SODIUM 112 MCG TABLET PO SCH (06:59)
[2018-07-26] MEDS: FERROUS SULFATE 325 MG EC TABLET PO SCH ×3 (06:59→16:47)
[2018-07-26 08:29] VITALS: BP 135/75
[2018-07-26] MEDS: RANITIDINE HCL 150 MG TABLET PO SCH ×2 (08:43→16:55)
[2018-07-26] MEDS: CYCLOBENZAPRINE HCL 10 MG TABLET PO SCH ×3 (08:43→16:48)
[2018-07-26] MEDS: NICOTINE 21 MG/24 HOUR PATCH TD SCH (08:43)
[2018-07-26] MEDS: ASPIRIN 81 MG EC TABLET PO SCH (08:43)
[2018-07-26] MEDS: PredniSONE 10 MG TABLET PO SCH (08:44)
[2018-07-26 08:49] LABS: BASOPHILS % (AUTO) 0.2 % (0.0-2.0); EOSINOPHILS % (AUTO) 0.4 % (1.0-6.0); HEMATOCRIT 41.8 % (36-46); HEMOGLOBIN 13.9 g/dL (12.0-16.0); LYMPHOCYTES # (AUTO) 3.6 K/uL (1.0-4.8); LYMPHOCYTES % (AUTO) 31.9 % (22.0-44.0); MEAN CORPUSCULAR HEMOGLOBIN 30.1 pg (26.0-34.0); MEAN CORPUSCULAR HGB CONC 33.2 G/dL (31.0-37.0); MEAN CORPUSCULAR VOLUME 91 fL (80-100); MONOCYTES # (AUTO) 0.6 K/uL (0.1-1.0); MONOCYTES % (AUTO) 4.9 % (2.0-9.0); NEUTROPHILS # (AUTO) 7.1 K/uL (1.8-7.7); NEUTROPHILS % (AUTO) 62.6 % (40.0-70.0); PLATELET COUNT (AUTO) 242 K/uL (150-450); RED BLOOD CELL COUNT(AUTO) 4.61 MIL/uL (4.00-5.20); RED CELL DISTRIBUTION WIDTH 13.6 % (11.5-14.5)
[2018-07-26 09:35] LABS: ALANINE AMINOTRANSFERASE 24 U/L (12-78); ALBUMIN 3.3 g/dL (3.4-5.0); ALKALINE PHOSPHATASE 71 U/L (46-116); ANION GAP 5 mmol/L (8-16); ASPARTATE AMINOTRANSFERASE 19 U/L (15-37); BILIRUBIN,TOTAL 0.3 mg/dL (0.1-1.0); CALCIUM, TOTAL 8.7 mg/dL (8.8-10.5); CARBON DIOXIDE 30 mmol/L (22-29); CHLORIDE 106 mmol/L (98-107); CHOL/HDL RATIO 4.1 (3.9-5.7); CHOLESTEROL 184 mg/dL (131-200); CREATININE 0.73 mg/dL (0.60-1.30); GLOMERULAR FILTR. RATE CALC > 60 mL/min (>60); GLUCOSE,RANDOM 86 mg/dL (70-110); HDL CHOLESTEROL 45 mg/dL (40-60); LDL CHOL (CALC.) 123 mg/dL (0-130); POTASSIUM 4.1 mmol/L (3.5-5.1); SODIUM SERUM 141 mmol/L (136-145); THYROID STIMULATING HORMONE 0.72 uIU/mL (0.36-3.74); TOTAL PROTEIN, SERUM 6.6 g/dL (6.4-8.2); TRIGLYCERIDES 78 mg/dL (15-150); UREA NITROGEN, BLOOD 16 mg/dL (7-18)
[2018-07-26] MEDS: ARIPiprazole 15 MG TABLET PO SCH (11:55)
[2018-07-26] MEDS: LamoTRIgine 25 MG TABLET PO SCH (11:55)
[2018-07-26] MEDS: PARoxetine HCL 20 MG TABLET PO SCH (11:55)
[2018-07-26] MEDS: BusPIRone HCL 10 MG TABLET PO SCH ×2 (12:44→16:46)
[2018-07-26 16:00] VITALS: BP 117/69
[2018-07-26 20:40] VITALS: BP 113/65
[2018-07-26] MEDS: ACETAMINOPHEN 325 MG TABLET PO PRN (20:44)
[2018-07-27 03:15] VITALS: BP 131/86
[2018-07-27] MEDS: LEVOTHYROXINE SODIUM 112 MCG TABLET PO SCH (06:35)
[2018-07-27] MEDS: FERROUS SULFATE 325 MG EC TABLET PO SCH ×3 (06:58→16:16)
[2018-07-27 08:22] VITALS: BP 112/61
[2018-07-27] MEDS: ARIPiprazole 15 MG TABLET PO SCH (08:53)
[2018-07-27] MEDS: NICOTINE 21 MG/24 HOUR PATCH TD SCH (08:53)
[2018-07-27] MEDS: PARoxetine HCL 20 MG TABLET PO SCH (08:53)
[2018-07-27] MEDS: LamoTRIgine 25 MG TABLET PO SCH (08:53)
[2018-07-27] MEDS: PredniSONE 10 MG TABLET PO SCH (08:54)
[2018-07-27] MEDS: BusPIRone HCL 10 MG TABLET PO SCH ×3 (08:54→16:17)
[2018-07-27] MEDS: ASPIRIN 81 MG EC TABLET PO SCH (08:54)
[2018-07-27] MEDS: RANITIDINE HCL 150 MG TABLET PO SCH ×2 (08:54→16:16)
[2018-07-27] MEDS: CYCLOBENZAPRINE HCL 10 MG TABLET PO SCH ×3 (08:54→16:17)
[2018-07-27 16:06] VITALS: BP 113/65
[2018-07-28 04:41] VITALS: BP 116/67
[2018-07-28] MEDS: FERROUS SULFATE 325 MG EC TABLET PO SCH ×3 (06:02→16:09)
[2018-07-28] MEDS: LEVOTHYROXINE SODIUM 112 MCG TABLET PO SCH (06:02)
[2018-07-28 08:41] VITALS: BP 142/76
[2018-07-28] MEDS: BusPIRone HCL 10 MG TABLET PO SCH ×3 (09:17→16:09)
[2018-07-28] MEDS: RANITIDINE HCL 150 MG TABLET PO SCH ×2 (09:18→16:09)
[2018-07-28] MEDS: ARIPiprazole 15 MG TABLET PO SCH (09:19)
[2018-07-28] MEDS: CYCLOBENZAPRINE HCL 10 MG TABLET PO SCH ×3 (09:19→16:09)
[2018-07-28] MEDS: PredniSONE 10 MG TABLET PO SCH (09:19)
[2018-07-28] MEDS: LamoTRIgine 25 MG TABLET PO SCH (09:19)
[2018-07-28] MEDS: PARoxetine HCL 20 MG TABLET PO SCH (09:20)
[2018-07-28] MEDS: NICOTINE 21 MG/24 HOUR PATCH TD SCH (09:20)
[2018-07-28] MEDS: ASPIRIN 81 MG EC TABLET PO SCH (09:21)
[2018-07-28 13:25] VITALS: BP 118/61
[2018-07-28] MEDS: ACETAMINOPHEN 325 MG TABLET PO PRN (13:28)
[2018-07-28 16:03] VITALS: BP 129/85
[2018-07-28] MEDS: MIRTAZAPINE 15 MG TABLET PO SCH (20:13)
[2018-07-29] VITALS: BP 103/54
[2018-07-29] MEDS: LEVOTHYROXINE SODIUM 112 MCG TABLET PO SCH (06:39)
[2018-07-29] MEDS: FERROUS SULFATE 325 MG EC TABLET PO SCH ×3 (06:39→16:07)
[2018-07-29 08:38] LABS: BASOPHILS % (AUTO) 0.4 % (0.0-2.0); EOSINOPHILS % (AUTO) 1.4 % (1.0-6.0); HEMATOCRIT 45.1 % (36-46); HEMOGLOBIN 15.2 g/dL (12.0-16.0); LYMPHOCYTES # (AUTO) 4.8 K/uL (1.0-4.8); LYMPHOCYTES % (AUTO) 38.4 % (22.0-44.0); MEAN CORPUSCULAR HEMOGLOBIN 30.7 pg (26.0-34.0); MEAN CORPUSCULAR HGB CONC 33.8 G/dL (31.0-37.0); MEAN CORPUSCULAR VOLUME 91 fL (80-100); MONOCYTES # (AUTO) 0.6 K/uL (0.1-1.0); MONOCYTES % (AUTO) 4.6 % (2.0-9.0); NEUTROPHILS % (AUTO) 55.2 % (40.0-70.0); PLATELET COUNT (AUTO) 239 K/uL (150-450); RED BLOOD CELL COUNT(AUTO) 4.95 MIL/uL (4.00-5.20); RED CELL DISTRIBUTION WIDTH 13.5 % (11.5-14.5)
[2018-07-29 08:45] VITALS: BP 124/60
[2018-07-29] MEDS: ASPIRIN 81 MG EC TABLET PO SCH (08:53)
[2018-07-29] MEDS: BusPIRone HCL 10 MG TABLET PO SCH ×3 (08:53→16:06)
[2018-07-29] MEDS: ARIPiprazole 15 MG TABLET PO SCH (08:53)
[2018-07-29] MEDS: CYCLOBENZAPRINE HCL 10 MG TABLET PO SCH ×3 (08:54→16:07)
[2018-07-29] MEDS: PredniSONE 10 MG TABLET PO SCH (08:54)
[2018-07-29] MEDS: LamoTRIgine 25 MG TABLET PO SCH (08:54)
[2018-07-29] MEDS: RANITIDINE HCL 150 MG TABLET PO SCH ×2 (08:54→16:06)
[2018-07-29] MEDS: PARoxetine HCL 20 MG TABLET PO SCH (08:54)
[2018-07-29] MEDS: NICOTINE 21 MG/24 HOUR PATCH TD SCH (08:59)
[2018-07-29] MEDS: ACETAMINOPHEN 325 MG TABLET PO PRN (12:45)
[2018-07-29 16:00] VITALS: BP 115/56
[2018-07-29] MEDS: MIRTAZAPINE 15 MG TABLET PO SCH (20:35)
[2018-07-30 04:24] VITALS: BP 140/86
[2018-07-30] MEDS: FERROUS SULFATE 325 MG EC TABLET PO SCH ×3 (06:51→16:49)
[2018-07-30] MEDS: LEVOTHYROXINE SODIUM 112 MCG TABLET PO SCH (06:51)
[2018-07-30 08:14] VITALS: BP 117/75
[2018-07-30] MEDS: CYCLOBENZAPRINE HCL 10 MG TABLET PO SCH ×3 (08:59→16:49)
[2018-07-30] MEDS: LamoTRIgine 25 MG TABLET PO SCH (08:59)
[2018-07-30] MEDS: ARIPiprazole 15 MG TABLET PO SCH (08:59)
[2018-07-30] MEDS: PARoxetine HCL 20 MG TABLET PO SCH (08:59)
[2018-07-30] MEDS: PredniSONE 10 MG TABLET PO SCH (08:59)
[2018-07-30] MEDS: RANITIDINE HCL 150 MG TABLET PO SCH ×2 (09:00→16:49)
[2018-07-30] MEDS: NICOTINE 21 MG/24 HOUR PATCH TD SCH (09:00)
[2018-07-30] MEDS: ASPIRIN 81 MG EC TABLET PO SCH (10:32)
[2018-07-30] MEDS: BusPIRone HCL 10 MG TABLET PO SCH ×3 (10:32→16:49)
[2018-07-30 16:05] VITALS: BP 140/62
[2018-07-30] MEDS: MIRTAZAPINE 15 MG TABLET PO SCH (20:04)
[2018-07-31] MEDS: FERROUS SULFATE 325 MG EC TABLET PO SCH ×2 (06:43→11:34)
[2018-07-31] MEDS: LEVOTHYROXINE SODIUM 112 MCG TABLET PO SCH (06:43)
[2018-07-31 06:51] VITALS: BP 137/68
[2018-07-31 08:16] VITALS: BP 129/69
[2018-07-31] MEDS: ARIPiprazole 15 MG TABLET PO SCH (08:18)
[2018-07-31] MEDS: RANITIDINE HCL 150 MG TABLET PO SCH (08:18)
[2018-07-31] MEDS: BusPIRone HCL 10 MG TABLET PO SCH ×2 (08:18→12:10)
[2018-07-31] MEDS: ASPIRIN 81 MG EC TABLET PO SCH (08:18)
[2018-07-31] MEDS: LamoTRIgine 25 MG TABLET PO SCH (08:19)
[2018-07-31] MEDS: CYCLOBENZAPRINE HCL 10 MG TABLET PO SCH ×2 (08:19→12:11)
[2018-07-31] MEDS: PredniSONE 10 MG TABLET PO SCH (08:19)
[2018-07-31] MEDS: NICOTINE 21 MG/24 HOUR PATCH TD SCH (08:19)
[2018-07-31] MEDS: PARoxetine HCL 20 MG TABLET PO SCH (08:19)
[2018-07-31 09:02] LABS: APPEARANCE,URINE CLOUDY (CLEAR); BILIRUBIN,URINE NEGATIVE (NEGATIVE); GLUCOSE, URINE (UA) NEGATIVE (NEGATIVE); KETONES,URINE NEGATIVE (NEGATIVE); LEUKOCYTE ESTERASE ,URINE NEGATIVE (NEGATIVE); NITRATE,URINE NEGATIVE (NEGATIVE); OCCULT BLOOD,URINE MODERATE (NEGATIVE); PH,URINE 6.5 (5.0-8.0); PROTEIN,URINE NEGATIVE (NEGATIVE); UROBILINOGEN,URINE 0.2 mg/dL (<=1.0)
[2018-07-31] MEDS ORDERED: LAMO25 PO (09:04)
[2018-07-31] MEDS ORDERED: MIRT15 PO (09:04)
[2018-07-31] MEDS ORDERED: BUSP10TA23 PO (09:04)
[2018-07-31] MEDS ORDERED: ARIP15TA2 PO (09:04)
[2018-07-31 09:21] LABS: BACTERIA,URINE Moderate /HPF (None Seen); SQUAMOUS EPITHELIAL CELL,UR Few /LPF (None Seen)
[2018-07-31 09:22] LABS: TRIPLE PHOSPHATE CRYSTAL,UR Few /LPF (None Seen)
[2018-07-31 09:34] LABS: AMPHET/METH SCREEN,URINE NEGATIVE (NEGATIVE); BARBITURATE SCREEN, URINE NEGATIVE (NEGATIVE); BENZODIAZEPINES SCREEN,URINE NEGATIVE (NEGATIVE); CANNABINOID SCREEN,URINE NEGATIVE (NEGATIVE); COCAINE SCREEN,URINE NEGATIVE (NEGATIVE); METHADONE SCREEN, URINE NEGATIVE (NEGATIVE); OPIATE SCREEN,URINE NEGATIVE (NEGATIVE); PHENCYCLIDINE SCREEN,URINE NEGATIVE (NEGATIVE)
== END 2018-07-31 13:55 | disposition home or self-care (01) | DRG 753 ==
LOC: EMS 13:05 → B2S 17:31
DX: F31.4 Bipolar disorder, current episode depressed, severe, without psychotic features (principal); R45.851 Suicidal ideations; E03.9 Hypothyroidism, unspecified; Z28.21 Immunization not carried out because of patient refusal; K21.9 Gastro-esophageal reflux disease without esophagitis; M19.90 Unspecified osteoarthritis, unspecified site; Z91.5 Personal history of self-harm; Z79.899 Other long term (current) drug therapy; M79.7 Fibromyalgia; D64.9 Anemia, unspecified; E78.5 Hyperlipidemia, unspecified; F17.200 Nicotine dependence, unspecified, uncomplicated; F43.10 Post-traumatic stress disorder, unspecified; I10 Essential (primary) hypertension; J44.9 Chronic obstructive pulmonary disease, unspecified; F41.9 Anxiety disorder, unspecified; Z88.8 Allergy status to other drugs, medicaments and biological substances
CPT/HCPCS: 80307; 83036; 84443; 87086; G0480

== ENCOUNTER 2018-08-28 12:52 | Inpatient (IN) | payer MEDICAID, OTHER ==
[~2018-08-28] VITALS: Ht 162.6 cm; Wt 110.2 kg
[~2018-08-28 12:52] MED LIST changes: +CYCL10 PO; +MIRT15 PO; -PARO20TA24 PO; +PRED20 PO
[2018-08-28 14:08] LABS: BASOPHILS % (AUTO) 0.7 % (0.0-2.0); EOSINOPHILS % (AUTO) 0.9 % (1.0-6.0); HEMATOCRIT 44.1 % (36-46); HEMOGLOBIN 14.9 g/dL (12.0-16.0); LYMPHOCYTES # (AUTO) 2.9 K/uL (1.0-4.8); MEAN CORPUSCULAR HGB CONC 33.9 G/dL (31.0-37.0); MEAN CORPUSCULAR VOLUME 89 fL (80-100); MONOCYTES # (AUTO) 0.5 K/uL (0.1-1.0); NEUTROPHILS # (AUTO) 6.1 K/uL (1.8-7.7); NEUTROPHILS % (AUTO) 63.4 % (40.0-70.0); PLATELET COUNT (AUTO) 258 K/uL (150-450); RED BLOOD CELL COUNT(AUTO) 4.98 MIL/uL (4.00-5.20)
[2018-08-28 14:20] LABS: ANION GAP 10 mmol/L (8-16); CALCIUM, TOTAL 9.8 mg/dL (8.8-10.5); CARBON DIOXIDE 28 mmol/L (22-29); CHLORIDE 104 mmol/L (98-107); CREATININE 0.78 mg/dL (0.60-1.30); GLOMERULAR FILTR. RATE CALC > 60 mL/min (>60); GLUCOSE,RANDOM 93 mg/dL (70-110); POTASSIUM 3.7 mmol/L (3.5-5.1); SODIUM SERUM 142 mmol/L (136-145); UREA NITROGEN, BLOOD 9 mg/dL (7-18)
[2018-08-28 14:26] LABS: ALANINE AMINOTRANSFERASE 27 U/L (12-78); ALBUMIN 3.5 g/dL (3.4-5.0); ALKALINE PHOSPHATASE 83 U/L (46-116); ASPARTATE AMINOTRANSFERASE 21 U/L (15-37); BILIRUBIN,TOTAL 0.3 mg/dL (0.1-1.0); TOTAL PROTEIN, SERUM 7.2 g/dL (6.4-8.2)
[2018-08-28] MEDS ORDERED: HALOPERIDOL 5 MG TABLET PO PRN (14:30)
[2018-08-28] MEDS ORDERED: ZOLPIDEM TARTRATE 10 MG TABLET PO PRN (14:30)
[2018-08-28 14:51] LABS: THYROID STIMULATING HORMONE 1.06 uIU/mL (0.36-3.74)
[2018-08-28 15:15] LABS: AMPHET/METH SCREEN,URINE NEGATIVE (NEGATIVE); BARBITURATE SCREEN, URINE NEGATIVE (NEGATIVE); BENZODIAZEPINES SCREEN,URINE NEGATIVE (NEGATIVE); CANNABINOID SCREEN,URINE NEGATIVE (NEGATIVE); COCAINE SCREEN,URINE NEGATIVE (NEGATIVE); METHADONE SCREEN, URINE NEGATIVE (NEGATIVE); OPIATE SCREEN,URINE NEGATIVE (NEGATIVE); PHENCYCLIDINE SCREEN,URINE NEGATIVE (NEGATIVE)
[2018-08-28 15:18] LABS: APPEARANCE,URINE CLEAR (CLEAR); BILIRUBIN,URINE NEGATIVE (NEGATIVE); GLUCOSE, URINE (UA) NEGATIVE (NEGATIVE); KETONES,URINE NEGATIVE (NEGATIVE); LEUKOCYTE ESTERASE ,URINE NEGATIVE (NEGATIVE); NITRATE,URINE NEGATIVE (NEGATIVE); OCCULT BLOOD,URINE MODERATE (NEGATIVE); PH,URINE 7.5 (5.0-8.0); PROTEIN,URINE NEGATIVE (NEGATIVE); UROBILINOGEN,URINE 0.2 mg/dL (<=1.0)
[2018-08-28 15:33] LABS: RBC,URINE 0-2 /HPF (0-2)
[2018-08-28 15:34] LABS: BACTERIA,URINE Few /HPF (None Seen); SQUAMOUS EPITHELIAL CELL,UR Few /LPF (None Seen)
[2018-08-28 17:35] VITALS: BP 139/69
[2018-08-28] MEDS ORDERED: CloNIDine HCL 0.1 MG TABLET PO PRN (18:00)
[2018-08-28] MEDS ORDERED: GuaiFENesin/D-METHORPHAN [SUGAR-FREE] 200-20MG/10 ML SYRUP UDCUP PO PRN (18:00)
[2018-08-28] MEDS ORDERED: PETROLATUM,WHITE 71 GM JELLY TP PRN (18:00)
[2018-08-28] MEDS ORDERED: LOPERAMIDE HCL 2 MG CAPSULE PO PRN (18:00)
[2018-08-28] MEDS ORDERED: ALBUTEROL SULFATE HFA 90 MCG/PUFF 8 GM INHALER IH PRN (18:00)
[2018-08-28] MEDS ORDERED: IBUPROFEN 400 MG TABLET PO PRN (18:00)
[2018-08-28] MEDS ORDERED: ACETAMINOPHEN 325 MG TABLET PO PRN (18:00)
[2018-08-28] MEDS ORDERED: ONDANSETRON HCL 4 MG TABLET PO PRN (18:00)
[2018-08-28] MEDS ORDERED: MAGNESIUM HYDROXIDE SUSPENSION 30 ML UDCUP PO PRN (18:00)
[2018-08-28] MEDS ORDERED: MAG HYDROX/AL HYDROX/SIMETH ES 30 ML SUSPENSION UDCUP PO PRN (18:00)
[2018-08-28] MEDS ORDERED: DOCUSATE SODIUM 100 MG CAPSULE PO PRN (18:00)
[2018-08-28] MEDS ORDERED: PNEUMOCOCCAL VACCINE POLYVALENT 0.5 ML VIAL [PPSV23] IM ONE (23:00)
[2018-08-29 00:52] VITALS: BP 130/67
[2018-08-29] MEDS: LEVOTHYROXINE SODIUM 112 MCG TABLET PO SCH (06:42)
[2018-08-29] MEDS: FERROUS SULFATE 325 MG EC TABLET PO SCH ×3 (06:43→16:48)
[2018-08-29 08:36] VITALS: BP 112/61
[2018-08-29 08:46] LABS: BASOPHILS % (AUTO) 0.4 % (0.0-2.0); EOSINOPHILS % (AUTO) 1.1 % (1.0-6.0); HEMATOCRIT 43.7 % (36-46); HEMOGLOBIN 14.8 g/dL (12.0-16.0); LYMPHOCYTES # (AUTO) 2.2 K/uL (1.0-4.8); LYMPHOCYTES % (AUTO) 29.7 % (22.0-44.0); MEAN CORPUSCULAR HEMOGLOBIN 30.5 pg (26.0-34.0); MEAN CORPUSCULAR HGB CONC 33.9 G/dL (31.0-37.0); MEAN CORPUSCULAR VOLUME 90 fL (80-100); MONOCYTES # (AUTO) 0.3 K/uL (0.1-1.0); MONOCYTES % (AUTO) 4.4 % (2.0-9.0); NEUTROPHILS # (AUTO) 4.8 K/uL (1.8-7.7); NEUTROPHILS % (AUTO) 64.4 % (40.0-70.0); PLATELET COUNT (AUTO) 236 K/uL (150-450); RED BLOOD CELL COUNT(AUTO) 4.87 MIL/uL (4.00-5.20)
[2018-08-29] MEDS: RANITIDINE HCL 150 MG TABLET PO SCH ×2 (09:31→16:47)
[2018-08-29] MEDS: NICOTINE 14 MG/24 HOUR PATCH TD SCH (09:31)
[2018-08-29] MEDS: ASPIRIN 81 MG CHEWABLE TABLET PO SCH (09:31)
[2018-08-29 09:43] LABS: ALANINE AMINOTRANSFERASE 27 U/L (12-78); ALBUMIN 3.2 g/dL (3.4-5.0); ALKALINE PHOSPHATASE 74 U/L (46-116); ANION GAP 6 mmol/L (8-16); ASPARTATE AMINOTRANSFERASE 19 U/L (15-37); BILIRUBIN,TOTAL 0.3 mg/dL (0.1-1.0); CARBON DIOXIDE 31 mmol/L (22-29); CHLORIDE 106 mmol/L (98-107); CHOL/HDL RATIO 4.2 (3.9-5.7); CHOLESTEROL 167 mg/dL (131-200); CREATININE 0.71 mg/dL (0.60-1.30); GLOMERULAR FILTR. RATE CALC > 60 mL/min (>60); GLUCOSE,RANDOM 100 mg/dL (70-110); HDL CHOLESTEROL 40 mg/dL (40-60); LDL CHOL (CALC.) 91 mg/dL (0-130); SODIUM SERUM 143 mmol/L (136-145); THYROID STIMULATING HORMONE 1.08 uIU/mL (0.36-3.74); TOTAL PROTEIN, SERUM 6.8 g/dL (6.4-8.2); TRIGLYCERIDES 181 mg/dL (15-150); UREA NITROGEN, BLOOD 14 mg/dL (7-18)
[2018-08-29] MEDS: LORazepam 2 MG TABLET PO PRN (09:55)
[2018-08-29] MEDS: ARIPiprazole 15 MG TABLET PO SCH (14:08)
[2018-08-29] MEDS: BusPIRone HCL 10 MG TABLET PO SCH ×2 (14:08→16:47)
[2018-08-29] MEDS: LamoTRIgine 25 MG TABLET PO SCH (14:08)
[2018-08-29 16:28] VITALS: BP 122/71
[2018-08-29] MEDS: MIRTAZAPINE 15 MG TABLET PO SCH (20:03)
[2018-08-30 01:30] VITALS: BP 132/78
[2018-08-30] MEDS: FERROUS SULFATE 325 MG EC TABLET PO SCH ×3 (06:45→16:33)
[2018-08-30] MEDS: LEVOTHYROXINE SODIUM 112 MCG TABLET PO SCH (06:45)
[2018-08-30] MEDS: ASPIRIN 81 MG CHEWABLE TABLET PO SCH (09:04)
[2018-08-30] MEDS: ARIPiprazole 15 MG TABLET PO SCH (09:04)
[2018-08-30] MEDS: LamoTRIgine 25 MG TABLET PO SCH (09:04)
[2018-08-30] MEDS: NICOTINE 14 MG/24 HOUR PATCH TD SCH (09:05)
[2018-08-30] MEDS: BusPIRone HCL 10 MG TABLET PO SCH ×3 (09:07→16:32)
[2018-08-30] MEDS: RANITIDINE HCL 150 MG TABLET PO SCH ×2 (09:07→16:32)
[2018-08-30 09:44] VITALS: BP 137/61
[2018-08-30] MEDS: LORazepam 2 MG TABLET PO PRN (15:07)
[2018-08-30 16:21] VITALS: BP 139/68
[2018-08-30] MEDS: MIRTAZAPINE 15 MG TABLET PO SCH (20:22)
[2018-08-31 00:55] VITALS: BP 117/71
[2018-08-31] MEDS: LEVOTHYROXINE SODIUM 112 MCG TABLET PO SCH (06:49)
[2018-08-31] MEDS: FERROUS SULFATE 325 MG EC TABLET PO SCH ×3 (06:49→16:37)
[2018-08-31 08:37] VITALS: BP 124/73
[2018-08-31] MEDS: NICOTINE 14 MG/24 HOUR PATCH TD SCH (08:43)
[2018-08-31] MEDS: ASPIRIN 81 MG CHEWABLE TABLET PO SCH (08:44)
[2018-08-31] MEDS: BusPIRone HCL 10 MG TABLET PO SCH ×3 (08:44→16:38)
[2018-08-31] MEDS: RANITIDINE HCL 150 MG TABLET PO SCH ×2 (08:44→16:37)
[2018-08-31] MEDS: ARIPiprazole 15 MG TABLET PO SCH (08:44)
[2018-08-31] MEDS: LamoTRIgine 25 MG TABLET PO SCH (08:59)
[2018-08-31 17:59] VITALS: BP 114/66
[2018-08-31] MEDS: MIRTAZAPINE 15 MG TABLET PO SCH (20:23)
[2018-09-01 06:30] VITALS: BP 117/77
[2018-09-01] MEDS: LEVOTHYROXINE SODIUM 112 MCG TABLET PO SCH (07:07)
[2018-09-01] MEDS: FERROUS SULFATE 325 MG EC TABLET PO SCH ×3 (07:07→17:07)
[2018-09-01 09:00] VITALS: BP 128/76
[2018-09-01] MEDS: ASPIRIN 81 MG CHEWABLE TABLET PO SCH (09:29)
[2018-09-01] MEDS: RANITIDINE HCL 150 MG TABLET PO SCH ×2 (09:29→17:06)
[2018-09-01] MEDS: BusPIRone HCL 10 MG TABLET PO SCH ×3 (09:29→17:07)
[2018-09-01] MEDS: NICOTINE 14 MG/24 HOUR PATCH TD SCH (09:30)
[2018-09-01] MEDS: LamoTRIgine 25 MG TABLET PO SCH (09:30)
[2018-09-01] MEDS: ARIPiprazole 15 MG TABLET PO SCH (09:30)
[2018-09-01 16:12] VITALS: BP 108/67
[2018-09-01] MEDS: MIRTAZAPINE 15 MG TABLET PO SCH (20:25)
[2018-09-02 06:53] VITALS: BP 144/71
[2018-09-02] MEDS: FERROUS SULFATE 325 MG EC TABLET PO SCH ×3 (07:07→16:57)
[2018-09-02] MEDS: LEVOTHYROXINE SODIUM 112 MCG TABLET PO SCH (07:07)
[2018-09-02 08:53] VITALS: BP 114/75
[2018-09-02] MEDS: LamoTRIgine 25 MG TABLET PO SCH (09:34)
[2018-09-02] MEDS: RANITIDINE HCL 150 MG TABLET PO SCH ×2 (09:34→16:57)
[2018-09-02] MEDS: BusPIRone HCL 10 MG TABLET PO SCH ×3 (09:34→16:57)
[2018-09-02] MEDS: ARIPiprazole 15 MG TABLET PO SCH (09:34)
[2018-09-02] MEDS: ASPIRIN 81 MG CHEWABLE TABLET PO SCH (09:34)
[2018-09-02] MEDS: NICOTINE 14 MG/24 HOUR PATCH TD SCH (09:35)
[2018-09-02 17:29] VITALS: BP 123/75
[2018-09-02] MEDS: MIRTAZAPINE 15 MG TABLET PO SCH (20:10)
[2018-09-03] MEDS: FERROUS SULFATE 325 MG EC TABLET PO SCH ×3 (06:52→16:05)
[2018-09-03] MEDS: LEVOTHYROXINE SODIUM 112 MCG TABLET PO SCH (06:52)
[2018-09-03 07:16] VITALS: BP 140/81
[2018-09-03 08:23] VITALS: BP 134/88
[2018-09-03] MEDS: ASPIRIN 81 MG CHEWABLE TABLET PO SCH (08:52)
[2018-09-03] MEDS: RANITIDINE HCL 150 MG TABLET PO SCH ×2 (08:52→16:05)
[2018-09-03] MEDS: LamoTRIgine 25 MG TABLET PO SCH (08:53)
[2018-09-03] MEDS: BusPIRone HCL 10 MG TABLET PO SCH ×3 (08:53→16:05)
[2018-09-03] MEDS: NICOTINE 14 MG/24 HOUR PATCH TD SCH (09:55)
[2018-09-03] MEDS: ARIPiprazole 15 MG TABLET PO SCH (09:56)
[2018-09-03 16:09] VITALS: BP 114/77
[2018-09-03] MEDS: LORazepam 2 MG TABLET PO PRN (18:47)
[2018-09-03] MEDS: MIRTAZAPINE 15 MG TABLET PO SCH (20:41)
[2018-09-04 00:42] VITALS: BP 122/64
[2018-09-04] MEDS: LEVOTHYROXINE SODIUM 112 MCG TABLET PO SCH (06:43)
[2018-09-04] MEDS: FERROUS SULFATE 325 MG EC TABLET PO SCH ×2 (06:43→11:35)
[2018-09-04 08:32] VITALS: BP 136/74
[2018-09-04] MEDS: ASPIRIN 81 MG CHEWABLE TABLET PO SCH (08:41)
[2018-09-04] MEDS: LamoTRIgine 25 MG TABLET PO SCH (08:41)
[2018-09-04] MEDS: RANITIDINE HCL 150 MG TABLET PO SCH (08:41)
[2018-09-04] MEDS: BusPIRone HCL 10 MG TABLET PO SCH (08:41)
[2018-09-04] MEDS: NICOTINE 14 MG/24 HOUR PATCH TD SCH (08:41)
[2018-09-04] MEDS: ARIPiprazole 15 MG TABLET PO SCH (08:41)
[2018-09-04] MEDS ORDERED: LAMO25 PO (09:00)
== END 2018-09-04 13:25 | disposition home or self-care (01) | DRG 753 ==
LOC: EMS 12:53 → B2S 16:34
DX: F31.4 Bipolar disorder, current episode depressed, severe, without psychotic features (principal); R45.851 Suicidal ideations; E03.9 Hypothyroidism, unspecified; F17.210 Nicotine dependence, cigarettes, uncomplicated; F43.10 Post-traumatic stress disorder, unspecified; K21.9 Gastro-esophageal reflux disease without esophagitis; M19.90 Unspecified osteoarthritis, unspecified site; I10 Essential (primary) hypertension; J44.9 Chronic obstructive pulmonary disease, unspecified; Z79.82 Long term (current) use of aspirin; Z79.899 Other long term (current) drug therapy; Z28.21 Immunization not carried out because of patient refusal; Z79.890 Hormone replacement therapy
CPT/HCPCS: 83036; 84443; 99406; G0480

== ENCOUNTER 2018-11-08 08:02 | Inpatient (IN) | payer MEDICAID, OTHER ==
[~2018-11-08] VITALS: Ht 160 cm; Wt 108.9 kg
[~2018-11-08 08:02] MED LIST changes: -ARIP15TA2 PO; -ASPI-1182 PO; -BUSP10TA23 PO; -CYCL10 PO; +DULO60CA44 PO; -FERR-89 PO; -LAMO25 PO; -MIRT15 PO; +OLAN5TAB2 PO; -PRED20 PO
[2018-11-08 09:00] LABS: AMPHET/METH SCREEN,URINE NEGATIVE (NEGATIVE); BARBITURATE SCREEN, URINE NEGATIVE (NEGATIVE); BENZODIAZEPINES SCREEN,URINE NEGATIVE (NEGATIVE); CANNABINOID SCREEN,URINE NEGATIVE (NEGATIVE); COCAINE SCREEN,URINE NEGATIVE (NEGATIVE); METHADONE SCREEN, URINE NEGATIVE (NEGATIVE); OPIATE SCREEN,URINE NEGATIVE (NEGATIVE)
[2018-11-08 09:08] LABS: PHENCYCLIDINE SCREEN,URINE NEGATIVE (NEGATIVE)
[2018-11-08 09:10] LABS: BASOPHILS % (AUTO) 0.4 % (0.0-2.0); EOSINOPHILS % (AUTO) 0.2 % (1.0-6.0); HEMOGLOBIN 14.4 g/dL (12.0-16.0); LYMPHOCYTES # (AUTO) 1.6 K/uL (1.0-4.8); LYMPHOCYTES % (AUTO) 26.2 % (22.0-44.0); MEAN CORPUSCULAR HGB CONC 33.5 G/dL (31.0-37.0); MEAN CORPUSCULAR VOLUME 89 fL (80-100); MONOCYTES # (AUTO) 0.3 K/uL (0.1-1.0); NEUTROPHILS # (AUTO) 4.2 K/uL (1.8-7.7); NEUTROPHILS % (AUTO) 68.2 % (40.0-70.0); PLATELET COUNT (AUTO) 230 K/uL (150-450); RED BLOOD CELL COUNT(AUTO) 4.81 MIL/uL (4.00-5.20)
[2018-11-08 09:21] LABS: ANION GAP 11 mmol/L (8-16); CALCIUM, TOTAL 9.4 mg/dL (8.8-10.5); CARBON DIOXIDE 25 mmol/L (22-29); CHLORIDE 105 mmol/L (98-107); CREATININE 0.62 mg/dL (0.60-1.30); GLOMERULAR FILTR. RATE CALC > 60 mL/min (>60); GLUCOSE,RANDOM 106 mg/dL (70-110); POTASSIUM 3.8 mmol/L (3.5-5.1); SODIUM SERUM 141 mmol/L (136-145); UREA NITROGEN, BLOOD 10 mg/dL (7-18)
[2018-11-08 09:28] LABS: ALANINE AMINOTRANSFERASE 29 U/L (12-78); ALBUMIN 3.8 g/dL (3.4-5.0); ALKALINE PHOSPHATASE 73 U/L (46-116); ASPARTATE AMINOTRANSFERASE 28 U/L (15-37); BILIRUBIN,TOTAL 0.4 mg/dL (0.1-1.0); TOTAL PROTEIN, SERUM 7.5 g/dL (6.4-8.2)
[2018-11-08] MEDS ORDERED: ZOLPIDEM TARTRATE 10 MG TABLET PO PRN (11:45)
[2018-11-08] MEDS ORDERED: QUEtiapine FUMARATE 100 MG TABLET PO PRN (11:45)
[2018-11-08 16:03] VITALS: BP 123/71
[2018-11-08] MEDS ORDERED: PNEUMOCOCCAL VACCINE POLYVALENT 0.5 ML VIAL [PPSV23] IM ONE (16:15)
[2018-11-08] MEDS ORDERED: ACETAMINOPHEN 325 MG TABLET PO PRN (18:00)
[2018-11-08] MEDS ORDERED: CloNIDine HCL 0.1 MG TABLET PO PRN (18:00)
[2018-11-08] MEDS ORDERED: ALBUTEROL SULFATE HFA 90 MCG/PUFF 8 GM INHALER IH PRN (18:00)
[2018-11-08] MEDS ORDERED: MAGNESIUM HYDROXIDE SUSPENSION 30 ML UDCUP PO PRN (18:00)
[2018-11-08] MEDS ORDERED: LOPERAMIDE HCL 2 MG CAPSULE PO PRN (18:00)
[2018-11-08] MEDS ORDERED: DOCUSATE SODIUM 100 MG CAPSULE PO PRN (18:00)
[2018-11-08] MEDS ORDERED: PETROLATUM,WHITE 28 GM JELLY TP PRN (18:00)
[2018-11-08] MEDS ORDERED: IBUPROFEN 400 MG TABLET PO PRN (18:00)
[2018-11-08] MEDS ORDERED: ONDANSETRON HCL 4 MG TABLET PO PRN (18:00)
[2018-11-08] MEDS ORDERED: MAG HYDROX/AL HYDROX/SIMETH ES 30 ML SUSPENSION UDCUP PO PRN (18:00)
[2018-11-08] MEDS ORDERED: GuaiFENesin/D-METHORPHAN [SUGAR-FREE] 200-20MG/10 ML SYRUP UDCUP PO PRN (18:00)
[2018-11-08] MEDS: OLANZapine 5 MG TABLET PO SCH (20:17)
[2018-11-08] MEDS: LORazepam 2 MG TABLET PO PRN (21:52)
[2018-11-09 00:38] VITALS: BP 107/68
[2018-11-09] MEDS: LEVOTHYROXINE SODIUM 112 MCG TABLET PO SCH (06:55)
[2018-11-09 08:12] LABS: BASOPHILS % (AUTO) 0.2 % (0.0-2.0); EOSINOPHILS % (AUTO) 0.5 % (1.0-6.0); HEMATOCRIT 42.2 % (36-46); HEMOGLOBIN 14.1 g/dL (12.0-16.0); LYMPHOCYTES # (AUTO) 1.7 K/uL (1.0-4.8); LYMPHOCYTES % (AUTO) 28.3 % (22.0-44.0); MEAN CORPUSCULAR HEMOGLOBIN 29.9 pg (26.0-34.0); MEAN CORPUSCULAR HGB CONC 33.6 G/dL (31.0-37.0); MEAN CORPUSCULAR VOLUME 89 fL (80-100); MONOCYTES # (AUTO) 0.3 K/uL (0.1-1.0); MONOCYTES % (AUTO) 4.6 % (2.0-9.0); NEUTROPHILS % (AUTO) 66.4 % (40.0-70.0); PLATELET COUNT (AUTO) 239 K/uL (150-450); RED BLOOD CELL COUNT(AUTO) 4.73 MIL/uL (4.00-5.20); RED CELL DISTRIBUTION WIDTH 12.9 % (11.5-14.5)
[2018-11-09 08:14] LABS: HEMOGLOBIN A1C 5.6 % (4.5-6.2)
[2018-11-09 08:22] VITALS: BP 124/80
[2018-11-09 08:33] LABS: ALANINE AMINOTRANSFERASE 27 U/L (12-78); ALBUMIN 3.7 g/dL (3.4-5.0); ALKALINE PHOSPHATASE 75 U/L (46-116); ANION GAP 10 mmol/L (8-16); ASPARTATE AMINOTRANSFERASE 21 U/L (15-37); BILIRUBIN,TOTAL 0.4 mg/dL (0.1-1.0); CALCIUM, TOTAL 9.5 mg/dL (8.8-10.5); CARBON DIOXIDE 26 mmol/L (22-29); CHLORIDE 107 mmol/L (98-107); CHOL/HDL RATIO 4.7 (3.9-5.7); CHOLESTEROL 184 mg/dL (131-200); CREATININE 0.75 mg/dL (0.60-1.30); FREE T4 (FREE THYROXINE) 1.18 ng/dL (0.76-1.46); GLOMERULAR FILTR. RATE CALC > 60 mL/min (>60); GLUCOSE,RANDOM 97 mg/dL (70-110); HDL CHOLESTEROL 39 mg/dL (40-60); LDL CHOL (CALC.) 124 mg/dL (0-130); POTASSIUM 4.2 mmol/L (3.5-5.1); SODIUM SERUM 143 mmol/L (136-145); THYROID STIMULATING HORMONE 0.41 uIU/mL (0.36-3.74); TOTAL PROTEIN, SERUM 6.7 g/dL (6.4-8.2); TRIGLYCERIDES 103 mg/dL (15-150); UREA NITROGEN, BLOOD 13 mg/dL (7-18)
[2018-11-09] MEDS: DULoxetine HCL 60 MG CAPSULE PO SCH (08:52)
[2018-11-09] MEDS: OLANZapine 5 MG TABLET PO SCH ×2 (08:53→20:08)
[2018-11-09] MEDS: RANITIDINE HCL 150 MG TABLET PO SCH (08:53)
[2018-11-09] MEDS: NICOTINE 14 MG/24 HOUR PATCH TD SCH (10:04)
[2018-11-09] MEDS: BACITRACIN 28.4 GM OINTMENT TP SCH ×2 (10:10→17:00)
[2018-11-09 16:14] VITALS: BP 121/68
[2018-11-10 06:12] VITALS: BP 143/73
[2018-11-10] MEDS: LEVOTHYROXINE SODIUM 112 MCG TABLET PO SCH (07:19)
[2018-11-10 08:05] VITALS: BP 115/67
[2018-11-10] MEDS: OLANZapine 5 MG TABLET PO SCH ×2 (08:54→20:07)
[2018-11-10] MEDS: RANITIDINE HCL 150 MG TABLET PO SCH (08:55)
[2018-11-10] MEDS: NICOTINE 14 MG/24 HOUR PATCH TD SCH (08:55)
[2018-11-10] MEDS: DULoxetine HCL 60 MG CAPSULE PO SCH (08:55)
[2018-11-10] MEDS: BACITRACIN 28.4 GM OINTMENT TP SCH ×2 (09:01→16:42)
[2018-11-10] MEDS: LORazepam 2 MG TABLET PO PRN (09:02)
[2018-11-10 17:44] VITALS: BP 120/70
[2018-11-11 00:05] VITALS: BP 108/66
[2018-11-11] MEDS: LEVOTHYROXINE SODIUM 112 MCG TABLET PO SCH (06:51)
[2018-11-11 08:03] VITALS: BP 116/58
[2018-11-11] MEDS: OLANZapine 5 MG TABLET PO SCH ×2 (08:49→20:05)
[2018-11-11] MEDS: RANITIDINE HCL 150 MG TABLET PO SCH (08:50)
[2018-11-11] MEDS: DULoxetine HCL 60 MG CAPSULE PO SCH (08:50)
[2018-11-11] MEDS ORDERED: DULoxetine HCL 30 MG CAPSULE PO SCH (09:00)
[2018-11-11] MEDS: NICOTINE 14 MG/24 HOUR PATCH TD SCH (09:14)
[2018-11-11] MEDS: BACITRACIN 28.4 GM OINTMENT TP SCH ×2 (09:14→16:08)
[2018-11-11 10:17] VITALS: BP 125/62
[2018-11-11 17:54] VITALS: BP 110/65
[2018-11-12 05:12] VITALS: BP 114/63
[2018-11-12] MEDS: LEVOTHYROXINE SODIUM 112 MCG TABLET PO SCH (06:58)
[2018-11-12 08:13] VITALS: BP 134/79
[2018-11-12] MEDS: DULoxetine HCL 30 MG CAPSULE PO SCH (09:05)
[2018-11-12] MEDS: BACITRACIN 28.4 GM OINTMENT TP SCH ×2 (09:07→17:13)
[2018-11-12] MEDS: OLANZapine 5 MG TABLET PO SCH ×2 (09:07→21:12)
[2018-11-12] MEDS: NICOTINE 14 MG/24 HOUR PATCH TD SCH (09:07)
[2018-11-12] MEDS: RANITIDINE HCL 150 MG TABLET PO SCH (09:07)
[2018-11-12] MEDS: LORazepam 2 MG TABLET PO PRN (09:47)
[2018-11-12 17:36] VITALS: BP 127/73
[2018-11-13] MEDS: LEVOTHYROXINE SODIUM 112 MCG TABLET PO SCH (06:29)
[2018-11-13 07:22] VITALS: BP 125/75
[2018-11-13 08:10] VITALS: BP 134/60
[2018-11-13] MEDS: OLANZapine 5 MG TABLET PO SCH (09:30)
[2018-11-13] MEDS: RANITIDINE HCL 150 MG TABLET PO SCH (09:30)
[2018-11-13] MEDS: DULoxetine HCL 30 MG CAPSULE PO SCH (09:30)
[2018-11-13] MEDS: BACITRACIN 28.4 GM OINTMENT TP SCH ×2 (09:31→17:02)
[2018-11-13] MEDS: NICOTINE 14 MG/24 HOUR PATCH TD SCH (09:31)
[2018-11-13 16:41] VITALS: BP 116/60
[2018-11-13] MEDS: OLANZapine 10 MG TABLET PO SCH (20:25)
[2018-11-14 00:20] VITALS: BP 105/60
[2018-11-14] MEDS: LEVOTHYROXINE SODIUM 112 MCG TABLET PO SCH (07:01)
[2018-11-14 08:17] VITALS: BP 132/71
[2018-11-14] MEDS: DULoxetine HCL 30 MG CAPSULE PO SCH (08:42)
[2018-11-14] MEDS: NICOTINE 14 MG/24 HOUR PATCH TD SCH (08:43)
[2018-11-14] MEDS: RANITIDINE HCL 150 MG TABLET PO SCH (08:43)
[2018-11-14] MEDS: OLANZapine 5 MG TABLET PO SCH (08:43)
[2018-11-14] MEDS: BACITRACIN 28.4 GM OINTMENT TP SCH ×2 (08:55→17:11)
[2018-11-14] MEDS: LORazepam 2 MG TABLET PO PRN (09:34)
[2018-11-14 16:33] VITALS: BP 110/60
[2018-11-14] MEDS: OLANZapine 10 MG TABLET PO SCH (20:52)
[2018-11-15 00:21] VITALS: BP 133/76
[2018-11-15] MEDS: LEVOTHYROXINE SODIUM 112 MCG TABLET PO SCH (06:51)
[2018-11-15] MEDS: BACITRACIN 28.4 GM OINTMENT TP SCH ×2 (08:08→16:25)
[2018-11-15] MEDS: OLANZapine 5 MG TABLET PO SCH (08:08)
[2018-11-15] MEDS: NICOTINE 14 MG/24 HOUR PATCH TD SCH (08:08)
[2018-11-15] MEDS: DULoxetine HCL 30 MG CAPSULE PO SCH (08:08)
[2018-11-15] MEDS: RANITIDINE HCL 150 MG TABLET PO SCH (08:08)
[2018-11-15 08:12] VITALS: BP 119/71
[2018-11-15 16:14] VITALS: BP 119/69
[2018-11-15] MEDS: OLANZapine 10 MG TABLET PO SCH (20:59)
[2018-11-16 06:30] VITALS: BP 107/64
[2018-11-16] MEDS: LEVOTHYROXINE SODIUM 112 MCG TABLET PO SCH (06:31)
[2018-11-16 08:31] VITALS: BP 101/61
[2018-11-16] MEDS: NICOTINE 14 MG/24 HOUR PATCH TD SCH (09:00)
[2018-11-16] MEDS: BACITRACIN 28.4 GM OINTMENT TP SCH ×2 (09:00→16:35)
[2018-11-16] MEDS: OLANZapine 5 MG TABLET PO SCH (09:01)
[2018-11-16] MEDS: LORazepam 2 MG TABLET PO PRN (09:01)
[2018-11-16] MEDS: DULoxetine HCL 30 MG CAPSULE PO SCH (09:01)
[2018-11-16] MEDS: RANITIDINE HCL 150 MG TABLET PO SCH (09:01)
[2018-11-16 16:00] VITALS: BP 135/68
[2018-11-16] MEDS: OLANZapine 10 MG TABLET PO SCH (20:28)
[2018-11-17 06:19] VITALS: BP 123/75
[2018-11-17] MEDS: LEVOTHYROXINE SODIUM 112 MCG TABLET PO SCH (06:59)
[2018-11-17 09:08] VITALS: BP 141/96
[2018-11-17] MEDS: OLANZapine 5 MG TABLET PO SCH (09:11)
[2018-11-17] MEDS: NICOTINE 14 MG/24 HOUR PATCH TD SCH (09:11)
[2018-11-17] MEDS: DULoxetine HCL 30 MG CAPSULE PO SCH (09:11)
[2018-11-17] MEDS: BACITRACIN 28.4 GM OINTMENT TP SCH ×2 (09:12→17:23)
[2018-11-17] MEDS: RANITIDINE HCL 150 MG TABLET PO SCH (09:12)
[2018-11-17 16:02] VITALS: BP 111/77
[2018-11-17] MEDS: OLANZapine 10 MG TABLET PO SCH (20:28)
[2018-11-18] MEDS: LEVOTHYROXINE SODIUM 112 MCG TABLET PO SCH (06:31)
[2018-11-18 07:27] VITALS: BP 110/75
[2018-11-18 08:12] VITALS: BP 127/64
[2018-11-18] MEDS: NICOTINE 14 MG/24 HOUR PATCH TD SCH (09:21)
[2018-11-18] MEDS: LORazepam 2 MG TABLET PO PRN (09:21)
[2018-11-18] MEDS: RANITIDINE HCL 150 MG TABLET PO SCH (09:22)
[2018-11-18] MEDS: OLANZapine 5 MG TABLET PO SCH (09:22)
[2018-11-18] MEDS: BACITRACIN 28.4 GM OINTMENT TP SCH ×2 (09:22→16:29)
[2018-11-18] MEDS: DULoxetine HCL 30 MG CAPSULE PO SCH (09:22)
[2018-11-18 16:07] VITALS: BP_SYST 113; BP_SYST 18; BP_DIAS 72
[2018-11-18] MEDS: OLANZapine 10 MG TABLET PO SCH (20:07)
[2018-11-19 06:45] VITALS: BP 115/73
[2018-11-19] MEDS: LEVOTHYROXINE SODIUM 112 MCG TABLET PO SCH (06:54)
[2018-11-19 08:12] VITALS: BP 108/67
[2018-11-19] MEDS: OLANZapine 5 MG TABLET PO SCH (08:28)
[2018-11-19] MEDS: DULoxetine HCL 30 MG CAPSULE PO SCH (09:00)
[2018-11-19] MEDS: RANITIDINE HCL 150 MG TABLET PO SCH (09:01)
[2018-11-19] MEDS: BACITRACIN 28.4 GM OINTMENT TP SCH ×2 (09:01→17:13)
[2018-11-19] MEDS: NICOTINE 14 MG/24 HOUR PATCH TD SCH (09:02)
[2018-11-19 16:30] VITALS: BP 121/71
[2018-11-19] MEDS: OLANZapine 10 MG TABLET PO SCH (20:51)
[2018-11-20 01:00] VITALS: BP 116/68
[2018-11-20] MEDS: LEVOTHYROXINE SODIUM 112 MCG TABLET PO SCH (06:54)
[2018-11-20 08:10] VITALS: BP 116/65
[2018-11-20] MEDS: RANITIDINE HCL 150 MG TABLET PO SCH (08:47)
[2018-11-20] MEDS: OLANZapine 5 MG TABLET PO SCH (08:47)
[2018-11-20] MEDS: DULoxetine HCL 30 MG CAPSULE PO SCH (08:48)
[2018-11-20] MEDS: NICOTINE 14 MG/24 HOUR PATCH TD SCH (08:48)
[2018-11-20] MEDS: BACITRACIN 28.4 GM OINTMENT TP SCH (08:48)
[2018-11-20] MEDS ORDERED: DULO30CA2 PO (10:16)
[2018-11-20] MEDS ORDERED: OLAN10TA20 PO (10:16)
[2018-11-20] MEDS ORDERED: OLAN5TAB27 PO (10:16)
[2018-11-20] MEDS ORDERED: BACI30OI6 TP (11:56)
== END 2018-11-20 14:36 | disposition home or self-care (01) | DRG 753 ==
LOC: EMS 08:02 → B2S 11:52 → B3A 11-11 21:31 → B2S 11-18 19:36
DX: F31.4 Bipolar disorder, current episode depressed, severe, without psychotic features (principal); R45.851 Suicidal ideations; E03.9 Hypothyroidism, unspecified; K21.9 Gastro-esophageal reflux disease without esophagitis; S60.812A Abrasion of left wrist, initial encounter; X78.8XXA Intentional self-harm by other sharp object, initial encounter; Y93.89 Activity, other specified; Y92.89 Other specified places as the place of occurrence of the external cause; Y99.8 Other external cause status; Z88.8 Allergy status to other drugs, medicaments and biological substances; F43.10 Post-traumatic stress disorder, unspecified; F17.210 Nicotine dependence, cigarettes, uncomplicated; M19.90 Unspecified osteoarthritis, unspecified site; F41.9 Anxiety disorder, unspecified; I10 Essential (primary) hypertension; J45.909 Unspecified asthma, uncomplicated; Z71.6 Tobacco abuse counseling; M51.36 Other intervertebral disc degeneration, lumbar region; Z91.5 Personal history of self-harm; Z79.899 Other long term (current) drug therapy
CPT/HCPCS: 83036; 84439; 84443; 87081; G0480

== ENCOUNTER 2018-12-02 10:59 | Inpatient (IN) | payer MEDICAID, OTHER ==
[~2018-12-02] VITALS: Ht 165.1 cm; Wt 111.1 kg
[~2018-12-02 10:59] MED LIST changes: +BACI30OI6 TP; +DULO30CA2 PO; -DULO60CA44 PO; +OLAN10TA20 PO; -OLAN5TAB2 PO; +OLAN5TAB27 PO
[2018-12-02 11:50] LABS: BASOPHILS % (AUTO) 0.5 % (0.0-2.0); EOSINOPHILS % (AUTO) 0.2 % (1.0-6.0); HEMATOCRIT 44.1 % (36-46); HEMOGLOBIN 15.1 g/dL (12.0-16.0); LYMPHOCYTES # (AUTO) 1.8 K/uL (1.0-4.8); LYMPHOCYTES % (AUTO) 22.1 % (22.0-44.0); MEAN CORPUSCULAR HEMOGLOBIN 30.1 pg (26.0-34.0); MEAN CORPUSCULAR HGB CONC 34.2 G/dL (31.0-37.0); MEAN CORPUSCULAR VOLUME 88 fL (80-100); MONOCYTES # (AUTO) 0.4 K/uL (0.1-1.0); MONOCYTES % (AUTO) 5.1 % (2.0-9.0); NEUTROPHILS # (AUTO) 5.8 K/uL (1.8-7.7); NEUTROPHILS % (AUTO) 72.1 % (40.0-70.0); PLATELET COUNT (AUTO) 261 K/uL (150-450); RED BLOOD CELL COUNT(AUTO) 5.02 MIL/uL (4.00-5.20); RED CELL DISTRIBUTION WIDTH 12.9 % (11.5-14.5)
[2018-12-02 12:18] LABS: ANION GAP 10 mmol/L (8-16); CALCIUM, TOTAL 9.7 mg/dL (8.8-10.5); CARBON DIOXIDE 28 mmol/L (22-29); CHLORIDE 104 mmol/L (98-107); CREATININE 0.72 mg/dL (0.60-1.30); GLOMERULAR FILTR. RATE CALC > 60 mL/min (>60); GLUCOSE,RANDOM 112 mg/dL (70-110); POTASSIUM 3.6 mmol/L (3.5-5.1); SODIUM SERUM 142 mmol/L (136-145); UREA NITROGEN, BLOOD 11 mg/dL (7-18)
[2018-12-02 12:19] LABS: ALANINE AMINOTRANSFERASE 31 U/L (12-78); ALBUMIN 3.9 g/dL (3.4-5.0); ALKALINE PHOSPHATASE 80 U/L (46-116); ASPARTATE AMINOTRANSFERASE 20 U/L (15-37); BILIRUBIN,TOTAL 0.3 mg/dL (0.1-1.0); TOTAL PROTEIN, SERUM 7.8 g/dL (6.4-8.2)
[2018-12-02 12:31] LABS: AMPHET/METH SCREEN,URINE NEGATIVE (NEGATIVE); BARBITURATE SCREEN, URINE NEGATIVE (NEGATIVE); BENZODIAZEPINES SCREEN,URINE NEGATIVE (NEGATIVE); CANNABINOID SCREEN,URINE NEGATIVE (NEGATIVE); COCAINE SCREEN,URINE NEGATIVE (NEGATIVE); METHADONE SCREEN, URINE NEGATIVE (NEGATIVE); OPIATE SCREEN,URINE NEGATIVE (NEGATIVE); PHENCYCLIDINE SCREEN,URINE NEGATIVE (NEGATIVE)
[2018-12-02] MEDS ORDERED: QUEtiapine FUMARATE 100 MG TABLET PO PRN (13:30)
[2018-12-02] MEDS ORDERED: ZOLPIDEM TARTRATE 10 MG TABLET PO PRN (13:30)
[2018-12-03 07:04] LABS: BASOPHILS % (AUTO) 0.1 % (0.0-2.0); EOSINOPHILS % (AUTO) 0.2 % (1.0-6.0); HEMOGLOBIN 14.6 g/dL (12.0-16.0); LYMPHOCYTES % (AUTO) 26.1 % (22.0-44.0); MEAN CORPUSCULAR HEMOGLOBIN 29.5 pg (26.0-34.0); MEAN CORPUSCULAR HGB CONC 33.2 G/dL (31.0-37.0); MEAN CORPUSCULAR VOLUME 89 fL (80-100); MONOCYTES # (AUTO) 0.4 K/uL (0.1-1.0); MONOCYTES % (AUTO) 5.1 % (2.0-9.0); NEUTROPHILS # (AUTO) 5.3 K/uL (1.8-7.7); NEUTROPHILS % (AUTO) 68.5 % (40.0-70.0); PLATELET COUNT (AUTO) 239 K/uL (150-450); RED BLOOD CELL COUNT(AUTO) 4.95 MIL/uL (4.00-5.20); RED CELL DISTRIBUTION WIDTH 13.1 % (11.5-14.5)
[2018-12-03 07:22] LABS: HEMOGLOBIN A1C 5.6 % (4.5-6.2)
[2018-12-03 07:28] LABS: ALANINE AMINOTRANSFERASE 26 U/L (12-78); ALBUMIN 3.5 g/dL (3.4-5.0); ALKALINE PHOSPHATASE 72 U/L (46-116); ANION GAP 7 mmol/L (8-16); ASPARTATE AMINOTRANSFERASE 19 U/L (15-37); BILIRUBIN,TOTAL 0.5 mg/dL (0.1-1.0); CALCIUM, TOTAL 9.2 mg/dL (8.8-10.5); CARBON DIOXIDE 28 mmol/L (22-29); CHLORIDE 106 mmol/L (98-107); CHOL/HDL RATIO 4.5 (3.9-5.7); CHOLESTEROL 167 mg/dL (131-200); CREATININE 0.71 mg/dL (0.60-1.30); GLOMERULAR FILTR. RATE CALC > 60 mL/min (>60); GLUCOSE,RANDOM 106 mg/dL (70-110); HDL CHOLESTEROL 37 mg/dL (40-60); LDL CHOL (CALC.) 102 mg/dL (0-130); POTASSIUM 3.9 mmol/L (3.5-5.1); SODIUM SERUM 141 mmol/L (136-145); THYROID STIMULATING HORMONE 0.09 uIU/mL (0.36-3.74); TOTAL PROTEIN, SERUM 7.1 g/dL (6.4-8.2); TRIGLYCERIDES 138 mg/dL (15-150); UREA NITROGEN, BLOOD 14 mg/dL (7-18)
[2018-12-03] MEDS: LORazepam 2 MG TABLET PO PRN (08:54)
[2018-12-03] MEDS ORDERED: ONDANSETRON HCL 4 MG TABLET PO PRN (09:00)
[2018-12-03] MEDS ORDERED: PETROLATUM,WHITE 28 GM JELLY TP PRN (09:00)
[2018-12-03] MEDS ORDERED: GuaiFENesin/D-METHORPHAN [SUGAR-FREE] 200-20MG/10 ML SYRUP UDCUP PO PRN (09:00)
[2018-12-03] MEDS ORDERED: DOCUSATE SODIUM 100 MG CAPSULE PO PRN (09:00)
[2018-12-03] MEDS ORDERED: LOPERAMIDE HCL 2 MG CAPSULE PO PRN (09:00)
[2018-12-03] MEDS ORDERED: ALBUTEROL SULFATE HFA 90 MCG/PUFF 8 GM INHALER IH PRN (09:00)
[2018-12-03] MEDS ORDERED: MAG HYDROX/AL HYDROX/SIMETH ES 30 ML SUSPENSION UDCUP PO PRN (09:00)
[2018-12-03] MEDS ORDERED: CloNIDine HCL 0.1 MG TABLET PO PRN (09:00)
[2018-12-03 09:12] VITALS: BP 132/96
[2018-12-03] MEDS: NICOTINE 21 MG/24 HOUR PATCH TD SCH (10:42)
[2018-12-03] MEDS: GABAPENTIN 300 MG CAPSULE PO SCH ×2 (12:30→20:35)
[2018-12-03] MEDS: OLANZapine 10 MG TABLET PO SCH ×2 (12:30→20:35)
[2018-12-03] MEDS: DULoxetine HCL 30 MG CAPSULE PO SCH (12:30)
[2018-12-03 16:00] VITALS: BP 111/63
[2018-12-03] MEDS ORDERED: PNEUMOCOCCAL VACCINE POLYVALENT 0.5 ML VIAL [PPSV23] IM ONE (18:15)
[2018-12-04 05:59] VITALS: BP 112/60
[2018-12-04] MEDS: LEVOTHYROXINE SODIUM 112 MCG TABLET PO SCH (06:31)
[2018-12-04 08:02] LABS: BASOPHILS % (AUTO) 0.1 % (0.0-2.0); EOSINOPHILS % (AUTO) 0.2 % (1.0-6.0); HEMATOCRIT 43.3 % (36-46); HEMOGLOBIN 14.5 g/dL (12.0-16.0); LYMPHOCYTES # (AUTO) 1.8 K/uL (1.0-4.8); LYMPHOCYTES % (AUTO) 30.4 % (22.0-44.0); MEAN CORPUSCULAR HEMOGLOBIN 29.9 pg (26.0-34.0); MEAN CORPUSCULAR HGB CONC 33.6 G/dL (31.0-37.0); MEAN CORPUSCULAR VOLUME 89 fL (80-100); MONOCYTES # (AUTO) 0.3 K/uL (0.1-1.0); MONOCYTES % (AUTO) 4.9 % (2.0-9.0); NEUTROPHILS # (AUTO) 3.9 K/uL (1.8-7.7); NEUTROPHILS % (AUTO) 64.4 % (40.0-70.0); PLATELET COUNT (AUTO) 230 K/uL (150-450); RED BLOOD CELL COUNT(AUTO) 4.85 MIL/uL (4.00-5.20); RED CELL DISTRIBUTION WIDTH 12.8 % (11.5-14.5)
[2018-12-04 08:18] VITALS: BP 100/54
[2018-12-04] MEDS: DULoxetine HCL 30 MG CAPSULE PO SCH (08:29)
[2018-12-04] MEDS: GABAPENTIN 300 MG CAPSULE PO SCH ×2 (08:29→20:03)
[2018-12-04] MEDS: NICOTINE 21 MG/24 HOUR PATCH TD SCH (08:29)
[2018-12-04] MEDS: OLANZapine 10 MG TABLET PO SCH ×2 (08:29→20:03)
[2018-12-04 08:31] LABS: ALANINE AMINOTRANSFERASE 29 U/L (12-78); ALBUMIN 3.5 g/dL (3.4-5.0); ALKALINE PHOSPHATASE 75 U/L (46-116); ANION GAP 10 mmol/L (8-16); ASPARTATE AMINOTRANSFERASE 17 U/L (15-37); BILIRUBIN,TOTAL 0.4 mg/dL (0.1-1.0); CALCIUM, TOTAL 9.1 mg/dL (8.8-10.5); CARBON DIOXIDE 28 mmol/L (22-29); CHLORIDE 106 mmol/L (98-107); CHOL/HDL RATIO 4.6 (3.9-5.7); CHOLESTEROL 170 mg/dL (131-200); CREATININE 0.63 mg/dL (0.60-1.30); GLOMERULAR FILTR. RATE CALC > 60 mL/min (>60); GLUCOSE,RANDOM 103 mg/dL (70-110); HDL CHOLESTEROL 37 mg/dL (40-60); LDL CHOL (CALC.) 107 mg/dL (0-130); POTASSIUM 4.1 mmol/L (3.5-5.1); SODIUM SERUM 144 mmol/L (136-145); TOTAL PROTEIN, SERUM 7.1 g/dL (6.4-8.2); TRIGLYCERIDES 130 mg/dL (15-150); UREA NITROGEN, BLOOD 15 mg/dL (7-18)
[2018-12-04] MEDS: RANITIDINE HCL 150 MG TABLET PO SCH (08:36)
[2018-12-04 16:03] VITALS: BP 103/56
[2018-12-04] MEDS: MAGNESIUM HYDROXIDE SUSPENSION 30 ML UDCUP PO PRN (21:29)
[2018-12-05 06:12] VITALS: BP 132/77
[2018-12-05] MEDS: LEVOTHYROXINE SODIUM 112 MCG TABLET PO SCH (06:31)
[2018-12-05] MEDS: DULoxetine HCL 30 MG CAPSULE PO SCH (08:15)
[2018-12-05] MEDS: OLANZapine 10 MG TABLET PO SCH ×2 (08:15→20:48)
[2018-12-05] MEDS: RANITIDINE HCL 150 MG TABLET PO SCH (08:15)
[2018-12-05 08:16] VITALS: BP 106/80
[2018-12-05] MEDS: NICOTINE 21 MG/24 HOUR PATCH TD SCH (08:16)
[2018-12-05] MEDS: GABAPENTIN 300 MG CAPSULE PO SCH ×2 (09:55→20:48)
[2018-12-05 16:41] VITALS: BP 116/68
[2018-12-06] MEDS: LEVOTHYROXINE SODIUM 112 MCG TABLET PO SCH (06:05)
[2018-12-06 06:11] VITALS: BP 115/77
[2018-12-06 08:09] VITALS: BP 121/64
[2018-12-06 08:23] LABS: BILIRUBIN,URINE NEGATIVE (NEGATIVE); GLUCOSE, URINE (UA) NEGATIVE (NEGATIVE); KETONES,URINE NEGATIVE (NEGATIVE); LEUKOCYTE ESTERASE ,URINE NEGATIVE (NEGATIVE); NITRATE,URINE NEGATIVE (NEGATIVE); OCCULT BLOOD,URINE NEGATIVE (NEGATIVE); PH,URINE 7.5 (5.0-8.0); PROTEIN,URINE NEGATIVE (NEGATIVE); UROBILINOGEN,URINE 0.2 mg/dL (<=1.0)
[2018-12-06 08:26] LABS: AMPHET/METH SCREEN,URINE NEGATIVE (NEGATIVE); BARBITURATE SCREEN, URINE NEGATIVE (NEGATIVE); BENZODIAZEPINES SCREEN,URINE NEGATIVE (NEGATIVE); CANNABINOID SCREEN,URINE NEGATIVE (NEGATIVE); COCAINE SCREEN,URINE NEGATIVE (NEGATIVE); METHADONE SCREEN, URINE NEGATIVE (NEGATIVE); OPIATE SCREEN,URINE NEGATIVE (NEGATIVE)
[2018-12-06 08:27] LABS: PHENCYCLIDINE SCREEN,URINE NEGATIVE (NEGATIVE)
[2018-12-06 08:36] LABS: APPEARANCE,URINE CLEAR (CLEAR)
[2018-12-06] MEDS: NICOTINE 21 MG/24 HOUR PATCH TD SCH (09:17)
[2018-12-06] MEDS: OLANZapine 10 MG TABLET PO SCH ×2 (09:17→20:24)
[2018-12-06] MEDS: DULoxetine HCL 30 MG CAPSULE PO SCH (09:17)
[2018-12-06] MEDS: GABAPENTIN 300 MG CAPSULE PO SCH ×2 (09:17→20:24)
[2018-12-06] MEDS: RANITIDINE HCL 150 MG TABLET PO SCH (09:17)
[2018-12-06 16:03] VITALS: BP 138/77
[2018-12-06] MEDS: MAGNESIUM HYDROXIDE SUSPENSION 30 ML UDCUP PO PRN (19:45)
[2018-12-07 06:17] VITALS: BP 115/80
[2018-12-07] MEDS: LEVOTHYROXINE SODIUM 112 MCG TABLET PO SCH (06:25)
[2018-12-07 08:14] VITALS: BP 151/71
[2018-12-07] MEDS: RANITIDINE HCL 150 MG TABLET PO SCH (08:16)
[2018-12-07] MEDS: NICOTINE 21 MG/24 HOUR PATCH TD SCH (08:16)
[2018-12-07] MEDS: OLANZapine 10 MG TABLET PO SCH ×2 (08:17→21:12)
[2018-12-07] MEDS: GABAPENTIN 300 MG CAPSULE PO SCH ×2 (08:17→21:12)
[2018-12-07] MEDS: DULoxetine HCL 30 MG CAPSULE PO SCH (08:17)
[2018-12-07] MEDS: LORazepam 2 MG TABLET PO PRN (10:08)
[2018-12-07 16:17] VITALS: BP 125/75
[2018-12-08 06:11] VITALS: BP 127/66
[2018-12-08] MEDS: LEVOTHYROXINE SODIUM 112 MCG TABLET PO SCH (06:27)
[2018-12-08 08:07] VITALS: BP 137/81
[2018-12-08] MEDS: DULoxetine HCL 30 MG CAPSULE PO SCH (08:39)
[2018-12-08] MEDS: OLANZapine 10 MG TABLET PO SCH ×2 (08:39→20:22)
[2018-12-08] MEDS: NICOTINE 21 MG/24 HOUR PATCH TD SCH (08:39)
[2018-12-08] MEDS: GABAPENTIN 300 MG CAPSULE PO SCH ×2 (08:39→20:22)
[2018-12-08] MEDS: RANITIDINE HCL 150 MG TABLET PO SCH (08:39)
[2018-12-08 16:06] VITALS: BP 127/53
[2018-12-09 06:09] VITALS: BP 135/80
[2018-12-09] MEDS: LEVOTHYROXINE SODIUM 112 MCG TABLET PO SCH (06:45)
[2018-12-09 08:09] VITALS: BP 140/73
[2018-12-09] MEDS: NICOTINE 21 MG/24 HOUR PATCH TD SCH (08:40)
[2018-12-09] MEDS: DULoxetine HCL 30 MG CAPSULE PO SCH (08:40)
[2018-12-09] MEDS: OLANZapine 10 MG TABLET PO SCH ×2 (08:40→20:34)
[2018-12-09] MEDS: GABAPENTIN 300 MG CAPSULE PO SCH ×2 (08:40→20:34)
[2018-12-09] MEDS: RANITIDINE HCL 150 MG TABLET PO SCH (08:40)
[2018-12-09 16:36] VITALS: BP 123/70
[2018-12-10 06:19] VITALS: BP 139/79
[2018-12-10] MEDS: LEVOTHYROXINE SODIUM 112 MCG TABLET PO SCH (06:28)
[2018-12-10] MEDS: DULoxetine HCL 30 MG CAPSULE PO SCH (08:19)
[2018-12-10] MEDS: NICOTINE 21 MG/24 HOUR PATCH TD SCH (08:19)
[2018-12-10] MEDS: GABAPENTIN 300 MG CAPSULE PO SCH ×2 (08:19→20:18)
[2018-12-10] MEDS: RANITIDINE HCL 150 MG TABLET PO SCH (08:19)
[2018-12-10] MEDS: OLANZapine 10 MG TABLET PO SCH ×2 (08:19→20:18)
[2018-12-10 09:55] VITALS: BP 132/84
[2018-12-10 16:02] VITALS: BP 116/73
[2018-12-10] MEDS: MAGNESIUM HYDROXIDE SUSPENSION 30 ML UDCUP PO PRN (17:26)
[2018-12-11] MEDS: LEVOTHYROXINE SODIUM 112 MCG TABLET PO SCH (06:42)
[2018-12-11 07:00] VITALS: BP 121/72
[2018-12-11] MEDS: GABAPENTIN 300 MG CAPSULE PO SCH ×2 (08:04→20:04)
[2018-12-11] MEDS: OLANZapine 10 MG TABLET PO SCH ×2 (08:04→20:04)
[2018-12-11] MEDS: DULoxetine HCL 30 MG CAPSULE PO SCH (08:04)
[2018-12-11] MEDS: NICOTINE 21 MG/24 HOUR PATCH TD SCH (08:04)
[2018-12-11] MEDS: RANITIDINE HCL 150 MG TABLET PO SCH (08:04)
[2018-12-11 08:16] VITALS: BP 132/58
[2018-12-11 16:03] VITALS: BP 140/81
[2018-12-11] MEDS: ACETAMINOPHEN 325 MG TABLET PO PRN (17:26)
[2018-12-12 00:50] VITALS: BP 120/62
[2018-12-12] MEDS: LEVOTHYROXINE SODIUM 112 MCG TABLET PO SCH (06:32)
[2018-12-12] MEDS: DULoxetine HCL 30 MG CAPSULE PO SCH (08:04)
[2018-12-12] MEDS: OLANZapine 10 MG TABLET PO SCH ×2 (08:04→20:38)
[2018-12-12] MEDS: RANITIDINE HCL 150 MG TABLET PO SCH (08:05)
[2018-12-12] MEDS: GABAPENTIN 300 MG CAPSULE PO SCH ×2 (08:05→20:38)
[2018-12-12] MEDS: NICOTINE 21 MG/24 HOUR PATCH TD SCH (08:05)
[2018-12-12 08:12] VITALS: BP 135/68
[2018-12-12 16:05] VITALS: BP 125/100
[2018-12-13 06:27] VITALS: BP 117/65
[2018-12-13] MEDS: LEVOTHYROXINE SODIUM 112 MCG TABLET PO SCH (06:43)
[2018-12-13] MEDS: RANITIDINE HCL 150 MG TABLET PO SCH (08:10)
[2018-12-13] MEDS: NICOTINE 21 MG/24 HOUR PATCH TD SCH (08:10)
[2018-12-13] MEDS: OLANZapine 10 MG TABLET PO SCH ×2 (08:11→21:29)
[2018-12-13] MEDS: DULoxetine HCL 30 MG CAPSULE PO SCH (08:11)
[2018-12-13] MEDS: GABAPENTIN 300 MG CAPSULE PO SCH ×2 (08:12→21:29)
[2018-12-13 08:21] VITALS: BP 137/67
[2018-12-13 16:31] VITALS: BP 128/82
[2018-12-14 00:55] VITALS: BP 120/74
[2018-12-14] MEDS: LEVOTHYROXINE SODIUM 112 MCG TABLET PO SCH (06:23)
[2018-12-14] MEDS: OLANZapine 10 MG TABLET PO SCH ×2 (08:01→20:12)
[2018-12-14] MEDS: GABAPENTIN 300 MG CAPSULE PO SCH ×2 (08:02→20:12)
[2018-12-14] MEDS: DULoxetine HCL 30 MG CAPSULE PO SCH (08:02)
[2018-12-14] MEDS: RANITIDINE HCL 150 MG TABLET PO SCH (08:03)
[2018-12-14] MEDS: NICOTINE 21 MG/24 HOUR PATCH TD SCH (08:03)
[2018-12-14 08:21] VITALS: BP 116/63
[2018-12-14 16:04] VITALS: BP 125/74
[2018-12-14] MEDS: MAGNESIUM HYDROXIDE SUSPENSION 30 ML UDCUP PO PRN (16:28)
[2018-12-15 05:50] VITALS: BP 129/67
[2018-12-15] MEDS: LEVOTHYROXINE SODIUM 112 MCG TABLET PO SCH (06:18)
[2018-12-15] MEDS: NICOTINE 21 MG/24 HOUR PATCH TD SCH (08:14)
[2018-12-15] MEDS: DULoxetine HCL 30 MG CAPSULE PO SCH (08:14)
[2018-12-15] MEDS: OLANZapine 10 MG TABLET PO SCH ×2 (08:14→20:13)
[2018-12-15] MEDS: GABAPENTIN 300 MG CAPSULE PO SCH ×2 (08:14→20:13)
[2018-12-15] MEDS: RANITIDINE HCL 150 MG TABLET PO SCH (08:14)
[2018-12-15 08:15] VITALS: BP 123/64
[2018-12-15 16:10] VITALS: BP 112/73
[2018-12-16 06:38] VITALS: BP 135/79
[2018-12-16] MEDS: LEVOTHYROXINE SODIUM 112 MCG TABLET PO SCH (06:39)
[2018-12-16 08:06] VITALS: BP 114/56
[2018-12-16] MEDS: RANITIDINE HCL 150 MG TABLET PO SCH (08:32)
[2018-12-16] MEDS: GABAPENTIN 300 MG CAPSULE PO SCH ×2 (08:32→20:19)
[2018-12-16] MEDS: DULoxetine HCL 30 MG CAPSULE PO SCH (08:32)
[2018-12-16] MEDS: FOLIC ACID 1 MG TABLET PO SCH (08:32)
[2018-12-16] MEDS: OLANZapine 10 MG TABLET PO SCH ×2 (08:32→20:19)
[2018-12-16] MEDS: NICOTINE 21 MG/24 HOUR PATCH TD SCH (08:33)
[2018-12-16] MEDS: MULTIVITAMINS WITH MINERALS, THERAPEUTIC TABLET PO SCH (08:35)
[2018-12-16 15:28] VITALS: BP 152/88
[2018-12-17 06:03] VITALS: BP 105/85
[2018-12-17] MEDS: LEVOTHYROXINE SODIUM 112 MCG TABLET PO SCH (06:43)
[2018-12-17 08:03] VITALS: BP 155/80
[2018-12-17] MEDS: LORazepam 2 MG TABLET PO PRN (09:31)
[2018-12-17] MEDS: RANITIDINE HCL 150 MG TABLET PO SCH (09:36)
[2018-12-17] MEDS: NICOTINE 21 MG/24 HOUR PATCH TD SCH (09:36)
[2018-12-17] MEDS: OLANZapine 10 MG TABLET PO SCH ×2 (09:37→20:20)
[2018-12-17] MEDS: MULTIVITAMINS WITH MINERALS, THERAPEUTIC TABLET PO SCH (09:37)
[2018-12-17] MEDS: GABAPENTIN 300 MG CAPSULE PO SCH ×2 (09:37→20:20)
[2018-12-17] MEDS: FOLIC ACID 1 MG TABLET PO SCH (09:37)
[2018-12-17] MEDS: DULoxetine HCL 30 MG CAPSULE PO SCH (10:11)
[2018-12-17 16:19] VITALS: BP 127/84
[2018-12-18 01:47] VITALS: BP 116/72
[2018-12-18] MEDS: LEVOTHYROXINE SODIUM 112 MCG TABLET PO SCH (06:35)
[2018-12-18 08:30] VITALS: BP 110/69
[2018-12-18] MEDS: MULTIVITAMINS WITH MINERALS, THERAPEUTIC TABLET PO SCH (08:38)
[2018-12-18] MEDS: OLANZapine 10 MG TABLET PO SCH ×2 (08:38→20:34)
[2018-12-18] MEDS: GABAPENTIN 300 MG CAPSULE PO SCH ×2 (08:38→20:34)
[2018-12-18] MEDS: FOLIC ACID 1 MG TABLET PO SCH (08:38)
[2018-12-18] MEDS: RANITIDINE HCL 150 MG TABLET PO SCH (08:39)
[2018-12-18] MEDS: NICOTINE 21 MG/24 HOUR PATCH TD SCH (08:39)
[2018-12-18] MEDS: DULoxetine HCL 30 MG CAPSULE PO SCH (08:39)
[2018-12-18] MEDS ORDERED: TUBERCULIN, PURIFIED PROTEIN DERIVATIVE 5 TU/0.1 ML SYRINGE ID ONE (09:45)
[2018-12-18] MEDS: LORazepam 2 MG TABLET PO PRN (10:08)
[2018-12-18 16:29] VITALS: BP 117/67
[2018-12-19 00:26] VITALS: BP 120/74
[2018-12-19] MEDS: LEVOTHYROXINE SODIUM 112 MCG TABLET PO SCH (06:41)
[2018-12-19] MEDS: GABAPENTIN 300 MG CAPSULE PO SCH ×2 (08:18→20:10)
[2018-12-19] MEDS: FOLIC ACID 1 MG TABLET PO SCH (08:18)
[2018-12-19] MEDS: DULoxetine HCL 30 MG CAPSULE PO SCH (08:18)
[2018-12-19] MEDS: OLANZapine 10 MG TABLET PO SCH ×2 (08:18→20:10)
[2018-12-19] MEDS: RANITIDINE HCL 150 MG TABLET PO SCH (08:18)
[2018-12-19] MEDS: NICOTINE 21 MG/24 HOUR PATCH TD SCH (08:18)
[2018-12-19] MEDS: MULTIVITAMINS WITH MINERALS, THERAPEUTIC TABLET PO SCH (08:18)
[2018-12-19 08:21] VITALS: BP 120/71
[2018-12-19] MEDS: LORazepam 2 MG TABLET PO PRN (10:56)
[2018-12-19 16:10] VITALS: BP 121/77
[2018-12-20 06:47] VITALS: BP 122/86
[2018-12-20] MEDS: LEVOTHYROXINE SODIUM 112 MCG TABLET PO SCH (07:00)
[2018-12-20 08:18] VITALS: BP 118/76
[2018-12-20] MEDS: GABAPENTIN 300 MG CAPSULE PO SCH ×2 (08:38→20:08)
[2018-12-20] MEDS: DULoxetine HCL 30 MG CAPSULE PO SCH (08:38)
[2018-12-20] MEDS: OLANZapine 10 MG TABLET PO SCH ×2 (08:38→20:09)
[2018-12-20] MEDS: FOLIC ACID 1 MG TABLET PO SCH (08:38)
[2018-12-20] MEDS: RANITIDINE HCL 150 MG TABLET PO SCH (08:38)
[2018-12-20] MEDS: MULTIVITAMINS WITH MINERALS, THERAPEUTIC TABLET PO SCH (08:38)
[2018-12-20] MEDS: NICOTINE 21 MG/24 HOUR PATCH TD SCH (08:39)
[2018-12-20 16:04] VITALS: BP 106/57
[2018-12-20] MEDS: MAGNESIUM HYDROXIDE SUSPENSION 30 ML UDCUP PO PRN (18:19)
[2018-12-21 00:32] VITALS: BP 112/88
[2018-12-21] MEDS: LORazepam 2 MG TABLET PO PRN (01:23)
[2018-12-21] MEDS: LEVOTHYROXINE SODIUM 112 MCG TABLET PO SCH (06:43)
[2018-12-21 08:02] VITALS: BP 113/70
[2018-12-21] MEDS: OLANZapine 10 MG TABLET PO SCH ×2 (08:17→20:47)
[2018-12-21] MEDS: RANITIDINE HCL 150 MG TABLET PO SCH (08:17)
[2018-12-21] MEDS: FOLIC ACID 1 MG TABLET PO SCH (08:17)
[2018-12-21] MEDS: DULoxetine HCL 60 MG CAPSULE PO SCH (08:17)
[2018-12-21] MEDS: GABAPENTIN 300 MG CAPSULE PO SCH ×2 (08:17→20:47)
[2018-12-21] MEDS: MULTIVITAMINS WITH MINERALS, THERAPEUTIC TABLET PO SCH (08:17)
[2018-12-21] MEDS: NICOTINE 21 MG/24 HOUR PATCH TD SCH (08:17)
[2018-12-21 16:02] VITALS: BP 125/86
[2018-12-21] MEDS: MAGNESIUM HYDROXIDE SUSPENSION 30 ML UDCUP PO PRN (18:05)
[2018-12-22] MEDS: LEVOTHYROXINE SODIUM 112 MCG TABLET PO SCH (06:35)
[2018-12-22 06:40] VITALS: BP 145/82
[2018-12-22 08:17] VITALS: BP 115/62
[2018-12-22] MEDS: NICOTINE 21 MG/24 HOUR PATCH TD SCH (09:15)
[2018-12-22] MEDS: MULTIVITAMINS WITH MINERALS, THERAPEUTIC TABLET PO SCH (09:15)
[2018-12-22] MEDS: GABAPENTIN 300 MG CAPSULE PO SCH ×2 (09:15→20:08)
[2018-12-22] MEDS: OLANZapine 10 MG TABLET PO SCH ×2 (09:16→20:08)
[2018-12-22] MEDS: DULoxetine HCL 60 MG CAPSULE PO SCH (09:16)
[2018-12-22] MEDS: RANITIDINE HCL 150 MG TABLET PO SCH (09:16)
[2018-12-22] MEDS: FOLIC ACID 1 MG TABLET PO SCH (09:16)
[2018-12-22] MEDS: MAGNESIUM HYDROXIDE SUSPENSION 30 ML UDCUP PO PRN (09:26)
[2018-12-22 16:10] VITALS: BP 119/90
[2018-12-22] MEDS: ACETAMINOPHEN 325 MG TABLET PO PRN (16:56)
[2018-12-22 21:00] VITALS: BP 136/72
[2018-12-23 01:45] VITALS: BP 137/78
[2018-12-23] MEDS: LEVOTHYROXINE SODIUM 112 MCG TABLET PO SCH (06:56)
[2018-12-23 08:56] VITALS: BP 117/64
[2018-12-23] MEDS: OLANZapine 10 MG TABLET PO SCH ×2 (09:37→20:24)
[2018-12-23] MEDS: MULTIVITAMINS WITH MINERALS, THERAPEUTIC TABLET PO SCH (09:37)
[2018-12-23] MEDS: FOLIC ACID 1 MG TABLET PO SCH (09:37)
[2018-12-23] MEDS: GABAPENTIN 300 MG CAPSULE PO SCH ×2 (09:38→20:24)
[2018-12-23] MEDS: DULoxetine HCL 60 MG CAPSULE PO SCH (09:38)
[2018-12-23] MEDS: RANITIDINE HCL 150 MG TABLET PO SCH (09:39)
[2018-12-23] MEDS: NICOTINE 21 MG/24 HOUR PATCH TD SCH (09:39)
[2018-12-23] MEDS: IBUPROFEN 400 MG TABLET PO PRN (12:55)
[2018-12-23 16:51] VITALS: BP 147/96
[2018-12-23] MEDS: LORazepam 2 MG TABLET PO PRN (22:27)
[2018-12-24] MEDS: LEVOTHYROXINE SODIUM 112 MCG TABLET PO SCH (06:34)
[2018-12-24 08:43] VITALS: BP 134/81
[2018-12-24] MEDS: DULoxetine HCL 60 MG CAPSULE PO SCH (08:51)
[2018-12-24] MEDS: RANITIDINE HCL 150 MG TABLET PO SCH (08:52)
[2018-12-24] MEDS: NICOTINE 21 MG/24 HOUR PATCH TD SCH (08:52)
[2018-12-24] MEDS: OLANZapine 10 MG TABLET PO SCH ×2 (08:52→20:07)
[2018-12-24] MEDS: GABAPENTIN 300 MG CAPSULE PO SCH ×2 (08:52→20:07)
[2018-12-24] MEDS: FOLIC ACID 1 MG TABLET PO SCH (08:52)
[2018-12-24] MEDS: MULTIVITAMINS WITH MINERALS, THERAPEUTIC TABLET PO SCH (08:52)
[2018-12-24 16:26] VITALS: BP 124/72
[2018-12-25] MEDS: LEVOTHYROXINE SODIUM 112 MCG TABLET PO SCH (06:34)
[2018-12-25] MEDS: MULTIVITAMINS WITH MINERALS, THERAPEUTIC TABLET PO SCH (09:25)
[2018-12-25] MEDS: FOLIC ACID 1 MG TABLET PO SCH (09:25)
[2018-12-25] MEDS: RANITIDINE HCL 150 MG TABLET PO SCH (09:25)
[2018-12-25] MEDS: DULoxetine HCL 60 MG CAPSULE PO SCH (09:25)
[2018-12-25] MEDS: NICOTINE 21 MG/24 HOUR PATCH TD SCH (09:25)
[2018-12-25] MEDS: GABAPENTIN 300 MG CAPSULE PO SCH ×2 (09:25→20:16)
[2018-12-25] MEDS: OLANZapine 10 MG TABLET PO SCH ×2 (09:25→20:16)
[2018-12-25 09:59] VITALS: BP 121/72
[2018-12-25 14:50] VITALS: BP 163/76
[2018-12-25] MEDS: IBUPROFEN 400 MG TABLET PO PRN (14:50)
[2018-12-25 16:17] VITALS: BP 121/67
[2018-12-26] MEDS: LEVOTHYROXINE SODIUM 112 MCG TABLET PO SCH (06:56)
[2018-12-26 08:00] VITALS: BP 135/73
[2018-12-26] MEDS: DULoxetine HCL 60 MG CAPSULE PO SCH (10:32)
[2018-12-26] MEDS: OLANZapine 10 MG TABLET PO SCH ×2 (10:32→20:48)
[2018-12-26] MEDS: MULTIVITAMINS WITH MINERALS, THERAPEUTIC TABLET PO SCH (10:33)
[2018-12-26] MEDS: FOLIC ACID 1 MG TABLET PO SCH (10:33)
[2018-12-26] MEDS: GABAPENTIN 300 MG CAPSULE PO SCH ×2 (10:33→20:48)
[2018-12-26] MEDS: RANITIDINE HCL 150 MG TABLET PO SCH (10:33)
[2018-12-26] MEDS: NICOTINE 21 MG/24 HOUR PATCH TD SCH (10:34)
[2018-12-26] MEDS: IBUPROFEN 400 MG TABLET PO PRN ×2 (10:43→19:29)
[2018-12-26] MEDS: ACETAMINOPHEN 325 MG TABLET PO PRN (16:47)
[2018-12-26 17:03] VITALS: BP 119/75
[2018-12-26 19:29] VITALS: BP 125/81
[2018-12-27 05:16] VITALS: BP 140/79
[2018-12-27] MEDS: IBUPROFEN 400 MG TABLET PO PRN ×2 (05:17→18:06)
[2018-12-27] MEDS: LEVOTHYROXINE SODIUM 112 MCG TABLET PO SCH (07:03)
[2018-12-27] MEDS: DULoxetine HCL 60 MG CAPSULE PO SCH (08:07)
[2018-12-27] MEDS: GABAPENTIN 300 MG CAPSULE PO SCH ×2 (08:07→20:26)
[2018-12-27] MEDS: RANITIDINE HCL 150 MG TABLET PO SCH (08:07)
[2018-12-27] MEDS: MULTIVITAMINS WITH MINERALS, THERAPEUTIC TABLET PO SCH (08:07)
[2018-12-27] MEDS: FOLIC ACID 1 MG TABLET PO SCH (08:07)
[2018-12-27] MEDS: OLANZapine 10 MG TABLET PO SCH ×2 (08:08→20:26)
[2018-12-27] MEDS: NICOTINE 21 MG/24 HOUR PATCH TD SCH (08:10)
[2018-12-27] MEDS: MAGNESIUM HYDROXIDE SUSPENSION 30 ML UDCUP PO PRN (08:26)
[2018-12-27 08:44] VITALS: BP 138/92
[2018-12-27] MEDS: AMOXICILLIN TRIHYDRATE 500 MG CAPSULE PO SCH (16:40)
[2018-12-27 18:03] VITALS: BP 146/85
[2018-12-28] MEDS: LEVOTHYROXINE SODIUM 112 MCG TABLET PO SCH (06:16)
[2018-12-28 08:05] VITALS: BP 127/89
[2018-12-28] MEDS: MULTIVITAMINS WITH MINERALS, THERAPEUTIC TABLET PO SCH (08:50)
[2018-12-28] MEDS: GABAPENTIN 300 MG CAPSULE PO SCH ×2 (08:50→20:59)
[2018-12-28] MEDS: OLANZapine 10 MG TABLET PO SCH ×2 (08:50→20:59)
[2018-12-28] MEDS: AMOXICILLIN TRIHYDRATE 500 MG CAPSULE PO SCH ×3 (08:50→16:43)
[2018-12-28] MEDS: FOLIC ACID 1 MG TABLET PO SCH (08:50)
[2018-12-28] MEDS: DULoxetine HCL 60 MG CAPSULE PO SCH (08:50)
[2018-12-28] MEDS: RANITIDINE HCL 150 MG TABLET PO SCH (08:50)
[2018-12-28] MEDS: NICOTINE 21 MG/24 HOUR PATCH TD SCH (09:12)
[2018-12-28] MEDS: MAGNESIUM HYDROXIDE SUSPENSION 30 ML UDCUP PO PRN (13:28)
[2018-12-28 16:44] VITALS: BP 142/89
[2018-12-28] MEDS: IBUPROFEN 400 MG TABLET PO PRN (16:44)
[2018-12-29] MEDS: LEVOTHYROXINE SODIUM 112 MCG TABLET PO SCH (06:19)
[2018-12-29] MEDS: NICOTINE 21 MG/24 HOUR PATCH TD SCH (08:53)
[2018-12-29] MEDS: DULoxetine HCL 60 MG CAPSULE PO SCH (08:54)
[2018-12-29] MEDS: RANITIDINE HCL 150 MG TABLET PO SCH (08:54)
[2018-12-29] MEDS: FOLIC ACID 1 MG TABLET PO SCH (08:54)
[2018-12-29] MEDS: GABAPENTIN 300 MG CAPSULE PO SCH ×2 (08:54→20:16)
[2018-12-29] MEDS: OLANZapine 10 MG TABLET PO SCH ×2 (08:54→20:16)
[2018-12-29] MEDS: MULTIVITAMINS WITH MINERALS, THERAPEUTIC TABLET PO SCH (08:54)
[2018-12-29] MEDS: AMOXICILLIN TRIHYDRATE 500 MG CAPSULE PO SCH ×3 (08:54→17:18)
[2018-12-29 10:15] VITALS: BP 118/77
[2018-12-29 16:45] VITALS: BP 152/94
[2018-12-30] MEDS: LEVOTHYROXINE SODIUM 112 MCG TABLET PO SCH (06:49)
[2018-12-30 08:05] VITALS: BP 124/76
[2018-12-30] MEDS: AMOXICILLIN TRIHYDRATE 500 MG CAPSULE PO SCH ×3 (09:14→16:40)
[2018-12-30] MEDS: GABAPENTIN 300 MG CAPSULE PO SCH ×2 (09:15→20:13)
[2018-12-30] MEDS: FOLIC ACID 1 MG TABLET PO SCH (09:15)
[2018-12-30] MEDS: MULTIVITAMINS WITH MINERALS, THERAPEUTIC TABLET PO SCH (09:15)
[2018-12-30] MEDS: OLANZapine 10 MG TABLET PO SCH ×2 (09:15→20:13)
[2018-12-30] MEDS: DULoxetine HCL 60 MG CAPSULE PO SCH (09:15)
[2018-12-30] MEDS: RANITIDINE HCL 150 MG TABLET PO SCH (09:15)
[2018-12-30] MEDS: NICOTINE 21 MG/24 HOUR PATCH TD SCH (09:18)
[2018-12-30 21:13] VITALS: BP 147/70
[2018-12-31] MEDS: LEVOTHYROXINE SODIUM 112 MCG TABLET PO SCH (07:01)
[2018-12-31 08:05] VITALS: BP 104/53
[2018-12-31] MEDS: AMOXICILLIN TRIHYDRATE 500 MG CAPSULE PO SCH ×3 (09:00→17:14)
[2018-12-31] MEDS: DULoxetine HCL 60 MG CAPSULE PO SCH (10:06)
[2018-12-31] MEDS: RANITIDINE HCL 150 MG TABLET PO SCH (10:07)
[2018-12-31] MEDS: GABAPENTIN 300 MG CAPSULE PO SCH ×2 (10:07→20:42)
[2018-12-31] MEDS: FOLIC ACID 1 MG TABLET PO SCH (10:07)
[2018-12-31] MEDS: MULTIVITAMINS WITH MINERALS, THERAPEUTIC TABLET PO SCH (10:07)
[2018-12-31] MEDS: OLANZapine 10 MG TABLET PO SCH ×2 (10:07→20:42)
[2018-12-31] MEDS: NICOTINE 21 MG/24 HOUR PATCH TD SCH (10:10)
[2018-12-31] MEDS: LORazepam 2 MG TABLET PO PRN (11:14)
[2018-12-31 16:36] VITALS: BP 130/77
[2019-01-01] MEDS: LEVOTHYROXINE SODIUM 112 MCG TABLET PO SCH (06:28)
[2019-01-01 08:42] VITALS: BP 105/67
[2019-01-01] MEDS: AMOXICILLIN TRIHYDRATE 500 MG CAPSULE PO SCH ×3 (11:11→16:38)
[2019-01-01] MEDS: RANITIDINE HCL 150 MG TABLET PO SCH (11:11)
[2019-01-01] MEDS: DULoxetine HCL 60 MG CAPSULE PO SCH (11:16)
[2019-01-01] MEDS: MULTIVITAMINS WITH MINERALS, THERAPEUTIC TABLET PO SCH (11:16)
[2019-01-01] MEDS: GABAPENTIN 300 MG CAPSULE PO SCH ×2 (11:17→20:15)
[2019-01-01] MEDS: FOLIC ACID 1 MG TABLET PO SCH (11:17)
[2019-01-01] MEDS: NICOTINE 21 MG/24 HOUR PATCH TD SCH (11:18)
[2019-01-01] MEDS: OLANZapine 10 MG TABLET PO SCH ×2 (11:18→20:15)
[2019-01-01] MEDS: SERTRALINE HCL 50 MG TABLET PO SCH (11:19)
[2019-01-01 16:44] VITALS: BP 129/81
[2019-01-02] MEDS: LEVOTHYROXINE SODIUM 112 MCG TABLET PO SCH (07:06)
[2019-01-02 08:25] VITALS: BP 127/84
[2019-01-02] MEDS: FOLIC ACID 1 MG TABLET PO SCH (09:38)
[2019-01-02] MEDS: RANITIDINE HCL 150 MG TABLET PO SCH (09:38)
[2019-01-02] MEDS: MULTIVITAMINS WITH MINERALS, THERAPEUTIC TABLET PO SCH (09:38)
[2019-01-02] MEDS: DULoxetine HCL 60 MG CAPSULE PO SCH (09:38)
[2019-01-02] MEDS: SERTRALINE HCL 50 MG TABLET PO SCH (09:38)
[2019-01-02] MEDS: GABAPENTIN 300 MG CAPSULE PO SCH ×2 (09:38→21:16)
[2019-01-02] MEDS: OLANZapine 10 MG TABLET PO SCH ×2 (09:38→21:16)
[2019-01-02] MEDS: AMOXICILLIN TRIHYDRATE 500 MG CAPSULE PO SCH ×3 (09:38→17:53)
[2019-01-02] MEDS: NICOTINE 21 MG/24 HOUR PATCH TD SCH (09:42)
[2019-01-02 18:42] VITALS: BP 129/62
[2019-01-03] MEDS: LEVOTHYROXINE SODIUM 112 MCG TABLET PO SCH (06:57)
[2019-01-03 08:51] VITALS: BP 119/77
[2019-01-03] MEDS: OLANZapine 10 MG TABLET PO SCH ×2 (09:34→21:34)
[2019-01-03] MEDS: SERTRALINE HCL 50 MG TABLET PO SCH (09:34)
[2019-01-03] MEDS: MULTIVITAMINS WITH MINERALS, THERAPEUTIC TABLET PO SCH (09:34)
[2019-01-03] MEDS: AMOXICILLIN TRIHYDRATE 500 MG CAPSULE PO SCH ×3 (09:34→16:04)
[2019-01-03] MEDS: RANITIDINE HCL 150 MG TABLET PO SCH (09:34)
[2019-01-03] MEDS: GABAPENTIN 300 MG CAPSULE PO SCH ×2 (09:34→21:36)
[2019-01-03] MEDS: FOLIC ACID 1 MG TABLET PO SCH (09:35)
[2019-01-03] MEDS: DULoxetine HCL 60 MG CAPSULE PO SCH (09:35)
[2019-01-03] MEDS: NICOTINE 21 MG/24 HOUR PATCH TD SCH (09:36)
[2019-01-03] MEDS: IBUPROFEN 400 MG TABLET PO PRN (15:58)
[2019-01-03 17:00] VITALS: BP 111/68
[2019-01-04] MEDS: LEVOTHYROXINE SODIUM 112 MCG TABLET PO SCH (06:51)
[2019-01-04 08:00] VITALS: BP 131/87
[2019-01-04] MEDS: GABAPENTIN 300 MG CAPSULE PO SCH ×2 (09:41→21:29)
[2019-01-04] MEDS: OLANZapine 10 MG TABLET PO SCH ×2 (09:41→21:29)
[2019-01-04] MEDS: RANITIDINE HCL 150 MG TABLET PO SCH (09:41)
[2019-01-04] MEDS: FOLIC ACID 1 MG TABLET PO SCH (09:41)
[2019-01-04] MEDS: MULTIVITAMINS WITH MINERALS, THERAPEUTIC TABLET PO SCH (09:41)
[2019-01-04] MEDS: SERTRALINE HCL 50 MG TABLET PO SCH (09:41)
[2019-01-04] MEDS: AMOXICILLIN TRIHYDRATE 500 MG CAPSULE PO SCH ×3 (09:41→16:29)
[2019-01-04] MEDS: DULoxetine HCL 60 MG CAPSULE PO SCH (09:42)
[2019-01-04] MEDS: NICOTINE 21 MG/24 HOUR PATCH TD SCH (09:58)
[2019-01-04 16:50] VITALS: BP 127/71
[2019-01-05] MEDS: LEVOTHYROXINE SODIUM 112 MCG TABLET PO SCH (07:13)
[2019-01-05 08:03] VITALS: BP 135/86
[2019-01-05] MEDS: MULTIVITAMINS WITH MINERALS, THERAPEUTIC TABLET PO SCH (08:38)
[2019-01-05] MEDS: DULoxetine HCL 60 MG CAPSULE PO SCH (08:38)
[2019-01-05] MEDS: GABAPENTIN 300 MG CAPSULE PO SCH ×2 (08:38→20:20)
[2019-01-05] MEDS: FOLIC ACID 1 MG TABLET PO SCH (08:38)
[2019-01-05] MEDS: RANITIDINE HCL 150 MG TABLET PO SCH (08:39)
[2019-01-05] MEDS: OLANZapine 10 MG TABLET PO SCH ×2 (08:39→20:20)
[2019-01-05] MEDS: SERTRALINE HCL 50 MG TABLET PO SCH (08:39)
[2019-01-05] MEDS: NICOTINE 21 MG/24 HOUR PATCH TD SCH (08:41)
[2019-01-05 16:11] VITALS: BP 130/71
[2019-01-06] MEDS: LEVOTHYROXINE SODIUM 112 MCG TABLET PO SCH (06:43)
[2019-01-06 08:30] VITALS: BP 143/97
[2019-01-06] MEDS: NICOTINE 21 MG/24 HOUR PATCH TD SCH (09:06)
[2019-01-06] MEDS: FOLIC ACID 1 MG TABLET PO SCH (09:06)
[2019-01-06] MEDS: RANITIDINE HCL 150 MG TABLET PO SCH (09:06)
[2019-01-06] MEDS: MULTIVITAMINS WITH MINERALS, THERAPEUTIC TABLET PO SCH (09:06)
[2019-01-06] MEDS: OLANZapine 10 MG TABLET PO SCH ×2 (09:06→20:23)
[2019-01-06] MEDS: DULoxetine HCL 60 MG CAPSULE PO SCH (09:06)
[2019-01-06] MEDS: SERTRALINE HCL 50 MG TABLET PO SCH (09:06)
[2019-01-06] MEDS: GABAPENTIN 300 MG CAPSULE PO SCH ×2 (09:06→20:23)
[2019-01-06 16:23] VITALS: BP 124/77
[2019-01-06] MEDS: MAGNESIUM HYDROXIDE SUSPENSION 30 ML UDCUP PO PRN (20:24)
[2019-01-07] MEDS: LEVOTHYROXINE SODIUM 112 MCG TABLET PO SCH (06:32)
[2019-01-07 08:06] VITALS: BP 135/79
[2019-01-07] MEDS: FOLIC ACID 1 MG TABLET PO SCH (08:09)
[2019-01-07] MEDS: OLANZapine 10 MG TABLET PO SCH ×2 (08:09→21:17)
[2019-01-07] MEDS: MULTIVITAMINS WITH MINERALS, THERAPEUTIC TABLET PO SCH (08:09)
[2019-01-07] MEDS: SERTRALINE HCL 50 MG TABLET PO SCH (08:09)
[2019-01-07] MEDS: DULoxetine HCL 60 MG CAPSULE PO SCH (08:09)
[2019-01-07] MEDS: RANITIDINE HCL 150 MG TABLET PO SCH (08:09)
[2019-01-07] MEDS: GABAPENTIN 300 MG CAPSULE PO SCH ×2 (08:09→21:17)
[2019-01-07] MEDS: NICOTINE 21 MG/24 HOUR PATCH TD SCH (08:10)
[2019-01-07 18:33] VITALS: BP 113/82
[2019-01-08] MEDS: LEVOTHYROXINE SODIUM 112 MCG TABLET PO SCH (06:58)
[2019-01-08 08:08] VITALS: BP 119/92
[2019-01-08] MEDS: FOLIC ACID 1 MG TABLET PO SCH (09:37)
[2019-01-08] MEDS: DULoxetine HCL 60 MG CAPSULE PO SCH (09:37)
[2019-01-08] MEDS: MULTIVITAMINS WITH MINERALS, THERAPEUTIC TABLET PO SCH (09:37)
[2019-01-08] MEDS: GABAPENTIN 300 MG CAPSULE PO SCH ×2 (09:37→21:24)
[2019-01-08] MEDS: RANITIDINE HCL 150 MG TABLET PO SCH (09:37)
[2019-01-08] MEDS: OLANZapine 10 MG TABLET PO SCH ×2 (09:37→21:24)
[2019-01-08] MEDS: SERTRALINE HCL 50 MG TABLET PO SCH (09:37)
[2019-01-08] MEDS: NICOTINE 21 MG/24 HOUR PATCH TD SCH (09:39)
[2019-01-08 16:15] VITALS: BP 118/63
[2019-01-09] MEDS: LEVOTHYROXINE SODIUM 112 MCG TABLET PO SCH (07:03)
[2019-01-09 09:00] VITALS: BP 141/96
[2019-01-09] MEDS: NICOTINE 21 MG/24 HOUR PATCH TD SCH (09:33)
[2019-01-09] MEDS: FOLIC ACID 1 MG TABLET PO SCH (09:33)
[2019-01-09] MEDS: RANITIDINE HCL 150 MG TABLET PO SCH (09:33)
[2019-01-09] MEDS: SERTRALINE HCL 50 MG TABLET PO SCH (09:33)
[2019-01-09] MEDS: GABAPENTIN 300 MG CAPSULE PO SCH ×2 (09:34→20:59)
[2019-01-09] MEDS: MULTIVITAMINS WITH MINERALS, THERAPEUTIC TABLET PO SCH (09:34)
[2019-01-09] MEDS: DULoxetine HCL 60 MG CAPSULE PO SCH (09:34)
[2019-01-09] MEDS: OLANZapine 10 MG TABLET PO SCH ×2 (09:34→20:59)
[2019-01-09 16:15] VITALS: BP 128/78
[2019-01-10 06:39] LABS: THYROID STIMULATING HORMONE 0.06 uIU/mL (0.36-3.74)
[2019-01-10] MEDS: LEVOTHYROXINE SODIUM 112 MCG TABLET PO SCH (07:04)
[2019-01-10 08:00] VITALS: BP 123/69
[2019-01-10] MEDS: SERTRALINE HCL 50 MG TABLET PO SCH (08:40)
[2019-01-10] MEDS: OLANZapine 10 MG TABLET PO SCH ×2 (08:40→20:57)
[2019-01-10] MEDS: RANITIDINE HCL 150 MG TABLET PO SCH (08:40)
[2019-01-10] MEDS: DULoxetine HCL 60 MG CAPSULE PO SCH (08:41)
[2019-01-10] MEDS: FOLIC ACID 1 MG TABLET PO SCH (08:41)
[2019-01-10] MEDS: GABAPENTIN 300 MG CAPSULE PO SCH ×2 (08:41→20:59)
[2019-01-10] MEDS: MULTIVITAMINS WITH MINERALS, THERAPEUTIC TABLET PO SCH (08:41)
[2019-01-10] MEDS: NICOTINE 21 MG/24 HOUR PATCH TD SCH (09:10)
[2019-01-10] MEDS: MAGNESIUM HYDROXIDE SUSPENSION 30 ML UDCUP PO PRN (13:32)
[2019-01-10 17:23] VITALS: BP 105/67
[2019-01-11] MEDS ORDERED: OLAN10TA3 PO (06:02)
[2019-01-11] MEDS ORDERED: GABA-531 PO (06:03)
[2019-01-11] MEDS ORDERED: DULO60CA44 PO (06:03)
[2019-01-11] MEDS ORDERED: SERT100T12 PO (06:04)
[2019-01-11] MEDS ORDERED: LEVOTHYROXINE SODIUM 50 MCG TABLET PO SCH (07:00)
[2019-01-11] MEDS: DULoxetine HCL 60 MG CAPSULE PO SCH (08:29)
[2019-01-11] MEDS: GABAPENTIN 300 MG CAPSULE PO SCH (08:29)
[2019-01-11] MEDS: RANITIDINE HCL 150 MG TABLET PO SCH (08:29)
[2019-01-11] MEDS: FOLIC ACID 1 MG TABLET PO SCH (08:29)
[2019-01-11] MEDS: MULTIVITAMINS WITH MINERALS, THERAPEUTIC TABLET PO SCH (08:29)
[2019-01-11] MEDS: OLANZapine 10 MG TABLET PO SCH (08:31)
[2019-01-11] MEDS: NICOTINE 21 MG/24 HOUR PATCH TD SCH (08:41)
[2019-01-11] MEDS ORDERED: BISACODYL 10 MG RECTAL RECTAL SUPPOSITORY PR PRN (08:45)
[2019-01-11] MEDS ORDERED: LEVO50 PO (08:49)
[2019-01-11] MEDS ORDERED: MULT-1239 PO (08:49)
[2019-01-11] MEDS ORDERED: FOLI1 PO (08:49)
[2019-01-11] MEDS ORDERED: NICO-704 TD (08:49)
[2019-01-11] MEDS ORDERED: SERTRALINE HCL 100 MG TABLET PO SCH (09:00)
== END 2019-01-11 09:30 | DRG 753 ==
LOC: EMS 11:00 → B3A 12-03 08:48 → 2WR 12-16 21:45 → B2S 12-16 21:46 → 3EI 12-22 20:46
PROVIDERS: ATTEND Psychiatry & Neurology Psychiatry
DX: F31.4 Bipolar disorder, current episode depressed, severe, without psychotic features (principal); R45.851 Suicidal ideations; F22 Delusional disorders; E03.9 Hypothyroidism, unspecified; K21.9 Gastro-esophageal reflux disease without esophagitis; M19.90 Unspecified osteoarthritis, unspecified site; F17.200 Nicotine dependence, unspecified, uncomplicated; I10 Essential (primary) hypertension; K04.7 Periapical abscess without sinus; F41.0 Panic disorder [episodic paroxysmal anxiety]; F43.10 Post-traumatic stress disorder, unspecified; J45.909 Unspecified asthma, uncomplicated; R45.87 Impulsiveness; Z88.8 Allergy status to other drugs, medicaments and biological substances; Z79.899 Other long term (current) drug therapy; Z28.21 Immunization not carried out because of patient refusal
CPT/HCPCS: 83036; 84439; 84443; 87081; G0480